=== PATIENT | female | born 1955 | race Caucasian/White ===

== ENCOUNTER → 2018-05-17 09:54 | Outpatient (CLI) | payer MEDICARE, SELFPAY ==
--- NOTE | 2018-05-17 09:58 | RAD_ITS ---
STUDY: X-RAY CHEST REASON FOR EXAM: Female, 63 years old. Chest pain TECHNIQUE: Frontal and lateral views of the chest COMPARISON: 07/01/2015 FINDINGS: There are stable emphysematous changes noted in the lungs. The lungs are otherwise clear. There are no pleural effusions. There is no pneumothorax. The heart is normal in size. The visualized osseous structures are within normal limits. RAD/Chest PA and Lateral IMPRESSION: No acute thoracic pathology. Electronically Signed: Cornelio Zamora, at 18:38 EDT Tel , Service support ,
== END ==
PROVIDERS: Family Provider Preventive Medicine Occupational Medicine; PCP Preventive Medicine Occupational Medicine; Referring Provider Internal Medicine Pulmonary Disease; Visit Provider Internal Medicine Pulmonary Disease
DX: D86.9 Sarcoidosis, unspecified (principal)
CPT/HCPCS: 71046

== ENCOUNTER → 2019-03-02 10:41 | Outpatient (CLI) | payer MEDICARE, SELFPAY ==
[2019-03-02 10:37] VITALS: BMI 26.9
--- NOTE | 2019-03-02 10:42 | RAD_ITS ---
STUDY: X-RAY - RIGHT KNEE REASON FOR EXAM: Knee pain and swelling after a fall. TECHNIQUE: 4 view(s) of the knee. COMPARISON: None. FINDINGS: There is osteopenia. Normal visualized distal femur. Normal visualized proximal tibia and fibula. Normal proximal tibiofibular articulation. Normal medial femorotibial compartment. Normal lateral femorotibial compartment. There are minimal marginal osteophytes and mild joint space narrowing of the patellofemoral articulation. There is a small joint effusion. RAD/Knee 4 or More Views IMPRESSION: Mild patellofemoral arthrosis. Small joint effusion. Osteopenia. Electronically Signed: Eldon Ramírez MD at 12:11 EDT Tel , Service support ,
== END ==
PROVIDERS: Family Provider Preventive Medicine Occupational Medicine; PCP Preventive Medicine Occupational Medicine; Referring Provider Physician Assistant; Visit Provider Physician Assistant
DX: M17.11 Unilateral primary osteoarthritis, right knee (principal); M25.461 Effusion, right knee
CPT/HCPCS: 73564

== ENCOUNTER → 2019-09-22 15:30 | Outpatient (CLI) | payer MEDICARE, MEDICAID, SELFPAY ==
[2019-06-21 12:20] VITALS: BMI 25.3
--- NOTE | 2019-09-22 15:50 | RAD_ITS ---
STUDY: X-RAY CHEST REASON FOR EXAM: Female, 64 years old. cough for a couple weeks, Hx sarcoid TECHNIQUE: PA and lateral views of the chest. COMPARISON: 05/17/2018 FINDINGS: Fibrotic scarring of the right lung is stable since the prior study with retraction of the medial right hemidiaphragm. No airspace consolidation. Normal size heart. There are calcified mediastinal lymph nodes. Normal visualized pulmonary arteries. There is atherosclerotic calcification of the aortic arch with tortuosity. There is demineralization of the osseous structures. Normal visualized ribs, clavicles, and shoulders. There is no demonstrated abnormality of the visualized soft tissue structures of the upper abdomen. RAD/Chest PA and Lateral IMPRESSION: 1. No airspace consolidation or pleural effusion. Stable exam. 2. Similar fibrotic changes, since 2018. Electronically Signed: Dipak Orozco MD (Brooks) at 16:29 EST , Service support ,
[2019-09-22 15:55] LABS: Absolute Lymphocyte Count 0.84 X10^3/uL (0.83-4.51); Absolute Neutrophil Count 5.1 X10^3/uL (2.0-7.7); Basophil# 0.02 X10^3/uL; Basophil% 0.3 % (0-1); Eosinophil# 0.06 X10^3/uL; Eosinophils% 0.9 % (0-5); Hematocrit 37.5 % (37-47); Hemoglobin 12.3 g/dL (12.0-15.0); Lymphocyte # 0.84 X10^3/ul (4.0); Lymphocyte % 12.4 % (19-41); Mean Corp Hgb Conc 32.8 g/dL (32-36); Mean Corpuscular Hgb 31.1 pg (27.0-32.0); Mean Corpuscular Volume 94.7 fL (81-99); Mean Platelet Vol. 11.8 fl (6.2-12.0); Monocyte# 0.78 X10^3/uL; Monocyte% 11.5 % (0-10); NRBC Flagged by Analyzer 0 % (0-5); Neutrophil # 5.08 X10^3/uL (2.7-7.7); Neutrophil % 74.6 % (47-70); Platelet Count 143 K/mm3 (150-450); RBC Distribution Width CV 12.7 % (11.6-14.6); Red Blood Count 3.96 M/mm3 (4.2-5.4); White Blood Count 6.8 K/mm3 (4.4-11.0)
[2019-09-22 16:07] LABS: Erythrocyte Sedimentation Rate 18 mm/hr (0-30)
[2019-09-25 17:41] LABS: Angiotensin Convert Enzyme 76 U/L (14-82)
== END ==
PROVIDERS: PCP Family Medicine; Referring Provider Internal Medicine Pulmonary Disease; Visit Provider Internal Medicine Pulmonary Disease
DX: D86.9 Sarcoidosis, unspecified (principal); J84.9 Interstitial pulmonary disease, unspecified
CPT/HCPCS: 36415; 71046; 82164; 85025; 85652; 87804

== ENCOUNTER 2019-09-23 13:27 | Inpatient (IN) | payer MEDICARE, MEDICAID, SELFPAY ==
[2019-06-21 12:20] VITALS: BMI 25.3
[2019-09-23] VITALS (25 sets, daily range): BP systolic 84–172; BP diastolic 24–93; PULSE 80–129; RESP 12–30; TEMP 36.1–36.8; O2SAT 90–100; BMI 24.7; BMI 24.2
--- NOTE | 2019-09-23 14:00 | RAD_ITS ---
STUDY: X-RAY CHEST REASON FOR EXAM: Female, 64 years old. cough TECHNIQUE: Single AP portable view of the chest. COMPARISON: 09/22/2019, 05/17/2018 FINDINGS: Fibrotic scarring of the right lung is stable since the prior study with retraction of the medial right hemidiaphragm. No airspace consolidation. Normal size heart. There are calcified mediastinal lymph nodes. Normal visualized pulmonary arteries. There is atherosclerotic calcification of the aortic arch with tortuosity. There is demineralization of the osseous structures. Normal visualized ribs, clavicles, and shoulders. There is no demonstrated abnormality of the visualized soft tissue structures of the upper abdomen. RAD/Chest 1 View (Portable) IMPRESSION: 1. No airspace consolidation or pleural effusion. Stable exam. 2. Similar fibrotic changes, since 2018. Electronically Signed: Dipak Orozco MD (Brooks) at 14:36 EST , Service support ,
--- NOTE | 2019-09-23 14:00 | EKG12_ITS ---
Test Reason : Blood Pressure : / mmHG Vent. Rate : 074 BPM Atrial Rate : 074 BPM P-R Int : 142 ms QRS Dur : 080 ms QT Int : 404 ms P-R-T Axes : 030 019 058 degrees QTc Int : 448 ms Normal sinus rhythm Nonspecific ST abnormality Abnormal ECG Confirmed by NOMAN GUO, DAMIAN ([id number]), news assignment editor CRISTIAN SMILEY ([id number]) on 09/25/2019 2:14:29 PM Referred By: ALPESH Confirmed By:SERA TINEO MD
--- NOTE | 2019-09-23 14:02 | ED.DCSUM_ITS ---
- ER Visit Summary Date of Service: 09/23/19 Chief Complaint: Shortness of breath History of Present Illness: The patient is a 64 F who presents with shortness of breath that has been getting worse over the past 5 days. Patient states her breathing is worse with any exertion and with lying flat. Patient lives at [facility]. Patient was having a fever there of 101.2. Patient was started on Levaquin yesterday. Patient states she is only coughing up some white sputum. Patient also admits to a sore throat and generalized weakness. Patient denies any chest pain. Patient denies any nausea or vomiting. Physical Examination: Vital signs are stable except for a tachypnea of 28. Patient is afebrile here. Patient is in no acute distress. Oral mucosa is pink and moist. Neck is supple. Trachea is midline. There is no JVD. Heart was regular rate and rhythm. Lungs showed diffuse rhonchi. There is adequate respiratory effort. There are no retractions noted. Abdomen is soft. Bowel sounds are normal. There is no tenderness. Cranial nerves II through XII are intact. There are no focal motor or sensory deficits noted. Test Results: Sepsis order set was initiated. CBC shows a mild anemia with hemoglobin of 11.8 and hematocrit 36.7. Comprehensive metabolic profile was essentially within normal limits. PT with INR was normal. PTT was normal. Urinalysis does not show any evidence of urinary tract infection. Lactate was elevated at 2.2. Portable chest x-ray does not show any acute cardiopulmonary process. Emergency Department Course and Treatment: Patient was given IV fluids here. Patient is feeling better on reevaluation. Patient was started on Zosyn and vancomycin. Case was discussed with the hospitalist. He will admit the patient to the hospital. Family and the patient understand and are agreeable with the plan. Disposition: Admit to hospital Impression: 1. Severe sepsis 2. Clinical pneumonia This note was generated with [employer] dictation software. It may contain incorrect words, spelling, and punctuation that were not noted in review of the chart prior to signing ED Disposition - Plan for ED Patient: Disposition: Acute Care Hospital [facility] Diagnosis: Severe sepsis, Pneumonia Referrals: Rodger Obregon DO [Primary Care Provider] -
[2019-09-23] MEDS: 0.9% Normal Saline 1,000 ML 999 ML IV ×2 (14:11→19:09)
[2019-09-23 14:14] LABS: Absolute Lymphocyte Count 0.59 X10^3/uL (0.83-4.51); Absolute Neutrophil Count 6.5 X10^3/uL (2.0-7.7); Basophil# 0.02 X10^3/uL; Basophil% 0.2 % (0-1); Hematocrit 36.7 % (37-47); Hemoglobin 11.8 g/dL (12.0-15.0); Lymphocyte # 0.59 X10^3/ul (4.0); Lymphocyte % 7.2 % (19-41); Mean Corp Hgb Conc 32.2 g/dL (32-36); Mean Corpuscular Hgb 30.3 pg (27.0-32.0); Mean Corpuscular Volume 94.1 fL (81-99); Mean Platelet Vol. 11.6 fl (6.2-12.0); Monocyte# 1.01 X10^3/uL; Monocyte% 12.4 % (0-10); NRBC Flagged by Analyzer 0 % (0-5); Neutrophil # 6.52 X10^3/uL (2.7-7.7); Neutrophil % 79.8 % (47-70); POSITIVE DIFFERENTIAL YES; POSITIVE MORPHOLOGY YES; Platelet Count 125 K/mm3 (150-450); RBC Distribution Width CV 12.7 % (11.6-14.6); RBC Distribution Width SD 43.9 fl (35.1-43.9); White Blood Count 8.2 K/mm3 (4.4-11.0)
[2019-09-23 14:19] LABS: Differential Indicated SCAN CRITERIA MET
[2019-09-23 14:22] LABS: International Normalized Ratio 1.1; Prothrombin Time (Protime)PT. 14.1 SECONDS (11.7-14.9)
[2019-09-23 14:23] LABS: Partial Thromboplast Time 31.1 Seconds (24.1-36.2)
[2019-09-23 14:31] LABS: ALB/GLOB Ratio 0.7 RATIO (0.9-2.4); AST(SGOT) 16 U/L (15-37); Alanine Aminotransfer ALT/SGPT 15 U/L (13-56); Albumin, Serum 3.2 g/dL (3.2-5.0); Alkaline Phosphatase 60 U/L (45-117); Anion Gap 6 (5-15); BUN 28 mg/dL (7-18); BUN/Creat Ratio 32.7 RATIO (10-20); Calcium,Total 9.3 mg/dL (8.5-10.1); Chloride 105 mmol/L (98-107); Creatinine, Serum 0.86 mg/dL (0.55-1.02); EST Glomerular Filtration Rate 70 mL/min (>60); Est Glom Filt Rate - Afr Amer 85 mL/min (>60); Estimated Creatinine Clearance 53.23 ml/min; Globulin 4.6 g/dL (2.2-4.2); Glucose 109 mg/dL (74-106); Potassium 4.2 mmol/L (3.5-5.1); Protein, Total 7.8 g/dL (6.4-8.2); Sodium Level 140 mmol/L (136-145)
[2019-09-23 14:43] LABS: Bacteria 0 SEEN /hpf (None Seen); Mucous, Urine 0 SEEN /hpf (<or=2+)
[2019-09-23 14:45] LABS: Differential Comment SCANNED
[2019-09-23 14:50] LABS: Lactic Acid 2.2 mmol/L (0.4-1.9)
[2019-09-23 14:52] LABS: Color, Urine Yellow (Yellow); Glucose, Dipstick Normal (Normal); Leukocyte Esterase-Dipstick 25 /ul (Negative); Nitrite-Dipstick Negative (Negative); Occult Blood-Urine 50 /ul (Negative); Protein-Dipstick 100 mg/dl (Negative); Specific Gravity, Urine 1.025 (1.002-1.030); Urine Clarity Clear (Clear); Urine Urobilinogen 1 mg/dl (Normal)
[2019-09-23 14:54] LABS: Urine Bilirubin Dipstick 1 mg/dL (Negative)
[2019-09-23 14:56] LABS: Ketone-Dipstick 150 mg/dl (Negative)
[2019-09-23 15:05] LABS: Red Blood Cells-Urine 0-5 SEEN /hpf (0-5); Squamous Epithelial Cells - UA 0-5 SEEN /hpf (5-10); White Blood Cells 0-5 SEEN /hpf (0-5)
--- NOTE | 2019-09-23 16:02 | HP.PCM_ITS ---
<Rhett Maldonado - Last Filed: 09/23/19 16:02> Problem List (1) Severe sepsis Status: Acute (2) Bronchitis Status: Acute (3) Asthma Status: Chronic (4) Traumatic brain injury Status: Chronic (5) Pulmonary sarcoidosis Status: Chronic (6) Essential (primary) hypertension Status: Chronic (7) Cerebrovascular accident Status: Chronic History of Present Illness Date of Admission: 09/23/19 Chief Complaint: SOB The patient is a 64 year old F with pmhx of sarcoidosis, traumatic brain injury with behavioral disturbances, prior stroke, asthma, who presented to the ER from [facility] for SOB. The patient started feeling SOB on Wednesday. She was progressively more SOB every day, developed a nonproductive cough, and developed a fever up to 101.5 [facility] the [facility]. She went to see her test bore helper Dr. Diaz who placed her on steroids and levaquin. She had no relief. She has been more tired and not eating. She presents to the ER and feels SOB with a venti mask providing O2, however she was 94% on room air in the ER. Her is present and would like her admitted with IV fluid and antibiotics despite her DNRCC status. He does not want intubation/mechanical vent/CPR. [] Past Medical History Past Medical History (Chronic Problems): Chronic Problems (Last Reviewed 06/21/19 @ 14:[address] Josue Gregory MD) Asthma (Chronic) Traumatic brain injury (Chronic) Pulmonary sarcoidosis (Chronic) Essential (primary) hypertension (Chronic) Cerebrovascular accident (Chronic) Medical History: Medical History (Last Reviewed 06/21/19 @ 14:[address] Josue Gregory MD) Pulmonary sarcoidosis (Chronic) D86.0 Cerebrovascular accident (Chronic) I63.9 Anoxic brain damage Aphasia R47.01 Dysarthria R47.1 Dysphagia R13.10 Hypothyroid E03.9 History of cardiac arrest Z86.74 09/22/2013 Takotsubo cardiomyopathy I51.August Allergies Sulfa (Sulfonamide Antibiotics) Allergy (Severe, Verified 09/23/19 13:33) Hives Home Medications: Ambulatory Orders Medication Instructions Recorded Aspirin [Aspirin, Baby] 81 mg PO DAILY@0800 01/24/14 albuterol sulfate 2.5 mg INHALATION BID PRN PRN 05/11/18 carvedilol 3.125 mg tablet 6.25 mg PO BID tab 06/21/19 divalproex 250 mg tablet,delayed 375 mg PO QHS tab 06/21/19 release Acetaminophen 650 mg ID Q4H PRN PRN 09/23/19 Acetaminophen [Tylenol] 650 mg PO Q4H PRN PRN 09/23/19 Albuterol Sulfate 2.5 mg IH Q6H PRN PRN 09/23/19 Bisacodyl 10 mg ID DAILY PRN PRN 09/23/19 Budesonide 0.5 mg IH BID PRN PRN 09/23/19 Cefuroxime Axetil [Cefuroxime] 500 mg PO BID 09/23/19 Guaifenesin [Robitussin] 10 ml PO Q4H PRN PRN 09/23/19 Hydrocortisone Acetate 1 applic TP TID 09/23/19 Ipratropium/Albuterol Sulfate 3 ml IH Q4H 09/23/19 [Iprat-Albut 0.5-3(2.5) mg/3 ml] Levofloxacin [Levaquin] 500 mg PO DAILY 09/23/19 Mag Hydrox/Aluminum Hyd/Simeth 30 ml PO Q4H PRN PRN 09/23/19 [Antacid Anti-Gas Liquid] Magnesium Hydroxide [Milk Of 30 ml PO DAILY PRN PRN 09/23/19 Magnesia] Na Phos,M-B/Na Phos,Di-Ba [Fleet 1 bottle RECTAL DAILY PRN PRN 09/23/19 Enema] Nystatin Powder [Mycostatin Powder] 1 applic TOPICAL TID 09/23/19 Potassium Chloride [Klor-Con M20] 20 meq PO DAILY 09/23/19 Prednisone 20 mg PO DAILY 09/23/19 Prednisone 40 mg PO DAILY 09/23/19 Sennosides/Docusate Sodium [Senna 2 ea PO QHS 09/23/19 Plus 8.6-50 mg Softgel] Simethicone [Gas-X] 80 mg PO DAILY PRN PRN 09/23/19 Surgical History: Surgical History (Last Reviewed 06/21/19 @ 14:[address] Josue Gregory MD) History of left heart catheterization Onset Date: 08/08/13 Z98.890 08/08/2013 [facility] per Dr. Berny Gross: normal coronaries, [place] cardiomyopathy noted. 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 History: No pertinent [employer]PLICATION[employer] history Lives: [facility] Smoking Status: Never smoker Tobacco Use: Non-smoker Alcohol: None Drugs: None - *Family History Maternal Family History: Family History (Last Reviewed 09/23/19 @ 16:07 by LUCINA Ruano) Mother Hypertension Thyroid disorder History Items: Hypertension, - - Grave's dz Paternal Family History: Family History (Last Reviewed 09/23/19 @ 16:07 by LUCINA Ruano) Mother Hypertension Thyroid disorder History Items: No pertinent history Sibling Family History: Family History (Last Reviewed 09/23/19 @ 16:07 by LUCINA Ruano) Mother Hypertension Thyroid disorder History Items: No pertinent history Review of Systems Constitutional: Reports: Fever, Fatigue. Denies: Chills, Weight Change HEENT: Denies: Head Aches, Sinus Congestion, Sinus Drainage Cardiovascular: Denies: Chest Pain, Edema, Light Headedness, Palpitations Respiratory: Reports: Cough, Shortness of Breath, Shortness of breath at rest. Denies: Sputum production Gastrointestinal: Denies: Abdominal Pain, Nausea, Vomiting Genitourinary: Denies: Dysuria Musculoskeletal: Denies: Joint Pain, Joint Tenderness Skin: Denies: Rash, Wounds Neurological: Denies: Numbness, Tingling, Focal weakness Psychiatric: Denies: Anxiety, Depression, Homicidal Ideations, Suicidal Ideations Hematologic/ Lymphatic: Denies: Easy Bruising, Easy Bleeding VTE Information - Inpt Only VTE Present on Admission: No VTE Mechan Device Prophylaxis: None VTE Pharm Prophylaxis ordered?: Yes Patient Problems: Active and Suspected Problems (Last Reviewed 06/21/19 @ 14:[address] Josue Gregory MD) Severe sepsis (Acute) Pneumonia (Acute) Bronchitis (Acute) - Physical Exam Vitals/I&O's: Vital Signs Temp Pulse Resp BP Pulse Ox 98.3 F 89 21 H 102/43 L 96 09/23/19 15:16 09/23/19 15:14 09/23/19 15:14 09/23/19 15:14 09/23/19 15:14 Oxygen Flow Rate (L/min) 4 Oxygen Delivery Method Venturi Mask Weight: 139 lb 12.369 oz Body Mass Index (BMI) 24.7 Intake and Output for Last 24 Hours 09/21/19 09/22/19 09/23/19 23:59 23:59 23:59 Intake Total 1100 / 1100 Balance 1100 / 1100 General: Alert, Oriented x3, Cooperative HEENT: Atraumatic, PERRLA, EOMI, Normocephalic Neck: Supple, No JVD, Negative Carotid Bruits Lungs: Clear to auscultation, Normal air movement, Rales - throughout Cardiovascular: Regular rate, No murmurs Abdomen: Bowel Sounds Present, Soft, Non Tender Extremities: No edema, Capillary Refill Less than 3 Seconds Skin: No rashes, No breakdown Musculoskeletal: No Tenderness to Palpation of Joints or Extremities Neurological: Cranial nerves II-XII grossly intact Psych/Mental Status: Normal Affect, Appropriate, Alert and oriented to time, place, person, mood and affect Laboratory Results 09/23/19 13:58: WBC 8.2, RBC 3.90 L, Hgb 11.8 L, Hct 36.7 L, MCV 94.1, MCH 30.3, MCHC 32.2, RDW Std Deviation 43.9, RDW Coeff of Phylicia 12.7, Plt Count 125 L, MPV 11.6, Immature Gran % (Auto) 0.400, Neut % (Auto) 79.8 H, Lymph % (Auto) 7.2 L, Duval % (Auto) 12.4 H, Eos % (Auto) 0.0, Baso % (Auto) 0.2, Absolute Neuts (auto) 6.5, Absolute Lymphs (auto) 0.59 L, Nucleated RBC % 0, Differential Comment SCANNED 09/23/19 13:58: PT 14.1, INR 1.1, APTT 31.1 09/23/19 13:58: Sodium 140, Potassium 4.2, Chloride 105, Carbon Dioxide 29.0, Anion Gap 6, BUN 28 H, Creatinine 0.86, Estim Creat Clear Calc 53.23, Est GFR (MDRD) Af Amer 85, Est GFR (MDRD) Non-Af 70, BUN/Creatinine Ratio 32.7 H, Gluco se 109 H, Calcium 9.3, Total Bilirubin 1.10 H, AST 16, ALT 15, Alkaline Phosphatase 60, Total Protein 7.8, Albumin 3.2, Globulin 4.6 H, Albumin/Globulin Ratio 0.7 L 09/23/19 13:58: Lactic Acid 2.2 H* 09/23/19 14:39: Urine Color Yellow, Urine Clarity Clear, Urine pH 5.0, Ur Specific [place] 1.025, Urine Protein 100 H, Urine Glucose (UA) Normal, Urine Ketones 150 H, Urine Occult Blood 50 H, Urine Nitrite Negative, Urine Bilirubin 1 H, Urine Urobilinogen 1 H, Ur Leukocyte Esterase 25 H, Urine RBC 0-5 SEEN, Urine WBC 0-5 SEEN, Ur Squamous Epith Cells 0-5 SEEN, Urine Bacteria 0 SEEN, Urine Mucus 0 SEEN Current Medications Vancomycin HCl 1,500 mg/ (Sodium Chloride) 530 mls @ 250 mls/hr IV X1 ONE Stop: 09/23/19 18:07 Assessment/Plan All Active Problems (Last Reviewed 06/21/19 @ 14:[address] Josue Gregory MD) Severe sepsis (Acute) Pneumonia (Acute) Bronchitis (Acute) 1. Acute severe sepsis 2/2 acute bronchitis - + LA, afebrile, no leukcoytosis, tachypnea, pulse >90, increased t bili. Continue vanc/zosyn. failed levaquin/prednisone. panculture. Continue IV fluids. Pt to go to the ICU. Respiratory viral panel pending. Rapid flu pending. UA neg. Add IS/PEP/mucinex. 2. Sarcoidosis with pulmonary manifestations - pt of dr. Diaz. Start IV solumedrol. Encourage IS/PEP therapy. 3. TBI with behavioral disturbance - continue depakote. 6 years prior had asthma exacerbation and stroke, ativan withdrawal seizures, and cardiac arrest requiring 8 minutes of CPR contributing to TBI. 4. Thrombocytopenia - mild, trend. 5. hx CVA - on aspirin, no statin. 6. Hx asthma - continue prn albuterol, duonebs DVT ppx: lovenox DC planning: return to [facility] when appropriate. Pt is DNRCC. Discussed with , he does not want CPR / intubation / vent. He wants IV fluids and antibiotics. This patient was seen by Rhett Maldonado PA-C under the supervision of Dr. Edouard. <Danny Edouard - Last Filed: 09/23/19 17:07> History of Present Illness The patient is a 64 year old F [] Past Medical History Medical History: Medical History (Last Reviewed 06/21/19 @ 14:[address] Josue Gregory MD) Pulmonary sarcoidosis (Chronic) D86.0 Cerebrovascular accident (Chronic) I63.9 Anoxic brain damage Aphasia R47.01 Dysarthria R47.1 Dysphagia R13.10 Hypothyroid E03.9 History of cardiac arrest Z86.74 09/22/2013 Takotsubo cardiomyopathy I51.August Allergies Sulfa (Sulfonamide Antibiotics) Allergy (Severe, Verified 09/23/19 13:33) Hives Surgical History: Surgical History (Last Reviewed 06/21/19 @ 14:[address] Josue Gregory MD) History of left heart catheterization Onset Date: 08/08/13 Z98.890 08/08/2013 [facility] per Dr. Berny Goncalves: normal coronaries, [place] cardiomyopathy noted. History of Z98.891 X3 History of lung biopsy Z98.890 - *Family History Maternal Family History: Family History (Last Reviewed 09/23/19 @ 16:07 by LUCINA Ruano) Mother Hypertension Thyroid disorder Paternal Family History: Family History (Last Reviewed 09/23/19 @ 16:07 by LUCINA Ruano) Mother Hypertension Thyroid disorder Sibling Family History: Family History (Last Reviewed 09/23/19 @ 16:07 by LUCINA Ruano) Mother Hypertension Thyroid disorder - Physical Exam Vitals/I&O's: Vital Signs Temp Pulse Resp BP Pulse Ox 97.5 F L 90 26 H 117/48 L 98 09/23/19 16:07 09/23/19 16:07 09/23/19 16:07 09/23/19 16:07 09/23/19 16:07 Oxygen Flow Rate (L/min) 4 Oxygen Delivery Method Venturi Mask Weight: 136 lb 10.986 oz Body Mass Index (BMI) 24.2 Intake and Output for Last 24 Hours 09/21/19 09/22/19 09/23/19 23:59 23:59 23:59 Intake Total 1100 / 1100 Balance 1100 / 1100 Microbiology Past 72 Hours 09/23/19 16:00 Mucosa - Nasopharyngeal Influenza Types A,B Direct FA (SILVIA) - Final Laboratory Results 09/23/19 13:58: WBC 8.2, RBC 3.90 L, Hgb 11.8 L, Hct 36.7 L, MCV 94.1, MCH 30.3, MCHC 32.2, RDW Std Deviation 43.9, RDW Coeff of Phylicia 12.7, Plt Count 125 L, MPV 11.6, Immature Gran % (Auto) 0.400, Neut % (Auto) 79.8 H, Lymph % (Auto) 7.2 L, Duval % (Auto) 12.4 H, Eos % (Auto) 0.0, Baso % (Auto) 0.2, Absolute Neuts (auto) 6.5, Absolute Lymphs (auto) 0.59 L, Nucleated RBC % 0, Differential Comment SCANNED 09/23/19 13:58: PT 14.1, INR 1.1, APTT 31.1 09/23/19 13:58: Sodium 140, Potassium 4.2, Chloride 105, Carbon Dioxide 29.0, Anion Gap 6, BUN 28 H, Creatinine 0.86, Estim Creat Clear Calc 53.23, Est GFR (MDRD) Af Amer 85, Est GFR (MDRD) Non-Af 70, BUN/Creatinine Ratio 32.7 H, Glucose 109 H, Calcium 9.3, Total Bilirubin 1.10 H, AST 16, ALT 15, Alkaline Phosphatase 60, Total Protein 7.8, Albumin 3.2, Globulin 4.6 H, Albumin/Globulin Ratio 0.7 L 09/23/19 13:58: Lactic Acid 2.2 H* 09/23/19 14:39: Urine Color Yellow, Urine Clarity Clear, Urine pH 5.0, Ur Specific [place] 1.025, Urine Protein 100 H, Urine Glucose (UA) Normal, Urine Ketones 150 H, Urine Occult Blood 50 H, Urine Nitrite Negative, Urine Bilirubin 1 H, Urine Urobilinogen 1 H, Ur Leukocyte Esterase 25 H, Urine RBC 0-5 SEEN, Urine WBC 0-5 SEEN, Ur Squamous Epith Cells 0-5 SEEN, Urine Bacteria 0 SEEN, Urine Mucus 0 SEEN Current Medications Al Hydroxide/Mg Hydroxide (Mylanta Ii) 30 ml PO Q4H PRN PRN PRN Reason: INDIGESTION Albuterol Sulfate (Ventolin Aerosols) 2.5 mg INHALATION BID PRN PRN PRN Reason: SOB &/OR WHEEZING Albuterol/Ipratropium (Duoneb) 3 ml INHALATION Q4HWA.RT SILVIA Aspirin (Aspirin, Baby) 81 mg PO DAILY@0800 SILVIA Bisacodyl (Dulcolax) 10 mg RECTAL DAILY PRN PRN PRN Reason: Constipation Budesonide (Pulmicort Aerosol) 0.5 mg INHALATION BID PRN PRN PRN Reason: SOB &/OR WHEEZING Carvedilol (Coreg) 6.25 mg PO BID [facility] Dextrose (D50w Syringe) 0 gm IV X1 PRN; Protocol PRN Reason: Hypoglycemia Divalproex Sodium (Depakote) 375 mg PO QHS SILVIA Enoxaparin Sodium (Lovenox) 40 mg SC DAILY SILVIA Glucagon () 1 mg IM .X1 PRN PRN Reason: Hypoglycemia Guaifenesin (Robitussin) 10 ml PO Q4H PRN PRN PRN Reason: COUGH Vancomycin HCl 1,500 mg/ (Sodium Chloride) 530 mls @ 250 mls/hr IV X1 ONE Stop: 09/23/19 18:07 Last Admin: 09/23/19 16:05 Dose: 250 mls/hr Documented by: Sodium Chloride () 1,000 mls @ 100 mls/hr IV .Q10H SILVIA Vancomycin IV Pharmacy to Dose (1 ea/ Sodium Chloride) 500 mls @ 250 mls/hr IV X1 PRN; Protocol PRN Reason: Rx to Dose Piperacillin Sod/Tazobactam (Sod 3.375 gm/ Sodium Chloride) 50 mls @ 12.5 mls/hr IV Q8 [facility] Vancomycin HCl () 500 mg in 100 mls @ 100 mls/hr IV Q12H [facility] Magnesium Hydroxide (Milk Of Magnesia) 30 ml PO DAILY PRN PRN PRN Reason: Constipation Methylprednisolone (Solu-Medrol) 40 mg IV Q8 [facility] Sodium Biphosphate/Sodium Phosphate (Fleet Enema) 1 bottle RECTAL DAILY PRN PRN PRN Reason: Constipation Code Visit Addendum: Dr. Edouard I personally examined the patient and reviewed the chart. I agree with the above. 64-year-old female who had an anoxic brain injury 6 years ago. She had a seizure and an asthma attack at the same time and she was transferred to [facility], she had to be intubated at that time and the doctor said that her brain was without oxygen for 8 minutes. Since that and she has had issues with medications, she did have hallucinations while going through Ativan withdrawal, she was on the Ativan for her tremors. She is currently been in rehab since July. She has been [facility] since August. She was having decreased appetite and a cough for the last several days and she was started on Levaquin and prednisone at [facility], however today she was hypoxic and had a fever to 101.5. She was brought in and had to be placed on a Ventimask to maintain her oxygen sats in the mid to high 90s. She initially was tachypneic, but as she has been calm better oxygenated her tachypnea has resolved. Her urine was negative and her chest x-ray was negative however viral studies are pending. Her lactate was elevated to 2.2, and since she has severe sepsis will be transferred to the ICU with an bark spudder consult. We will start her on steroids as well as breathing treatments and continue with high- dose antibiotics until cultures are completed. She was given fluid bolus in the ER and was started on IV maintenance fluid on admission. Inpatient E&M: [id number] In Hosp L3
--- NOTE | 2019-09-23 16:20 | ED.RN ---
report given to alma in icu.
--- NOTE | 2019-09-23 16:50 | PCM.RX.CS ---
Consult Pharmacy has been consulted to manage selected antiobiotic: Vancomycin Type of Consult: New start Prior Doses of Antibiotics Received/Current Regimen: Medications Vancomycin HCl 1,500 mg/ (Sodium Chloride) 530 mls @ 250 mls/hr IV X1 ONE Stop: 09/23/19 18:07 Last Admin: 09/23/19 16:05 Dose: 250 mls/hr Documented by: Labs: Sodium 140 mmol/L (136-145) 09/23/19 13:58 Potassium 4.2 mmol/L (3.5-5.1) 09/23/19 13:58 Chloride 105 mmol/L (98-107) 09/23/19 13:58 Carbon Dioxide 29.0 mmol/L (21.0-32.0) 09/23/19 13:58 Anion Gap 6 (5-15) 09/23/19 13:58 BUN 28 mg/dL (7-18) H 09/23/19 13:58 Creatinine 0.86 mg/dL (0.55-1.02) 09/23/19 13:58 Est GFR (MDRD) Af Amer 85 mL/min (>60) 09/23/19 13:58 Est GFR (MDRD) Non-Af 70 mL/min (>60) 09/23/19 13:58 BUN/Creatinine Ratio 32.7 RATIO (10-20) H 09/23/19 13:58 Glucose 109 mg/dL (74-106) H 09/23/19 13:58 Microbiology: Microbiology 09/23/19 16:00 Mucosa - Nasopharyngeal Influenza Types A,B Direct FA (SILVIA) - Final Weight used for dosin kg Estimated Creatinine Clearance: 53 Goal Trough: 15-20 mcg/mL Pharmacy Plan for Drug Dosing: Initial vanc dose in ED 1500mg, 500mg IV q12h per policy with trough prior to 4th dose. Pharmacy Service will continue to monitor and adjust dosing as required. Follow-Up Labs: Trough Vancomycin - 09/25 @0530
[2019-09-23] MEDS: 0.9% Normal Saline 1,000 ML 100 ML IV (17:05)
[2019-09-23] MEDS: Ipratropium/Albuterol Sulfate 3 ML AMPUL.NEB INHALATION ×2 (17:35→20:34)
[2019-09-23 18:07] LABS: Reflex Lactate? Y
[2019-09-23 18:56] LABS: Lactic Acid 1.3 mmol/L (0.4-1.9)
--- NOTE | 2019-09-23 20:11 | RAD_ITS ---
STUDY: X-RAY CHEST REASON FOR EXAM: Female, 64 years old. SEVERE SEPSIS, SHORT OF BREATH TECHNIQUE: Single AP portable view of the chest. COMPARISON: 09/23/2019 1423 FINDINGS: The lungs are clear and expanded. There is no demonstrated pleural abnormality. There is moderate cardiac enlargement. Normal mediastinum and vivi. Normal visualized pulmonary arteries. Normal visualized aortic arch and descending thoracic aorta. Normal visualized thoracic spine. Normal visualized ribs, clavicles, and shoulders. There is no demonstrated abnormality of the visualized soft tissue structures of the upper abdomen. RAD/Chest 1 View (Portable) IMPRESSION: No active disease. Electronically Signed: Seth Blandon MD at 20:37 EST Tel , Service support ,
[2019-09-23] MEDS: Divalproex Sodium 125 MG Tablet PO (21:48)
[2019-09-23] MEDS: Divalproex Sodium 250 MG Tablet PO (21:49)
[2019-09-24] VITALS (29 sets, daily range): BP systolic 84–162; BP diastolic 49–111; PULSE 74–96; RESP 7–25; TEMP 36.2–36.8; O2SAT 90–97
[2019-09-24] MEDS: Vancomycin IV 500 MG/100 ML BAG 100 MG IV (05:31)
[2019-09-24 06:17] LABS: Absolute Lymphocyte Count 0.43 X10^3/uL (0.83-4.51); Absolute Neutrophil Count 4.7 X10^3/uL (2.0-7.7); Hematocrit 29.2 % (37-47); Hemoglobin 9.2 g/dL (12.0-15.0); Lymphocyte # 0.43 X10^3/ul (4.0); Lymphocyte % 7.9 % (19-41); Mean Corp Hgb Conc 31.5 g/dL (32-36); Mean Corpuscular Volume 95.1 fL (81-99); Mean Platelet Vol. 12.4 fl (6.2-12.0); Monocyte# 0.25 X10^3/uL; Monocyte% 4.6 % (0-10); NRBC Flagged by Analyzer 0 % (0-5); Neutrophil # 4.72 X10^3/uL (2.7-7.7); Neutrophil % 87.1 % (47-70); POSITIVE DIFFERENTIAL YES; POSITIVE MORPHOLOGY YES; Platelet Count 107 K/mm3 (150-450); RBC Distribution Width SD 44.6 fl (35.1-43.9); Red Blood Count 3.07 M/mm3 (4.2-5.4); White Blood Count 5.4 K/mm3 (4.4-11.0)
[2019-09-24 06:20] LABS: Differential Indicated SCAN CRITERIA MET
--- NOTE | 2019-09-24 06:23 | CON.PCM_ITS ---
Reason for Consult Date of Consultation: 09/24/19 Reason for Consultation: Severe Sepsis/Respiratory Failure History of Present Illness: The patient is a 64-year-old female, with a history as outlined below, who presented to the emergency department on September 23 with complaints of shortness of breath and subjective fever. The patient has an apparent history of pulmonary sarcoid, asthma, prior CVA and traumatic brain injury. The patient had just been evaluated by her primary production editor, Dr. Diaz, prior to presenting to the emergency department. She was apparently placed on Levaquin and steroids. However, she did not respond clinically. On presentation to the emergency department, the patient was noted to be afebrile and hemodynamically stable. She was, nevertheless, tachypneic but maintaining appropriate oxygen saturations on room air. Laboratory evaluation revealed no evidence of a leukocytosis. Coagulation profile is within normal limits. Chemistry profile was largely unrevealing. Lactate was mildly elevated to 2.2. Urine analysis was negative for nitrites but positive for leukocyte esterase. Plain film chest x-ray revealed no acute cardiopulmonary process. The patient was provided with supplemental IV fluid hydration and was started on broad-spectrum antimicrobials. She was then admitted to the medical intensive care unit for further management. Overnight, nursing staff reported that the patient began to sounds wet. Following this, the patient had to be started on BiPAP therapy. Past Medical History Past Medical History (Chronic Problems): Chronic Problems (Last Reviewed 06/21/19 @ 14:[address] Josue Gregory MD) Asthma (Chronic) Traumatic brain injury (Chronic) Pulmonary sarcoidosis (Chronic) Essential (primary) hypertension (Chronic) Cerebrovascular accident (Chronic) Medical History: Medical History (Last Reviewed 06/21/19 @ 14:[address] Josue Gregory MD) Pulmonary sarcoidosis (Chronic) D86.0 Cerebrovascular accident (Chronic) I63.9 Anoxic brain damage Aphasia R47.01 Dysarthria R47.1 Dysphagia R13.10 Hypothyroid E03.9 History of cardiac arrest Z86.74 09/22/2013 [place] cardiomyopathy I51.August Allergies Sulfa (Sulfonamide Antibiotics) Allergy (Severe, Verified 09/23/19 13:33) Hives Home Medications: Ambulatory Orders Medication Instructions Recorded Aspirin [Aspirin, Baby] 81 mg PO DAILY@0800 06/25/14 albuterol sulfate 2.5 mg INHALATION BID PRN PRN 12/10/17 carvedilol 3.125 mg tablet 6.25 mg PO BID tab 06/21/19 divalproex 250 mg tablet,delayed 375 mg PO QHS tab 06/21/19 release Acetaminophen 650 mg MD Q4H PRN PRN 09/23/19 Acetaminophen [Tylenol] 650 mg PO Q4H PRN PRN 09/23/19 Albuterol Sulfate 2.5 mg IH Q6H PRN PRN 09/23/19 Bisacodyl 10 mg MD DAILY PRN PRN 09/23/19 Budesonide 0.5 mg IH BID PRN PRN 09/23/19 Guaifenesin [Robitussin] 10 ml PO Q4H PRN PRN 09/23/19 Hydrocortisone Acetate 1 applic TP TID 09/23/19 Ipratropium/Albuterol Sulfate 3 ml IH Q4H 09/23/19 [Iprat-Albut 0.5-3(2.5) mg/3 ml] Mag Hydrox/Aluminum Hyd/Simeth 30 ml PO Q4H PRN PRN 09/23/19 [Antacid Anti-Gas Liquid] Magnesium Hydroxide [Milk Of 30 ml PO DAILY PRN PRN 09/23/19 Magnesia] Na Phos,M-B/Na Phos,Di-Ba [Fleet 1 bottle RECTAL DAILY PRN PRN 09/23/19 Enema] Nystatin Powder [Mycostatin Powder] 1 applic TOPICAL TID 09/23/19 Potassium Chloride [Klor-Con M20] 20 meq PO DAILY 09/23/19 Sennosides/Docusate Sodium [Senna 2 ea PO QHS 09/23/19 Plus 8.6-50 mg Softgel] Simethicone [Gas-X] 80 mg PO DAILY PRN PRN 09/23/19 Amoxicillin/Potassium Clav 1 ea PO BID #9 tab 09/25/19 [Augmentin 875-125 Tablet] Prednisone 10 mg PO UD #30 tab 09/25/19 Quetiapine Fumarate [Seroquel] 25 mg PO 2000 #60 tab 09/25/19 Surgical History: Surgical History (Last Reviewed 06/21/19 @ 14:[address] Josue Gregory MD) History of left heart catheterization Onset Date: 08/08/13 Z98.890 08/08/2013 [facility] per Dr. Berny Goncalves: normal coronaries, [place] cardiomyopathy noted. History of Z98.891 X3 History of lung biopsy Z98.890 Surgical History: - Psychiatric History: No pertinent psych hx COGNOS ANALYST History: No pertinent COGNOS ANALYST history Lives: Snf Smoking Status: Never smoker Tobacco Use: Non-smoker Alcohol: None Drugs: None - *Family History Maternal Family History: Family History (Last Reviewed 09/23/19 @ 16:07 by LUCINA Ruano) Mother Hypertension Thyroid disorder History Items: Hypertension, - - Grave's dz Paternal Family History: Family History (Last Reviewed 09/23/19 @ 16:07 by LUCINA Ruano) Mother Hypertension Thyroid disorder History Items: No pertinent history Sibling Family History: Family History (Last Reviewed 09/23/19 @ 16:07 by LUCINA Ruano) Mother Hypertension Thyroid disorder History Items: No pertinent history Review of Systems Constitutional: Reports: Chills, Fever, Fatigue Eyes: Denies: Blurred vision, Double vision HEENT: Reports: Dysphasia Cardiovascular: Denies: Chest Pain, Palpitations Respiratory: Reports: Cough, Shortness of Breath Gastrointestinal: Denies: Abdominal Pain, Nausea, Vomiting Genitourinary: Denies: Dysuria Musculoskeletal: Denies: Joint Pain, Joint Tenderness Skin: Denies: Rash, Wounds Neurological: Denies: Numbness, Tingling, Focal weakness Psychiatric: Denies: Anxiety, Depression, Homicidal Ideations, Suicidal Ideations Hematologic/ Lymphatic: Denies: Easy Bruising, Easy Bleeding Patient Problems: Active and Suspected Problems (Last Reviewed 06/21/19 @ 14:[address] Josue Gregory MD) Severe sepsis (Acute) Pneumonia (Acute) Bronchitis (Acute) Objective: The patient's most recent lab work, culture data and imaging studies have all been personally reviewed. Strep and urine Legionella antigens were negative. Rapid influenza screen was negative. Blood and urine cultures are pending. Respiratory viral panel is pending. - Physical Exam Vitals/I&O's: Vital Signs Temp Pulse Resp BP Pulse Ox 97.2 F L 79 22 H 120/49 L 97 09/24/19 00:00 09/24/19 06:00 09/24/19 06:00 09/24/19 06:00 09/24/19 06:00 Oxygen Flow Rate (L/min) 2 Oxygen Delivery Method Bi-pap Weight: 137 lb 12.623 oz Body Mass Index (BMI) 24.2 Intake and Output for Last 24 Hours 09/22/19 09/23/19 09/24/19 23:59 23:59 23:59 Intake Total 2986.67 / 2986.67 Output Total 300 / 300 Balance 2686.67 / 2686.67 General: Alert, Cooperative, No apparent distress HEENT: Atraumatic, Normocephalic Oral: No Gingival or Mucosal Lesions/ Ulcerations Neck: Supple, No Nodes, Trachea Midline Lungs: Wheezes Cardiovascular: Regular rate, Regular Rhythm, Normal S1, Normal S2, No murmurs Abdomen: Bowel Sounds Present, Soft, Non Tender Extremities: No clubbing, No cyanosis, No edema Skin: No breakdown Musculoskeletal: No Tenderness to Palpation of Joints or Extremities Lymphatic: No Cervical, Supraclavicular, or Inguinal Adenopathy Neurological: Cranial nerves II-XII grossly intact, Neuro grossly intact Psych/Mental Status: Flat Affect Labs (Last 48 Hours) 09/23/19 09/23/19 09/23/19 13:58 13:58 13:58 WBC 8.2 RBC 3.90 L Hgb 11.8 L Hct 36.7 L MCV 94.1 MCH 30.3 MCHC 32.2 RDW Std Deviation 43.9 RDW Coeff of Phylicia 12.7 Plt Count 125 L MPV 11.6 Immature Gran % (Auto) 0.400 Neut % (Auto) 79.8 H Lymph % (Auto) 7.2 L [place] % (Auto) 12.4 H Eos % (Auto) 0.0 Baso % (Auto) 0.2 Absolute Neuts (auto) 6.5 Absolute Lymphs (auto) 0.59 L Nucleated RBC % 0 Differential Comment SCANNED PT 14.1 INR 1.1 APTT 31.1 Sodium 140 Potassium 4.2 Chloride 105 Carbon Dioxide 29.0 Anion Gap 6 BUN 28 H Creatinine 0.86 Estim Creat Clear Calc 53.23 Est GFR (MDRD) Af Amer 85 Est GFR (MDRD) Non-Af 70 BUN/Creatinine Ratio 32.7 H Glucose 109 H Lactic Acid Calcium 9.3 Total Bilirubin 1.10 H AST 16 ALT 15 Alkaline Phosphatase 60 Total Protein 7.8 Albumin 3.2 Globulin 4.6 H Albumin/Globulin Ratio 0.7 L Urine Color Urine Clarity Urine pH Ur Specific [place] Urine Protein Urine Glucose (UA) Urine Ketones Urine Occult Blood Urine Nitrite Urine Bilirubin Urine Urobilinogen Ur Leukocyte Esterase Urine RBC Urine WBC Ur Squamous Epith Cells Urine Bacteria Urine Mucus 09/23/19 09/23/19 09/23/19 13:58 14:39 18:20 WBC RBC Hgb Hct MCV MCH MCHC RDW Std Deviation RDW Coeff of Phylicia Plt Count MPV Immature Gran % (Auto) Neut % (Auto) Lymph % (Auto) [place] % (Auto) Eos % (Auto) Baso % (Auto) Absolute Neuts (auto) Absolute Lymphs (auto) Nucleated RBC % Differential Comment PT INR APTT Sodium Potassium Chloride Carbon Dioxide Anion Gap BUN Creatinine Estim Creat Clear Calc Est GFR (MDRD) Af Amer Est GFR (MDRD) Non-Af BUN/Creatinine Ratio Glucose Lactic Acid 2.2 H* 1.3 Calcium Total Bilirubin AST ALT Alkaline Phosphatase Total Protein Albumin Globulin Albumin/Globulin Ratio Urine Color Yellow Urine Clarity Clear Urine pH 5.0 Ur Specific [place] 1.025 Urine Protein 100 H Urine Glucose (UA) Normal Urine Ketones 150 H Urine Occult Blood 50 H Urine Nitrite Negative Urine Bilirubin 1 H Urine Urobilinogen 1 H Ur Leukocyte Esterase 25 H Urine RBC 0-5 SEEN Urine WBC 0-5 SEEN Ur Squamous Epith Cells 0-5 SEEN Urine Bacteria 0 SEEN Urine Mucus 0 SEEN 09/24/19 09/24/19 05:35 05:35 WBC 5.4 RBC 3.07 L Hgb 9.2 L Hct 29.2 L MCV 95.1 MCH 30.0 MCHC 31.5 L RDW Std Deviation 44.6 H RDW Coeff of Phylicia 13.0 Plt Count 107 L MPV 12.4 H Immature Gran % (Auto) 0.400 Neut % (Auto) 87.1 H Lymph % (Auto) 7.9 L [place] % (Auto) 4.6 Eos % (Auto) 0.0 Baso % (Auto) 0.0 Absolute Neuts (auto) 4.7 Absolute Lymphs (auto) 0.43 L Nucleated RBC % 0 Differential Comment PT INR APTT Sodium Pending Potassium Pending Chloride Pending Carbon Dioxide Pending Anion Gap Pending BUN Pending Creatinine Pending Estim Creat Clear Calc Est GFR (MDRD) Af Amer Pending Est GFR (MDRD) Non-Af Pending BUN/Creatinine Ratio Pending Glucose Pending Lactic Acid Calcium Pending Total Bilirubin AST ALT Alkaline Phosphatase Total Protein Albumin Globulin Albumin/Globulin Ratio Urine Color Urine Clarity Urine pH Ur Specific [place] Urine Protein Urine Glucose (UA) Urine Ketones Urine Occult Blood Urine Nitrite Urine Bilirubin Urine Urobilinogen Ur Leukocyte Esterase Urine RBC Urine WBC Ur Squamous Epith Cells Urine Bacteria Urine Mucus Microbiology 09/23/19 14:39 Urine, Clean Catch Streptococcus pneumoniae Antigen (M - Final 09/23/19 14:39 Urine, Clean Catch Legionella Antigen - Final 09/23/19 16:00 Mucosa - Nasopharyngeal Influenza Types A,B Direct FA ([facility]) - Final Clinical Impression(s) from Imaging Studies Chest X-Ray 09/23/19 14:00 IMPRESSION: 1. No airspace consolidation or pleural effusion. Stable exam. 2. Similar fibrotic changes, since 2018. Electronically Signed: Dipak Orozco MD (Brooks) at 14:36 EST , Service support , Chest X-Ray 09/23/19 20:11 IMPRESSION: No active disease. Electronically Signed: Seth Blandon MD at 20:37 EST Tel , Service support , Current Medications Al Hydroxide/Mg Hydroxide (Mylanta Ii) 30 ml PO Q4H PRN PRN PRN Reason: INDIGESTION Albuterol Sulfate (Ventolin Aerosols) 2.5 mg INHALATION BID PRN PRN PRN Reason: SOB &/OR WHEEZING Albuterol/Ipratropium (Duoneb) 3 ml INHALATION Q4HWA.RT [facility] Last Admin: 09/23/19 20:34 Dose: 3 ml Documented by: Aspirin (Aspirin, Baby) 81 mg PO DAILY@0800 [facility] Bisacodyl (Dulcolax) 10 mg RECTAL DAILY PRN PRN PRN Reason: Constipation Carvedilol (Coreg) 6.25 mg PO BID [facility] Last Admin: 09/23/19 20:41 Dose: Not Given Documented by: Dextrose (D50w Syringe) 0 gm IV X1 PRN; Protocol PRN Reason: Hypoglycemia Divalproex Sodium (Depakote) 250 mg PO QHS [facility] Last Admin: 09/23/19 21:49 Dose: 250 mg Documented by: Divalproex Sodium (Depakote) 125 mg PO QHS [facility] Last Admin: 09/23/19 21:48 Dose: 125 mg Documented by: Enoxaparin Sodium (Lovenox) 40 mg SC DAILY [facility] Glucagon () 1 mg IM .X1 PRN PRN Reason: Hypoglycemia Guaifenesin (Robitussin) 10 ml PO Q4H PRN PRN PRN Reason: COUGH Vancomycin IV Pharmacy to Dose (1 ea/ Sodium Chloride) 500 mls @ 250 mls/hr IV X1 PRN; Protocol PRN Reason: Rx to Dose Piperacillin Sod/Tazobactam (Sod 3.375 gm/ Sodium Chloride) 50 mls @ 12.5 mls/hr IV Q8 [facility] Last Admin: 09/23/19 21:49 Dose: 12.5 mls/hr Documented by: Vancomycin HCl () 500 mg in 100 mls @ 100 mls/hr IV Q12H [facility] Last Admin: 09/24/19 05:31 Dose: 100 mls/hr Documented by: Magnesium Hydroxide (Milk Of Magnesia) 30 ml PO DAILY PRN PRN PRN Reason: Constipation Methylprednisolone (Solu-Medrol) 40 mg IV Q8 [facility] Last Admin: 09/24/19 05:31 Dose: 40 mg Documented by: Sodium Biphosphate/Sodium Phosphate (Fleet Enema) 1 bottle RECTAL DAILY PRN PRN PRN Reason: Constipation Sodium Chloride () 10 - 40 ml IV UD PRN PRN Reason: SALINE FLUSH Assessment/Plan Active and Suspected Problems (Last Reviewed 06/21/19 @ 14:[address] Josue lozano MD) Severe sepsis (Acute) Pneumonia (Acute) Bronchitis (Acute) RECOMMENDATIONS: 1. Okay to de-escalate antibiotics to Unasyn, given lack of infiltrate noted on chest x-ray. 2. Continue BiPAP therapy with naps and nightly. 3. Encourage incentive spirometer use and mobilize patient as tolerated. 4. Continue bronchodilators and steroids for now. 5. Obtain speech therapy evaluation, given history of dysphagia. 6. The patient is medically stable for transfer out of the intensive care unit. IMPRESSIONS: 1. Acute hypoxemic respiratory failure Unclear precipitating etiology. The patient's plain film chest x-ray did not reveal evidence of a focal infiltrate. However, I cannot discount the possibility of an upper respiratory viral infection versus tracheobronchitis. The patient does apparently have a history of dysphasia. Therefore, we will plan to obtain speech therapy evaluation today. I did recommend that we de- escalate her antibiotics to Unasyn. She will be continued on bronchodilators and steroids. As of this morning, the patient was able to be weaned to room air. I would recommend that we continue her on BiPAP therapy with naps and nightly. 2. Personal history of pulmonary sarcoidosis/traumatic brain injury/unspecified seizure disorder/history of CVA Complicates care, management, recovery and prognosis. Continue home medications as indicated. CODE STATUS verified to be DNR CCA without intubation. This note was generated with [employer] dictation software. It may contain incorrect words, spelling, and punctuation that were not noted in checking the note before signing. Code Visit Inpatient E&M: 51216 Init Hosp L3
[2019-09-24 06:37] LABS: Anion Gap 4 (5-15); BUN 21 mg/dL (7-18); BUN/Creat Ratio 33.8 RATIO (10-20); Calcium,Total 8.4 mg/dL (8.5-10.1); Chloride 112 mmol/L (98-107); Creatinine, Serum 0.62 mg/dL (0.55-1.02); EST Glomerular Filtration Rate 102 mL/min (>60); Est Glom Filt Rate - Afr Amer 124 mL/min (>60); Estimated Creatinine Clearance 45.78 ml/min; Glucose 103 mg/dL (74-106); Potassium 3.9 mmol/L (3.5-5.1); Sodium Level 145 mmol/L (136-145)
[2019-09-24 06:57] LABS: Differential Comment SCANNED
[2019-09-24] MEDS: Ipratropium/Albuterol Sulfate 3 ML AMPUL.NEB INHALATION ×5 (07:10→23:00)
[2019-09-24] MEDS: guaiFENesin 10 ML UDC (200MG/10ML) PO ×2 (08:16→21:53)
[2019-09-24] MEDS: Aspirin 81 MG TAB.CHEW PO (08:16)
[2019-09-24 10:08] LABS: Iron 18 ug/dL (50-170); Iron Binding Capacity,Total 191 ug/dL (250-450); PERCENT IRON SATURATION 9.4 % (15.0-55.0)
[2019-09-24 10:33] LABS: M R Staph aureus DNA By PCR Negative (Negative); Probe Check PASS; Specimen Processing Control PASS
[2019-09-24] MEDS: Carvedilol 6.25 MG Tablet PO ×2 (11:33→22:10)
[2019-09-24] MEDS: Enoxaparin 40 MG/0.4 ML Syringe SC (11:33)
--- NOTE | 2019-09-24 12:58 | PCM.PN.HOSP ---
Patient Problems: Active and Suspected Problems (Last Reviewed 06/21/19 @ 14:[address] Josue Gregory MD) Severe sepsis (Acute) Pneumonia (Acute) Bronchitis (Acute) Reason for Visit: SOB Subjective: Pt on bipap at rest. C/o feeling tired. Denies SOB. Ongoing nonproductive cough. No fever/chills. No LE edema. She is lethargic. Vitals/I&O's: Vital Signs Temp Pulse Resp BP Pulse Ox 97.7 F L 85 23 H 123/71 H 90 09/24/19 12:00 09/24/19 12:00 09/24/19 12:00 09/24/19 12:00 09/24/19 12:00 Oxygen Flow Rate (L/min) 2 Oxygen Delivery Method Room Air Weight: 137 lb 12.623 oz Body Mass Index (BMI) 24.2 Intake and Output for Last 24 Hours 09/22/19 09/23/19 09/24/19 23:59 23:59 23:59 Intake Total 2986.67 / 2986.67 350 / 350 Output Total 300 / 300 Balance 2686.67 / 2686.67 350 / 350 General: Alert, Oriented x3, Cooperative, Lethargic HEENT: Atraumatic, PERRLA, EOMI, Normocephalic Neck: Supple, No JVD, Negative Carotid Bruits Lungs: Normal air movement, Rales, - - course Cardiovascular: Regular rate, No murmurs Abdomen: Bowel Sounds Present, Soft, Non Tender Extremities: No edema, Capillary Refill Less than 3 Seconds Skin: No rashes, No breakdown Musculoskeletal: No Tenderness to Palpation of Joints or Extremities Neurological: Cranial nerves II-XII grossly intact Psych/Mental Status: Normal Affect, Appropriate Microbiology Past 72 Hours 09/23/19 16:00 Mucosa - Nasopharyngeal Respiratory Panel (PCR) - Final Rhinovirus 09/23/19 14:39 Urine, Clean Catch Streptococcus pneumoniae Antigen (M - Final 09/23/19 14:39 Urine, Clean Catch Legionella Antigen - Final 09/23/19 16:00 Mucosa - Nasopharyngeal Influenza Types A,B Direct FA ([facility]) - Final Laboratory Results 09/23/19 13:58: WBC 8.2, RBC 3.90 L, Hgb 11.8 L, Hct 36.7 L, MCV 94.1, MCH 30.3, MCHC 32.2, RDW Std Deviation 43.9, RDW Coeff of Phylicia 12.7, Plt Count 125 L, MPV 11.6, Immature Gran % (Auto) 0.400, Neut % (Auto) 79.8 H, Lymph % (Auto) 7.2 L, [place] % (Auto) 12.4 H, Eos % (Auto) 0.0, Baso % (Auto) 0.2, Absolute Neuts (auto) 6.5, Absolute Lymphs (auto) 0.59 L, Nucleated RBC % 0, Differential Comment SCANNED 09/23/19 13:58: PT 14.1, INR 1.1, APTT 31.1 09/23/19 13:58: Sodium 140, Potassium 4.2, Chloride 105, Carbon Dioxide 29.0, Anion Gap 6, BUN 28 H, Creatinine 0.86, Estim Creat Clear Calc 53.23, Est GFR (MDRD) Af Amer 85, Est GFR (MDRD) Non-Af 70, BUN/Creatinine Ratio 32.7 H, Glucose 109 H, Calcium 9.3, Total Bilirubin 1.10 H, AST 16, ALT 15, Alkaline Phosphatase 60, Total Protein 7.8, Albumin 3.2, Globulin 4.6 H, Albumin/Globulin Ratio 0.7 L 09/23/19 13:58: Lactic Acid 2.2 H* 09/23/19 14:39: Urine Color Yellow, Urine Clarity Clear, Urine pH 5.0, Ur Specific [place] 1.025, Urine Protein 100 H, Urine Glucose (UA) Normal, Urine Ketones 150 H, Urine Occult Blood 50 H, Urine Nitrite Negative, Urine Bilirubin 1 H, Urine Urobilinogen 1 H, Ur Leukocyte Esterase 25 H, Urine RBC 0-5 SEEN, Urine WBC 0-5 SEEN, Ur Squamous Epith Cells 0-5 SEEN, Urine Bacteria 0 SEEN, Urine Mucus 0 SEEN 09/23/19 18:20: Lactic Acid 1.3 09/24/19 05:35: Sodium 145, Potassium 3.9, Chloride 112 H, Carbon Dioxide 29.0, Anion Gap 4 L, BUN 21 H, Creatinine 0.62, Estim Creat Clear Calc 45.78, Est GFR (MDRD) Af Amer 124, Est GFR (MDRD) Non-Af 102, BUN/Creatinine Ratio 33.8 H, Glucose 103, Calcium 8.4 L 09/24/19 05:35: WBC 5.4, RBC 3.07 L, Hgb 9.2 L, Hct 29.2 L, MCV 95.1, MCH 30.0, MCHC 31.5 L, RDW Std Deviation 44.6 H, RDW Coeff of Phylicia 13.0, Plt Count 107 L, MPV 12.4 H, Immature Gran % (Auto) 0.400, Neut % (Auto) 87.1 H, Lymph % (Auto) 7.9 L, [place] % (Auto) 4.6, Eos % (Auto) 0.0, Baso % (Auto) 0.0, Absolute Neuts (auto) 4.7, Absolute Lymphs (auto) 0.43 L, Nucleated RBC % 0, Differential Comment SCANNED 09/24/19 05:35: Iron 18 L, TIBC 191 L, Iron Saturation 9.4 L 09/24/19 07:50: MRSA (PCR) Negative Current Medications Al Hydroxide/Mg Hydroxide (Mylanta Ii) 30 ml PO Q4H PRN PRN PRN Reason: INDIGESTION Albuterol Sulfate (Ventolin Aerosols) 2.5 mg INHALATION BID PRN PRN PRN Reason: SOB &/OR WHEEZING Albuterol/Ipratropium (Duoneb) 3 ml INHALATION Q4HWA.RT [facility] Last Admin: 09/24/19 11:09 Dose: 3 ml Documented by: Aspirin (Aspirin, Baby) 81 mg PO DAILY@0800 [facility] Last Admin: 09/24/19 08:16 Dose: 81 mg Documented by: Bisacodyl (Dulcolax) 10 mg RECTAL DAILY PRN PRN PRN Reason: Constipation Carvedilol (Coreg) 6.25 mg PO BID [facility] Last Admin: 09/24/19 11:33 Dose: 6.25 mg Documented by: Dextrose (D50w Syringe) 0 gm IV X1 PRN; Protocol PRN Reason: Hypoglycemia Divalproex Sodium (Depakote) 250 mg PO QHS [facility] Last Admin: 09/23/19 21:49 Dose: 250 mg Documented by: Divalproex Sodium (Depakote) 125 mg PO QHS [facility] Last Admin: 09/23/19 21:48 Dose: 125 mg Documented by: Enoxaparin Sodium (Lovenox) 40 mg SC DAILY [facility] Last Admin: 09/24/19 11:33 Dose: 40 mg Documented by: Glucagon () 1 mg IM .X1 PRN PRN Reason: Hypoglycemia Guaifenesin (Robitussin) 10 ml PO Q4H PRN PRN PRN Reason: COUGH Last Admin: 09/24/19 08:16 Dose: 10 ml Documented by: Ampicillin Sodium/Sulbactam (Sodium 3 gm/ Sodium Chloride) 112 mls @ 150 mls/hr IV Q8 [facility] Magnesium Hydroxide (Milk Of Magnesia) 30 ml PO DAILY PRN PRN PRN Reason: Constipation Methylprednisolone (Solu-Medrol) 40 mg IV Q8 [facility] Last Admin: 09/24/19 05:31 Dose: 40 mg Documented by: Sodium Biphosphate/Sodium Phosphate (Fleet Enema) 1 bottle RECTAL DAILY PRN PRN PRN Reason: Constipation Sodium Chloride () 10 - 40 ml IV UD PRN PRN Reason: SALINE FLUSH STROKE Vital Signs/Narrative: Vital Signs Temp Pulse Resp BP BP Pulse Ox 09/24/19 12:00 97.7 F L 85 23 H 123/71 H 90 09/24/19 11:10 89 16 09/24/19 11:00 85 20 H 126/111 H 95 09/24/19 10:00 79 21 H 134/70 H 96 09/24/19 09:00 87 21 H 125/65 H 95 Medical Necessity - Tobacco Use Smoking Status: Never smoker Tobacco Use: Non-smoker Assessment/Plan All Active Problems (Last Reviewed 06/21/19 @ 14:[address] Josue Gregory MD) Severe sepsis (Acute) Pneumonia (Acute) Bronchitis (Acute) 1. Acute severe sepsis 2/2 acute bronchitis - + LA, afebrile, no leukcoytosis, tachypnea, pulse >90, increased t bili. Abx changed to unasyn with hx of dysphagia. + Rhinovirus. failed levaquin/prednisone. panculture. Continue IV fluids. UA neg. Continue IS/PEP/mucinex. Continue Bipap with naps/qhs. Hx dysphagia - Speech evals. 2. Sarcoidosis with pulmonary manifestations - pt of dr. Diaz. Continue IV solumedrol. Encourage IS/PEP therapy. 3. TBI with behavioral disturbance - continue depakote. 6 years prior had asthma exacerbation and stroke, ativan withdrawal seizures, and cardiac arrest requiring 8 minutes of CPR contributing to TBI. 4. Thrombocytopenia - trending down somewhat. recheck. if continues to drop may need to DC lovenox 5. hx CVA - on aspirin, no statin. 6. Hx asthma - continue prn albuterol, duonebs DVT ppx: lovenox DC planning: return to [facility] when appropriate. This patient was seen by Rhett Maldonado PA-C under the supervision of Dr. Perez.
[2019-09-24] MEDS: 0.9% Saline Lock 10 ML Syringe IV ×2 (14:23→21:56)
[2019-09-24 16:56] LABS: Ferritin 135 ng/mL (8-252)
--- NOTE | 2019-09-24 17:07 | CT_ITS ---
STUDY: CT BRAIN WITHOUT CONTRAST REASON FOR EXAM: Female, 64 years old patient with acute mental status change. History of traumatic brain injury with progressive decline in last six months. History of acute hypoxic injury RADIATION DOSAGE (If Supplied By Facility): CTDIvol = ( 44.99 ) mGy, DLP = ( 745.49 ) mGycm TECHNIQUE: Transaxial CT imaging of the brain was performed without administration of intravenous contrast material. Multiplanar reformations are submitted for interpretation. Individualized dose optimization techniques were used for this CT. COMPARISON: CT of the head dated May 02, 2015. FINDINGS: Normal soft tissue structures. Normal calvarium. There is mild cerebral atrophy with widening of the extra-axial spaces and moderate ventricular dilatation. There are areas of decreased attenuation within the white matter tracts of the supratentorial brain, consistent with microvascular disease changes. Normal basal ganglia and thalami. Normal brainstem. There is mild cerebellar atrophy. There is no intracranial hemorrhage. There are no findings of an acute ischemic infarction. There is a left maxillary mucous retention cyst. CT/Brain/Head without Contrast IMPRESSION: 1. Chronic involutional changes of the brain. 2. No CT evidence of acute intracranial hemorrhage. 3. Left maxillary sinus disease. Electronically Signed: Jocy Mejia MD at 19:20 EST , Service support ,
[2019-09-24 17:28] LABS: Immature Platelet Fraction 6.7 % (1.0-7.9); Platelet Count 120 K/mm3 (150-450); RET-HE 28.2 pg (30-35); Reticulocyte Count 1.32 % (0.5-1.5)
[2019-09-24 17:51] LABS: T4 Free Direct 0.93 ng/dL (0.76-1.46); Thyroid Stim Hormone (TSH) 0.76 uIU/mL (0.358-3.74)
[2019-09-24 17:53] LABS: Valproic Acid (Depakene) Level 39 ug/mL (50-100)
[2019-09-24] MEDS: QUEtiapine 25 MG Tablet PO (22:10)
[2019-09-24] MEDS: Divalproex Sodium 125 MG Tablet PO (22:10)
[2019-09-24] MEDS: Divalproex Sodium 250 MG Tablet PO (22:10)
--- NOTE | 2019-09-24 23:40 | NURSING ---
pt called out to speak with this RN and states she cannot tolerate wearing the bipap states it's drying me out. educated and discussed with pt the purpose and importance of it with her current respiratory findings however pt is refusing to wear bipap at this time. notified RT Celio and placed pt on 2 L NC per his request.
[2019-09-25] VITALS (17 sets, daily range): BP systolic 130–154; BP diastolic 59–80; PULSE 58–88; RESP 12–21; TEMP 36.3–36.6; O2SAT 92–100
[2019-09-25] MEDS: 0.9% Saline Lock 10 ML Syringe IV ×2 (05:28→22:01)
[2019-09-25 06:10] LABS: Absolute Lymphocyte Count 0.56 X10^3/uL (0.83-4.51); Absolute Neutrophil Count 4.8 X10^3/uL (2.0-7.7); Basophil# 0.01 X10^3/uL; Basophil% 0.2 % (0-1); Hematocrit 32.1 % (37-47); Hemoglobin 10.2 g/dL (12.0-15.0); Lymphocyte # 0.56 X10^3/ul (4.0); Mean Corp Hgb Conc 31.8 g/dL (32-36); Mean Corpuscular Hgb 30.4 pg (27.0-32.0); Mean Corpuscular Volume 95.5 fL (81-99); Mean Platelet Vol. 11.6 fl (6.2-12.0); Monocyte% 3.6 % (0-10); NRBC Flagged by Analyzer 0 % (0-5); Neutrophil # 4.79 X10^3/uL (2.7-7.7); Neutrophil % 85.1 % (47-70); POSITIVE DIFFERENTIAL YES; Platelet Count 128 K/mm3 (150-450); RBC Distribution Width CV 12.7 % (11.6-14.6); RBC Distribution Width SD 43.9 fl (35.1-43.9); Red Blood Count 3.36 M/mm3 (4.2-5.4); White Blood Count 5.6 K/mm3 (4.4-11.0)
[2019-09-25 06:14] LABS: Differential Indicated SCAN CRITERIA MET
[2019-09-25 06:29] LABS: Anion Gap 4 (5-15); BUN 26 mg/dL (7-18); BUN/Creat Ratio 40.6 RATIO (10-20); Calcium,Total 8.8 mg/dL (8.5-10.1); Chloride 111 mmol/L (98-107); Creatinine, Serum 0.64 mg/dL (0.55-1.02); EST Glomerular Filtration Rate 99 mL/min (>60); Est Glom Filt Rate - Afr Amer 119 mL/min (>60); Estimated Creatinine Clearance 45.78 ml/min; Glucose 127 mg/dL (74-106); Potassium 3.9 mmol/L (3.5-5.1); Sodium Level 146 mmol/L (136-145)
[2019-09-25] MEDS: Ipratropium/Albuterol Sulfate 3 ML AMPUL.NEB INHALATION ×4 (06:53→19:27)
[2019-09-25 07:05] LABS: Differential Comment SCANNED
--- NOTE | 2019-09-25 09:41 | CASEMGMT ---
Patient came to [facility] from [facility]. faxed them updates. Hattie MARIO MSW
[2019-09-25] MEDS: Carvedilol 6.25 MG Tablet PO (09:56)
[2019-09-25] MEDS: Aspirin 81 MG TAB.CHEW PO (09:56)
[2019-09-25] MEDS: Enoxaparin 40 MG/0.4 ML Syringe SC (09:56)
--- NOTE | 2019-09-25 11:17 | CASEMGMT ---
KATHIE spoke with patient's and he said patient will go back to [facility]. He said he is not comfortable with her being discharged today. KATHIE told him KATHIE can see if one of the physicians can talk with him. KATHIE notified RN BIBI who notified Rhett VERDUGO. Patient is not normally on bi-pap. KATHIE called [facility] and spoke with Brittani, letting her know patient may be returning today and she will need a bi-pap for naps and at night. KATHIE faxed settings to [facility]. Hattie MARIO MSW
--- NOTE | 2019-09-25 12:57 | PN_ITS ---
Patient Problems: Active and Suspected Problems (Last Reviewed 06/21/19 @ 14:[address] Josue Gregory MD) Severe sepsis (Acute) Pneumonia (Acute) Bronchitis (Acute) Subjective: The patient was seen and examined at the bedside this morning. Events from the last 24 hours have been reviewed. The patient is currently afebrile, hemodyn amically stable and maintaining appropriate oxygen saturations on 2 L/min via nasal cannula. The patient remained short of breath. However, she is now fully engaging in utilizing her incentive spirometer. In addition, the patient refused BiPAP last evening. Objective: The patient's most recent lab work, culture data and imaging studies have all been personally reviewed. Respiratory viral panel was positive for rhinovirus. - Physical Exam Vitals/I&O's: Vital Signs Temp Pulse Resp BP Pulse Ox 97.8 F 58 L 16 154/80 H 97 09/25/19 09:20 09/25/19 12:13 09/25/19 10:40 09/25/19 09:20 09/25/19 10:00 Oxygen Flow Rate (L/min) 2 Oxygen Delivery Method Nasal Cannula Weight: 138 lb 3.677 oz Body Mass Index (BMI) 24.2 Intake and Output for Last 24 Hours 09/23/19 09/24/19 09/25/19 23:59 23:59 23:59 Intake Total 2986.67 / 2986.67 574 / 624 262 / 262 Output Total 300 / 300 100 / 100 Balance 2686.67 / 2686.67 474 / 524 262 / 262 General: Alert, Cooperative, No apparent distress HEENT: Atraumatic, Normocephalic Oral: No Gingival or Mucosal Lesions/ Ulcerations Neck: Supple, No Nodes, Trachea Midline Lungs: Diminished, Wheezes Cardiovascular: Regular rate, Regular Rhythm, Normal S1, Normal S2, No murmurs Abdomen: Bowel Sounds Present, Soft, Non Tender Extremities: No clubbing, No cyanosis, No edema Skin: No breakdown Musculoskeletal: No Tenderness to Palpation of Joints or Extremities Lymphatic: No Cervical, Supraclavicular, or Inguinal Adenopathy Neurological: Cranial nerves II-XII grossly intact, Neuro grossly intact Psych/Mental Status: Normal Affect, Appropriate Labs (Last 48 Hours) 09/23/19 09/23/19 09/23/19 13:58 13:58 13:58 WBC 8.2 RBC 3.90 L Hgb 11.8 L Hct 36.7 L MCV 94.1 MCH 30.3 MCHC 32.2 RDW Std Deviation 43.9 RDW Coeff of Phylicia 12.7 Plt Count 125 L MPV 11.6 Immature Gran % (Auto) 0.400 Neut % (Auto) 79.8 H Lymph % (Auto) 7.2 L Cro[place] % (Auto) 12.4 H Eos % (Auto) 0.0 Baso % (Auto) 0.2 Absolute Neuts (auto) 6.5 Absolute Lymphs (auto) 0.59 L Nucleated RBC % 0 Differential Comment SCANNED Immature Plt Fraction Retic Count Immature Retic Fraction Retic Hgb Equivalent PT 14.1 INR 1.1 APTT 31.1 Sodium 140 Potassium 4.2 Chloride 105 Carbon Dioxide 29.0 Anion Gap 6 BUN 28 H Creatinine 0.86 Estim Creat Clear Calc 53.23 Est GFR (MDRD) Af Amer 85 Est GFR (MDRD) Non-Af 70 BUN/Creatinine Ratio 32.7 H Glucose 109 H Lactic Acid Calcium 9.3 Iron TIBC Iron Saturation Ferritin Total Bilirubin 1.10 H AST 16 ALT 15 Alkaline Phosphatase 60 Total Protein 7.8 Albumin 3.2 Globulin 4.6 H Albumin/Globulin Ratio 0.7 L Vitamin B12 Vitamin D 25-Hydroxy TSH Free T4 Urine Color Urine Clarity Urine pH Ur Specific [place] Urine Protein Urine Glucose (UA) Urine Ketones Urine Occult Blood Urine Nitrite Urine Bilirubin Urine Urobilinogen Ur Leukocyte Esterase Urine RBC Urine WBC Ur Squamous Epith Cells Urine Bacteria Urine Mucus Valproic Acid RAAD Screen SMOOTH-1 Antibody SS-A/Ro IgG Antibody SS-B/La IgG Antibody Sm (Schneider) Antibody SALES AND PRODUCTION MANAGER Antibody Scl-70 Scleroderma Ab Double Strand DNA Ab Centromere B Antibody RPR MRSA (PCR) 09/23/19 09/23/19 09/23/19 13:58 14:39 18:20 WBC RBC Hgb Hct MCV MCH MCHC RDW Std Deviation RDW Coeff of Phylicia Plt Count MPV Immature Gran % (Auto) Neut % (Auto) Lymph % (Auto) [place] % (Auto) Eos % (Auto) Baso % (Auto) Absolute Neuts (auto) Absolute Lymphs (auto) Nucleated RBC % Differential Comment Immature Plt Fraction Retic Count Immature Retic Fraction Retic Hgb Equivalent PT INR APTT Sodium Potassium Chloride Carbon Dioxide Anion Gap BUN Creatinine Estim Creat Clear Calc Est GFR (MDRD) Af Amer Est GFR (MDRD) Non-Af BUN/Creatinine Ratio Glucose Lactic Acid 2.2 H* 1.3 Calcium Iron TIBC Iron Saturation Ferritin Total Bilirubin AST ALT Alkaline Phosphatase Total Protein Albumin Globulin Albumin/Globulin Ratio Vitamin B12 Vitamin D 25-Hydroxy TSH Free T4 Urine Color Yellow Urine Clarity Clear Urine pH 5.0 Ur Specific [place] 1.025 Urine Protein 100 H Urine Glucose (UA) Normal Urine Ketones 150 H Urine Occult Blood 50 H Urine Nitrite Negative Urine Bilirubin 1 H Urine Urobilinogen 1 H Ur Leukocyte Esterase 25 H Urine RBC 0-5 SEEN Urine WBC 0-5 SEEN Ur Squamous Epith Cells 0-5 SEEN Urine Bacteria 0 SEEN Urine Mucus 0 SEEN Valproic Acid RAAD Screen SMOOTH-1 Antibody SS-A/Ro IgG Antibody SS-B/La IgG Antibody Sm (Schneider) Antibody SALES AND PRODUCTION MANAGER Antibody Scl-70 Scleroderma Ab Double Strand DNA Ab Centromere B Antibody RPR MRSA (PCR) 09/24/19 09/24/19 09/24/19 05:35 05:35 05:35 WBC 5.4 RBC 3.07 L Hgb 9.2 L Hct 29.2 L MCV 95.1 MCH 30.0 MCHC 31.5 L RDW Std Deviation 44.6 H RDW Coeff of Phylicia 13.0 Plt Count 107 L MPV 12.4 H Immature Gran % (Auto) 0.400 Neut % (Auto) 87.1 H Lymph % (Auto) 7.9 L [place] % (Auto) 4.6 Eos % (Auto) 0.0 Baso % (Auto) 0.0 Absolute Neuts (auto) 4.7 Absolute Lymphs (auto) 0.43 L Nucleated RBC % 0 Differential Comment SCANNED Immature Plt Fraction Retic Count Immature Retic Fraction Retic Hgb Equivalent PT INR APTT Sodium 145 Potassium 3.9 Chloride 112 H Carbon Dioxide 29.0 Anion Gap 4 L BUN 21 H Creatinine 0.62 Estim Creat Clear Calc 45.78 Est GFR (MDRD) Af Amer 124 Est GFR (MDRD) Non-Af 102 BUN/Creatinine Ratio 33.8 H Glucose 103 Lactic Acid Calcium 8.4 L Iron 18 L TIBC 191 L Iron Saturation 9.4 L Ferritin Total Bilirubin AST ALT Alkaline Phosphatase Total Protein Albumin Globulin Albumin/Globulin Ratio Vitamin B12 Vitamin D 25-Hydroxy TSH Free T4 Urine Color Urine Clarity Urine pH Ur Specific [place] Urine Protein Urine Glucose (UA) Urine Ketones Urine Occult Blood Urine Nitrite Urine Bilirubin Urine Urobilinogen Ur Leukocyte Esterase Urine RBC Urine WBC Ur Squamous Epith Cells Urine Bacteria Urine Mucus Valproic Acid RAAD Screen SMOOTH-1 Antibody SS-A/Ro IgG Antibody SS-B/La IgG Antibody Sm (Schneider) Antibody SALES AND PRODUCTION MANAGER Antibody Scl-70 Scleroderma Ab Double Strand DNA Ab Centromere B Antibody RPR MRSA (PCR) 09/24/19 09/24/19 09/24/19 05:35 07:50 17:15 WBC RBC Hgb Hct MCV MCH MCHC RDW Std Deviation RDW Coeff of Phylicia Plt Count MPV Immature Gran % (Auto) Neut % (Auto) Lymph % (Auto) [place] % (Auto) Eos % (Auto) Baso % (Auto) Absolute Neuts (auto) Absolute Lymphs (auto) Nucleated RBC % Differential Comment Immature Plt Fraction 6.7 Retic Count 1.32 Immature Retic Fraction 17.50 H Retic Hgb Equivalent 28.2 L PT INR APTT Sodium Potassium Chloride Carbon Dioxide Anion Gap BUN Creatinine Estim Creat Clear Calc Est GFR (MDRD) Af Amer Est GFR (MDRD) Non-Af BUN/Creatinine Ratio Glucose Lactic Acid Calcium Iron TIBC Iron Saturation Ferritin 135 Total Bilirubin AST ALT Alkaline Phosphatase Total Protein Albumin Globulin Albumin/Globulin Ratio Vitamin B12 Vitamin D 25-Hydroxy TSH Free T4 Urine Color Urine Clarity Urine pH Ur Specific [place] Urine Protein Urine Glucose (UA) Urine Ketones Urine Occult Blood Urine Nitrite Urine Bilirubin Urine Urobilinogen Ur Leukocyte Esterase Urine RBC Urine WBC Ur Squamous Epith Cells Urine Bacteria Urine Mucus Valproic Acid RAAD Screen SMOOTH-1 Antibody SS-A/Ro IgG Antibody SS-B/La IgG Antibody Sm (Schneider) Antibody SALES AND PRODUCTION MANAGER Antibody Scl-70 Scleroderma Ab Double Strand DNA Ab Centromere B Antibody RPR MRSA (PCR) Negative 09/24/19 09/24/19 09/24/19 17:15 17:15 17:15 WBC RBC Hgb Hct MCV MCH MCHC RDW Std Deviation RDW Coeff of Phylicia Plt Count MPV Immature Gran % (Auto) Neut % (Auto) Lymph % (Auto) [place] % (Auto) Eos % (Auto) Baso % (Auto) Absolute Neuts (auto) Absolute Lymphs (auto) Nucleated RBC % Differential Comment Immature Plt Fraction Retic Count Immature Retic Fraction Retic Hgb Equivalent PT INR APTT Sodium Potassium Chloride Carbon Dioxide Anion Gap BUN Creatinine Estim Creat Clear Calc Est GFR (MDRD) Af Amer Est GFR (MDRD) Non-Af BUN/Creatinine Ratio Glucose Lactic Acid Calcium Iron TIBC Iron Saturation Ferritin Total Bilirubin AST ALT Alkaline Phosphatase Total Protein Albumin Globulin Albumin/Globulin Ratio Vitamin B12 Pending Vitamin D 25-Hydroxy Pending TSH 0.76 Free T4 0.93 Urine Color Urine Clarity Urine pH Ur Specific [place] Urine Protein Urine Glucose (UA) Urine Ketones Urine Occult Blood Urine Nitrite Urine Bilirubin Urine Urobilinogen Ur Leukocyte Esterase Urine RBC Urine WBC Ur Squamous Epith Cells Urine Bacteria Urine Mucus Valproic Acid RAAD Screen SMOOTH-1 Antibody SS-A/Ro IgG Antibody SS-B/La IgG Antibody Sm (Schneider) Antibody SALES AND PRODUCTION MANAGER Antibody Scl-70 Scleroderma Ab Double Strand DNA Ab Centromere B Antibody RPR Pending MRSA (PCR) 09/24/19 09/24/19 09/25/19 17:15 17:15 05:47 WBC 5.6 RBC 3.36 L Hgb 10.2 L Hct 32.1 L MCV 95.5 MCH 30.4 MCHC 31.8 L RDW Std Deviation 43.9 RDW Coeff of Phylicia 12.7 Plt Count 128 L MPV 11.6 Immature Gran % (Auto) 1.100 H Neut % (Auto) 85.1 H Lymph % (Auto) 10.0 L [place] % (Auto) 3.6 Eos % (Auto) 0.0 Baso % (Auto) 0.2 Absolute Neuts (auto) 4.8 Absolute Lymphs (auto) 0.56 L Nucleated RBC % 0 Differential Comment SCANNED Immature Plt Fraction Retic Count Immature Retic Fraction Retic Hgb Equivalent PT INR APTT Sodium Potassium Chloride Carbon Dioxide Anion Gap BUN Creatinine Estim Creat Clear Calc Est GFR (MDRD) Af Amer Est GFR (MDRD) Non-Af BUN/Creatinine Ratio Glucose Lactic Acid Calcium Iron TIBC Iron Saturation Ferritin Total Bilirubin AST ALT Alkaline Phosphatase Total Protein Albumin Globulin Albumin/Globulin Ratio Vitamin B12 Vitamin D 25-Hydroxy TSH Free T4 Urine Color Urine Clarity Urine pH Ur Specific [place] Urine Protein Urine Glucose (UA) Urine Ketones Urine Occult Blood Urine Nitrite Urine Bilirubin Urine Urobilinogen Ur Leukocyte Esterase Urine RBC Urine WBC Ur Squamous Epith Cells Urine Bacteria Urine Mucus Valproic Acid 39 L RAAD Screen Pending SMOOTH-1 Antibody Pending SS-A/Ro IgG Antibody Pending SS-B/La IgG Antibody Pending Sm (Schneider) Antibody Pending SALES AND PRODUCTION MANAGER Antibody Pending Scl-70 Scleroderma Ab Pending Double Strand DNA Ab Pending Centromere B Antibody Pending RPR MRSA (PCR) 09/25/19 05:47 WBC RBC Hgb Hct MCV MCH MCHC RDW Std Deviation RDW Coeff of Phylicia Plt Count MPV Immature Gran % (Auto) Neut % (Auto) Lymph % (Auto) [place] % (Auto) Eos % (Auto) Baso % (Auto) Absolute Neuts (auto) Absolute Lymphs (auto) Nucleated RBC % Differential Comment Immature Plt Fraction Retic Count Immature Retic Fraction Retic Hgb Equivalent PT INR APTT Sodium 146 H Potassium 3.9 Chloride 111 H Carbon Dioxide 31.0 Anion Gap 4 L BUN 26 H Creatinine 0.64 Estim Creat Clear Calc 45.78 Est GFR (MDRD) Af Amer 119 Est GFR (MDRD) Non-Af 99 BUN/Creatinine Ratio 40.6 H Glucose 127 H Lactic Acid Calcium 8.8 Iron TIBC Iron Saturation Ferritin Total Bilirubin AST ALT Alkaline Phosphatase Total Protein Albumin Globulin Albumin/Globulin Ratio Vitamin B12 Vitamin D 25-Hydroxy TSH Free T4 Urine Color Urine Clarity Urine pH Ur Specific [place] Urine Protein Urine Glucose (UA) Urine Ketones Urine Occult Blood Urine Nitrite Urine Bilirubin Urine Urobilinogen Ur Leukocyte Esterase Urine RBC Urine WBC Ur Squamous Epith Cells Urine Bacteria Urine Mucus Valproic Acid RAAD Screen SMOOTH-1 Antibody SS-A/Ro IgG Antibody SS-B/La IgG Antibody Sm (Schneider) Antibody SALES AND PRODUCTION MANAGER Antibody Scl-70 Scleroderma Ab Double Strand DNA Ab Centromere B Antibody RPR MRSA (PCR) Microbiology 09/23/19 14:39 Urine, Clean Catch Urine Culture - Preliminary Culture exhibits no growth. 09/23/19 16:00 Mucosa - Nasopharyngeal Respiratory Panel (PCR) - Final Rhinovirus 09/23/19 14:39 Urine, Clean Catch Streptococcus pneumoniae Antigen (M - Final 09/23/19 14:39 Urine, Clean Catch Legionella Antigen - Final 09/23/19 16:00 Mucosa - Nasopharyngeal Influenza Types A,B Direct FA (SILVIA) - Final Clinical Impression(s) from Imaging Studies Chest X-Ray 09/23/19 14:00 IMPRESSION: 1. No airspace consolidation or pleural effusion. Stable exam. 2. Similar fibrotic changes, since 2018. Electronically Signed: Dipak Orozco MD ([place]) at 14:36 EST , Service support , Chest X-Ray 09/23/19 20:11 IMPRESSION: No active disease. Electronically Signed: Seth Blandon MD at 20:37 EST Tel , Service support , Brain CT 09/24/19 17:07 IMPRESSION: 1. Chronic involutional changes of the brain. 2. No CT evidence of acute intracranial hemorrhage. 3. Left maxillary sinus disease. Electronically Signed: Jocy Mejia MD at 19:20 EST , Service support , Current Medications Al Hydroxide/Mg Hydroxide (Mylanta Ii) 30 ml PO Q4H PRN PRN PRN Reason: INDIGESTION Albuterol Sulfate (Ventolin Aerosols) 2.5 mg INHALATION BID PRN PRN PRN Reason: SOB &/OR WHEEZING Albuterol/Ipratropium (Duoneb) 3 ml INHALATION Q4HWA.RT [facility] Last Admin: 09/25/19 10:40 Dose: 3 ml Documented by: Aspirin (Aspirin, Baby) 81 mg PO DAILY@0800 [facility] Last Admin: 09/25/19 09:56 Dose: 81 mg Documented by: Bisacodyl (Dulcolax) 10 mg RECTAL DAILY PRN PRN PRN Reason: Constipation Carvedilol (Coreg) 6.25 mg PO BID [facility] Last Admin: 09/25/19 09:56 Dose: 6.25 mg Documented by: Dextrose (D50w Syringe) 0 gm IV X1 PRN; Protocol PRN Reason: Hypoglycemia Divalproex Sodium (Depakote) 250 mg PO QHS [facility] Last Admin: 09/24/19 22:10 Dose: 250 mg Documented by: Divalproex Sodium (Depakote) 125 mg PO QHS [facility] Last Admin: 09/24/19 22:10 Dose: 125 mg Documented by: Enoxaparin Sodium (Lovenox) 40 mg SC DAILY [facility] Last Admin: 09/25/19 09:56 Dose: 40 mg Documented by: Glucagon () 1 mg IM .X1 PRN PRN Reason: Hypoglycemia Guaifenesin (Robitussin) 10 ml PO Q4H PRN PRN PRN Reason: COUGH Last Admin: 09/24/19 21:53 Dose: 10 ml Documented by: Haloperidol Lactate (Haldol) 1 mg IV Q4H PRN PRN PRN Reason: SEVERE AGITATION Ampicillin Sodium/Sulbactam (Sodium 3 gm/ Sodium Chloride) 112 mls @ 150 mls/hr IV Q8 [facility] Last Infusion: 09/25/19 06:15 Dose: Infused Documented by: Magnesium Hydroxide (Milk Of Magnesia) 30 ml PO DAILY PRN PRN PRN Reason: Constipation Methylprednisolone (Solu-Medrol) 40 mg IV Q8 [facility] Last Admin: 09/25/19 05:28 Dose: 40 mg Documented by: Quetiapine Fumarate (Seroquel) 25 mg PO 2000 [facility] Last Admin: 09/24/19 22:10 Dose: 25 mg Documented by: Quetiapine Fumarate (Seroquel) 12.5 mg PO DAILY [facility] Sodium Biphosphate/Sodium Phosphate (Fleet Enema) 1 bottle RECTAL DAILY PRN PRN PRN Reason: Constipation Sodium Chloride () 10 - 40 ml IV UD PRN PRN Reason: SALINE FLUSH Last Admin: 09/25/19 05:28 Dose: 20 ml Documented by: Medical Necessity - Tobacco Use Smoking Status: Never smoker Tobacco Use: Non-smoker Assessment/Plan All Active Problems (Last Reviewed 06/21/19 @ 14:[address] Josue Gregory MD) Severe sepsis (Acute) Pneumonia (Acute) Bronchitis (Acute) RECOMMENDATIONS: 1. Continue empiric antimicrobials. Recommend completing a 7-day treatment course. 2. Continue bronchodilators and steroids. Prednisone taper at discharge would be recommended. 3. Wean supplemental oxygen to maintain saturations at or above 90%. 4. Recommend BiPAP utilization with naps and nightly. 5. Encourage incentive spirometer use and mobilize patient as tolerated. 6. Follow-up with primary consultants intern within 2 weeks of discharge, Dr. Diaz. IMPRESSIONS: 1. Acute hypoxemic respiratory failure Appears to be secondary to rhinovirus upper respiratory infection. The patient's plain film chest x-ray did not reveal evidence of a focal infiltrate. She will be continued on bronchodilators and steroids. I would recommend that we continue her on BiPAP therapy with naps and nightly. Encourage incentive spirometer use and mobilize patient as tolerated. Supplemental oxygen can be weaned to maintain saturations at or above 90%. 2. Personal history of pulmonary sarcoidosis/traumatic brain injury/unspecified seizure disorder/history of CVA Complicates care, management, recovery and prognosis. Continue home medications as indicated. CODE STATUS verified to be DNR CCA without intubation. This note was generated with [employer] dictation software. It may contain incorrect words, spelling, and punctuation that were not noted in checking the note before signing. Code Visit Inpatient E&M: 26034 Subs Hosp L2
--- NOTE | 2019-09-25 13:00 | PN_ITS ---
<Rhett Maldonado - Last Filed: 09/25/19 13:00> Patient Problems: Active and Suspected Problems (Last Reviewed 06/21/19 @ 14:[address] Josue Gregory MD) Severe sepsis (Acute) Pneumonia (Acute) Bronchitis (Acute) Reason for Visit: Pt doing well. More alert today. No lethargy. Ongoing cough. SOB improved. No fever/chills. NO CP. No LE edema. Pt still weak, tired. feels she is much weaker than before admission, and that he thinks she needs better care at discharge than what she was getting at [facility] - he is looking into alternative nursing facilities. Vitals/I&O's: Vital Signs Temp Pulse Resp BP Pulse Ox 97.8 F 58 L 16 154/80 H 97 09/25/19 09:20 09/25/19 12:13 09/25/19 10:40 09/25/19 09:20 09/25/19 10:00 Oxygen Flow Rate (L/min) 2 Oxygen Delivery Method Nasal Cannula Weight: 138 lb 3.677 oz Body Mass Index (BMI) 24.2 Intake and Output for Last 24 Hours 09/23/19 09/24/19 09/25/19 23:59 23:59 23:59 Intake Total 2986.67 / 2986.67 574 / 624 262 / 262 Output Total 300 / 300 100 / 100 Balance 2686.67 / 2686.67 474 / 524 262 / 262 General: Alert, Oriented x3, Cooperative HEENT: Atraumatic, PERRLA, EOMI, Normocephalic Neck: Supple, No JVD, Negative Carotid Bruits Lungs: Diminished, Wheezes Cardiovascular: Regular rate, No murmurs Abdomen: Bowel Sounds Present, Soft, Non Tender Extremities: No edema, Capillary Refill Less than 3 Seconds Skin: No rashes, No breakdown Musculoskeletal: No Tenderness to Palpation of Joints or Extremities Neurological: Cranial nerves II-XII grossly intact Psych/Mental Status: Normal Affect, Appropriate, Alert and oriented to time, place, person, mood and affect Microbiology Past 72 Hours 09/23/19 14:39 Urine, Clean Catch Urine Culture - Preliminary Culture exhibits no growth. 09/23/19 16:00 Mucosa - Nasopharyngeal Respiratory Panel (PCR) - Final Rhinovirus 02/22/20 14:39 Urine, Clean Catch Streptococcus pneumoniae Antigen (M - Final 09/23/19 14:39 Urine, Clean Catch Legionella Antigen - Final 09/23/19 16:00 Mucosa - Nasopharyngeal Influenza Types A,B Direct FA (SILVIA) - Final Laboratory Results 09/24/19 05:35: Ferritin 135 09/24/19 17:15: Immature Plt Fraction 6.7, Retic Count 1.32, Immature Retic Fraction 17.50 H, Retic Hgb Equivalent 28.2 L 09/24/19 17:15: TSH 0.76, Free T4 0.93 09/24/19 17:15: Vitamin B12 Pending, Vitamin D 25-Hydroxy Pending 09/24/19 17:15: RPR Pending 09/24/19 17:15: RAAD Screen Pending, SMOOTH-1 Antibody Pending, SS-A/Ro IgG Antibody Pending, SS-B/La IgG Antibody Pending, Sm (Schneider) Antibody Pending, GENERAL TELLER Antibody Pending, Scl-70 Scleroderma Ab Pending, Double Strand DNA Ab Pending, Centromere B Antibody Pending 09/24/19 17:15: Valproic Acid 39 L 09/25/19 05:47: WBC 5.6, RBC 3.36 L, Hgb 10.2 L, Hct 32.1 L, MCV 95.5, MCH 30.4, MCHC 31.8 L, RDW Std Deviation 43.9, RDW Coeff of Phylicia 12.7, Plt Count 128 L, MPV 11.6, Immature Gran % (Auto) 1.100 H, Neut % (Auto) 85.1 H, Lymph % (Auto) 10.0 L, Daniels % (Auto) 3.6, Eos % (Auto) 0.0, Baso % (Auto) 0.2, Absolute Neuts (auto) 4.8, Absolute Lymphs (auto) 0.56 L, Nucleated RBC % 0, Differential Comment SC ANNED 09/25/19 05:47: Sodium 146 H, Potassium 3.9, Chloride 111 H, Carbon Dioxide 31.0, Anion Gap 4 L, BUN 26 H, Creatinine 0.64, Estim Creat Clear Calc 45.78, Est GFR (MDRD) Af Amer 119, Est GFR (MDRD) Non-Af 99, BUN/Creatinine Ratio 40.6 H, Glucose 127 H, Calcium 8.8 Current Medications Al Hydroxide/Mg Hydroxide (Mylanta Ii) 30 ml PO Q4H PRN PRN PRN Reason: INDIGESTION Albuterol Sulfate (Ventolin Aerosols) 2.5 mg INHALATION BID PRN PRN PRN Reason: SOB &/OR WHEEZING Albuterol/Ipratropium (Duoneb) 3 ml INHALATION Q4HWA.RT [facility] Last Admin: 09/25/19 10:40 Dose: 3 ml Documented by: Aspirin (Aspirin, Baby) 81 mg PO DAILY@0800 [facility] Last Admin: 09/25/19 09:56 Dose: 81 mg Documented by: Bisacodyl (Dulcolax) 10 mg RECTAL DAILY PRN PRN PRN Reason: Constipation Carvedilol (Coreg) 6.25 mg PO BID [facility] Last Admin: 09/25/19 09:56 Dose: 6.25 mg Documented by: Dextrose (D50w Syringe) 0 gm IV X1 PRN; Protocol PRN Reason: Hypoglycemia Divalproex Sodium (Depakote) 250 mg PO QHS [facility] Last Admin: 09/24/19 22:10 Dose: 250 mg Documented by: Divalproex Sodium (Depakote) 125 mg PO QHS [facility] Last Admin: 09/24/19 22:10 Dose: 125 mg Documented by: Enoxaparin Sodium (Lovenox) 40 mg SC DAILY [facility] Last Admin: 09/25/19 09:56 Dose: 40 mg Documented by: Glucagon () 1 mg IM .X1 PRN PRN Reason: Hypoglycemia Guaifenesin (Robitussin) 10 ml PO Q4H PRN PRN PRN Reason: COUGH Last Admin: 09/24/19 21:53 Dose: 10 ml Documented by: Haloperidol Lactate (Haldol) 1 mg IV Q4H PRN PRN PRN Reason: SEVERE AGITATION Ampicillin Sodium/Sulbactam (Sodium 3 gm/ Sodium Chloride) 112 mls @ 150 mls/hr IV Q8 [facility] Last Infusion: 09/25/19 06:15 Dose: Infused Documented by: Magnesium Hydroxide (Milk Of Magnesia) 30 ml PO DAILY PRN PRN PRN Reason: Constipation Methylprednisolone (Solu-Medrol) 40 mg IV Q8 [facility] Last Admin: 09/25/19 05:28 Dose: 40 mg Documented by: Quetiapine Fumarate (Seroquel) 25 mg PO 1999 [facility] Last Admin: 09/24/19 22:10 Dose: 25 mg Documented by: Quetiapine Fumarate (Seroquel) 12.5 mg PO DAILY [facility] Sodium Biphosphate/Sodium Phosphate (Fleet Enema) 1 bottle RECTAL DAILY PRN PRN PRN Reason: Constipation Sodium Chloride () 10 - 40 ml IV UD PRN PRN Reason: SALINE FLUSH Last Admin: 09/25/19 05:28 Dose: 20 ml Documented by: STROKE Vital Signs/Narrative: Vital Signs Temp Pulse Resp BP Pulse Ox 09/25/19 12:13 58 L 09/25/19 10:40 88 16 09/25/19 10:00 97 09/25/19 09:20 97.8 F 78 15 154/80 H 98 Medical Necessity - Tobacco Use Smoking Status: Never smoker Tobacco Use: Non-smoker Assessment/Plan All Active Problems (Last Reviewed 06/21/19 @ 14:[address] Josue Gregory MD) Severe sepsis (Acute) Pneumonia (Acute) Bronchitis (Acute) 1. Acute severe sepsis 2/2 acute bronchitis - + LA, afebrile, no leukcoytosis, tachypnea, pulse >90, increased t bili. Abx changed to unasyn with hx of dysphagia. + Rhinovirus. failed levaquin/prednisone. panculture. Continue IV fluids. UA neg. Continue IS/PEP/mucinex. Continue Bipap with naps/qhs. Hx dysphagia - Speech evals. -plan for 7-10 days abx to cover for aspiration. -continue ST evals/tx 2. Sarcoidosis with pulmonary manifestations - pt of dr. Diaz. Continue IV solumedrol. Encourage IS/PEP therapy. Plan for prednisone taper at dc. Rheumatoid panel pending. 3. TBI with behavioral disturbance - depakote, seroquel. RPR pending. CT brain chronic changes. 4. Thrombocytopenia - improved. Trend. 5. hx CVA - on aspirin, no statin. 6. Hx asthma - continue prn albuterol, duonebs 7. Dysphagia - ST. Modified diet. 8. Normocytic anemia - inc retic count, decreased iron, tibc, sat. ferritin nl. TSH t4 normal. B12 pending. DVT ppx: lovenox DC planning: SNF. wants a different SNF. Pt plans to f.u with Dr. Reid for new PCP at [facility] This patient was seen by Rhett Maldonado PA-C under the supervision of Dr. Huang <Sim Huang - Last Filed: 09/25/19 17:46> Reason for Visit: Patient is still having cough, shortness of breath on exertion. Lethargic. Has wheezing. Patient has a concern regarding going back to [facility]. Vitals/I&O's: Vital Signs Temp Pulse Resp BP Pulse Ox 97.8 F 74 18 130/64 H 94 09/25/19 16:00 09/25/19 16:15 09/25/19 16:00 09/25/19 16:00 09/25/19 16:00 Oxygen Flow Rate (L/min) 2 Oxygen Delivery Method Room Air Weight: 138 lb 3.677 oz Body Mass Index (BMI) 24.2 Intake and Output for Last 24 Hours 09/23/19 09/24/19 09/25/19 23:59 23:59 23:59 Intake Total 2986.67 / 2986.67 574 / 624 614 / 614 Output Total 300 / 300 100 / 100 Balance 2686.67 / 2686.67 474 / 524 614 / 614 General: Oriented x3, Cooperative, Lethargic HEENT: Atraumatic, PERRLA, EOMI, Normocephalic Neck: Supple, No JVD, Negative Carotid Bruits Lungs: Diminished - Entry diffusely diminished bilaterally., Rhonchi, Short of Breath, Wheezes Cardiovascular: Regular rate, Regular Rhythm, Normal S1, Normal S2, No murmurs Abdomen: Bowel Sounds Present, Soft, Non Tender, Non-Distended Extremities: No edema, Capillary Refill Less than 3 Seconds Skin: No rashes, No breakdown Musculoskeletal: No Tenderness to Palpation of Joints or Extremities, Arthritic Changes, Muscle Wasting Neurological: Cranial nerves II-XII grossly intact, - - Lethargic Psych/Mental Status: Normal Affect, Appropriate Microbiology Past 72 Hours 09/23/19 13:58 Blood Culture (Wb) - Anticubital Left Blood Culture - Preliminary No growth in 48 hours. 09/23/19 14:23 Blood Culture (Wb) - Right Hand Blood Culture - Preliminary No growth in 48 hours. 09/23/19 14:39 Urine, Clean Catch Urine Culture - Preliminary Culture exhibits no growth. 09/23/19 16:00 Mucosa - Nasopharyngeal Respiratory Panel (PCR) - Final Rhinovirus 09/23/19 14:39 Urine, Clean Catch Streptococcus pneumoniae Antigen (M - Final 09/23/19 14:39 Urine, Clean Catch Legionella Antigen - Final 09/23/19 16:00 Mucosa - Nasopharyngeal Influenza Types A,B Direct FA (SILVIA) - Final Laboratory Results 09/24/19 17:15: TSH 0.76, Free T4 0.93 09/24/19 17:15: Valproic Acid 39 L 09/25/19 05:47: WBC 5.6, RBC 3.36 L, Hgb 10.2 L, Hct 32.1 L, MCV 95.5, MCH 30.4, MCHC 31.8 L, RDW Std Deviation 43.9, RDW Coeff of Phylicia 12.7, Plt Count 128 L, MPV 11.6, Immature Gran % (Auto) 1.100 H, Neut % (Auto) 85.1 H, Lymph % (Auto) 10.0 L, Daniels % (Auto) 3.6, Eos % (Auto) 0.0, Baso % (Auto) 0.2, Absolute Neuts (auto) 4.8, Absolute Lymphs (auto) 0.56 L, Nucleated RBC % 0, Differential Comment SCANNED 09/25/19 05:47: Sodium 146 H, Potassium 3.9, Chloride 111 H, Carbon Dioxide 31.0, Anion Gap 4 L, BUN 26 H, Creatinine 0.64, Estim Creat Clear Calc 45.78, Est GFR (MDRD) Af Amer 119, Est GFR (MDRD) Non-Af 99, BUN/Creatinine Ratio 40.6 H, Glucose 127 H, Calcium 8.8 Current Medications Al Hydroxide/Mg Hydroxide (Mylanta Ii) 30 ml PO Q4H PRN PRN PRN Reason: INDIGESTION Albuterol Sulfate (Ventolin Aerosols) 2.5 mg INHALATION BID PRN PRN PRN Reason: SOB &/OR WHEEZING Albuterol/Ipratropium (Duoneb) 3 ml INHALATION Q4HWA.RT [facility] Last Admin: 09/25/19 14:33 Dose: 3 ml Documented by: Aspirin (Aspirin, Baby) 81 mg PO DAILY@0800 [facility] Last Admin: 09/25/19 09:56 Dose: 81 mg Documented by: Bisacodyl (Dulcolax) 10 mg RECTAL DAILY PRN PRN PRN Reason: Constipation Carvedilol (Coreg) 6.25 mg PO BID [facility] Last Admin: 09/25/19 09:56 Dose: 6.25 mg Documented by: Dextrose (D50w Syringe) 0 gm IV X1 PRN; Protocol PRN Reason: Hypoglycemia Divalproex Sodium (Depakote) 250 mg PO QHS [facility] Last Admin: 09/24/19 22:10 Dose: 250 mg Documented by: Divalproex Sodium (Depakote) 125 mg PO QHS [facility] Last Admin: 09/24/19 22:10 Dose: 125 mg Documented by: Enoxaparin Sodium (Lovenox) 40 mg SC DAILY [facility] Last Admin: 09/25/19 09:56 Dose: 40 mg Documented by: Glucagon () 1 mg IM .X1 PRN PRN Reason: Hypoglycemia Guaifenesin (Robitussin) 10 ml PO Q4H PRN PRN PRN Reason: COUGH Last Admin: 09/24/19 21:53 Dose: 10 ml Documented by: Haloperidol Lactate (Haldol) 1 mg IV Q4H PRN PRN PRN Reason: SEVERE AGITATION Ampicillin Sodium/Sulbactam (Sodium 3 gm/ Sodium Chloride) 112 mls @ 150 mls/hr IV Q8 [facility] Last Infusion: 09/25/19 14:29 Dose: Infused Documented by: Magnesium Hydroxide (Milk Of Magnesia) 30 ml PO DAILY PRN PRN PRN Reason: Constipation Methylprednisolone (Solu-Medrol) 40 mg IV Q8 [facility] Last Admin: 09/25/19 13:23 Dose: 40 mg Documented by: Quetiapine Fumarate (Seroquel) 25 mg PO 2000 [facility] Last Admin: 09/24/19 22:10 Dose: 25 mg Documented by: Quetiapine Fumarate (Seroquel) 12.5 mg PO DAILY [facility] Last Admin: 09/25/19 13:22 Dose: Not Given Documented by: Sodium Biphosphate/Sodium Phosphate (Fleet Enema) 1 bottle RECTAL DAILY PRN PRN PRN Reason: Constipation Sodium Chloride () 10 - 40 ml IV UD PRN PRN Reason: SALINE FLUSH Last Admin: 09/25/19 05:28 Dose: 20 ml Documented by: STROKE Vital Signs/Narrative: Vital Signs Temp Pulse Resp BP Pulse Ox 09/25/19 16:15 74 09/25/19 16:00 97.8 F 73 18 130/64 H 94 09/25/19 14:33 82 20 H 94 Assessment/Plan This patient was seen in conjunction with Rhett VERDUGO. I have independently interviewed and examined the patient and reviewed pertinent history, examination findings, laboratory and plan of management. I have reviewed the note and agree with the documented findings with the few additional points. In brief, patient is 64-year-old female, retirement resident with history of pulmonary sarcoidosis admitted with cough, shortness of breath and acute bronchitis secondary to rhinovirus. Patient is on BiPAP, rescue therapy with nebs. Speech and swallow evaluation for history of oropharyngeal dysphagia. On Unasyn for high suspicion of aspiration pneumonia She has other comorbidities mentioned above including TBI with behavioral disturbance, thrombocytopenia, history of CVA, asthma and normocytic anemia. I have discussed my assessment with Rhett VERDUGO and orders have been reviewed. Microbiology Past 72 Hours 09/23/19 13:58 Blood Culture (Wb) - Anticubital Left Blood Culture - Preliminary No growth in 48 hours. 09/23/19 14:23 Blood Culture (Wb) - Right Hand Blood Culture - Preliminary No growth in 48 hours. 09/23/19 14:39 Urine, Clean Catch Urine Culture - Preliminary Culture exhibits no growth. 09/23/19 16:00 Mucosa - Nasopharyngeal Respiratory Panel (PCR) - Final Rhinovirus 09/23/19 14:39 Urine, Clean Catch Streptococcus pneumoniae Antigen (M - Final 09/23/19 14:39 Urine, Clean Catch Legionella Antigen - Final 09/23/19 16:00 Mucosa - Nasopharyngeal Influenza Types A,B Direct FA (SILVIA) - Final Laboratory Results 09/24/19 17:15: TSH 0.76, Free T4 0.93 09/24/19 17:15: Valproic Acid 39 L 09/25/19 05:47: WBC 5.6, RBC 3.36 L, Hgb 10.2 L, Hct 32.1 L, MCV 95.5, MCH 30.4, MCHC 31.8 L, RDW Std Deviation 43.9, RDW Coeff of Phylicia 12.7, Plt Count 128 L, MPV 11.6, Immature Gran % (Auto) 1.100 H, Neut % (Auto) 85.1 H, Lymph % (Auto) 10.0 L, Daniels % (Auto) 3.6, Eos % (Auto) 0.0, Baso % (Auto) 0.2, Absolute Neuts (auto) 4.8, Absolute Lymphs (auto) 0.56 L, Nucleated RBC % 0, Differential Comment SCANNED 09/25/19 05:47: Sodium 146 H, Potassium 3.9, Chloride 111 H, Carbon Dioxide 31.0, Anion Gap 4 L, BUN 26 H, Creatinine 0.64, Estim Creat Clear Calc 45.78, Est GFR (MDRD) Af Amer 119, Est GFR (MDRD) Non-Af 99, BUN/Creatinine Ratio 40.6 H, Glucose 127 H, Calcium 8.8 Active Medications Al Hydroxide/Mg Hydroxide (Mylanta Ii) 30 ml PO Q4H PRN PRN PRN Reason: INDIGESTION Albuterol Sulfate (Ventolin Aerosols) 2.5 mg INHALATION BID PRN PRN PRN Reason: SOB &/OR WHEEZING Albuterol/Ipratropium (Duoneb) 3 ml INHALATION Q4HWA.RT [facility] Last Admin: 09/25/19 14:33 Dose: 3 ml Documented by: Aspirin (Aspirin, Baby) 81 mg PO DAILY@0800 [facility] Last Admin: 09/25/19 09:56 Dose: 81 mg Documented by: Bisacodyl (Dulcolax) 10 mg RECTAL DAILY PRN PRN PRN Reason: Constipation Carvedilol (Coreg) 6.25 mg PO BID [facility] Last Admin: 09/25/19 09:56 Dose: 6.25 mg Documented by: Dextrose (D50w Syringe) 0 gm IV X1 PRN; Protocol PRN Reason: Hypoglycemia Divalproex Sodium (Depakote) 250 mg PO QHS [facility] Last Admin: 09/24/19 22:10 Dose: 250 mg Documented by: Divalproex Sodium (Depakote) 125 mg PO QHS [facility] Last Admin: 09/24/19 22:10 Dose: 125 mg Documented by: Enoxaparin Sodium (Lovenox) 40 mg SC DAILY [facility] Last Admin: 09/25/19 09:56 Dose: 40 mg Documented by: Glucagon () 1 mg IM .X1 PRN PRN Reason: Hypoglycemia Guaifenesin (Robitussin) 10 ml PO Q4H PRN PRN PRN Reason: COUGH Last Admin: 09/24/19 21:53 Dose: 10 ml Documented by: Haloperidol Lactate (Haldol) 1 mg IV Q4H PRN PRN PRN Reason: SEVERE AGITATION Ampicillin Sodium/Sulbactam (Sodium 3 gm/ Sodium Chloride) 112 mls @ 150 mls/hr IV Q8 [facility] Last Infusion: 09/25/19 14:29 Dose: Infused Documented by: Magnesium Hydroxide (Milk Of Magnesia) 30 ml PO DAILY PRN PRN PRN Reason: Constipation Methylprednisolone (Solu-Medrol) 40 mg IV Q8 [facility] Last Admin: 09/25/19 13:23 Dose: 40 mg Documented by: Quetiapine Fumarate (Seroquel) 25 mg PO 1999 [facility] Last Admin: 09/24/19 22:10 Dose: 25 mg Documented by: Quetiapine Fumarate (Seroquel) 12.5 mg PO DAILY [facility] Last Admin: 09/25/19 13:22 Dose: Not Given Documented by: Sodium Biphosphate/Sodium Phosphate (Fleet Enema) 1 bottle RECTAL DAILY PRN PRN PRN Reason: Constipation Sodium Chloride () 10 - 40 ml IV UD PRN PRN Reason: SALINE FLUSH Last Admin: 09/25/19 05:28 Dose: 20 ml Documented by: Clinical Impression(s) from Imaging Studies Chest X-Ray 09/23/19 14:00 IMPRESSION: 1. No airspace consolidation or pleural effusion. Stable exam. 2. Similar fibrotic changes, since 2018. Electronically Signed: Dipak Orozco MD (Brooks) at 14:36 EST , Service support , Chest X-Ray 09/23/19 20:11 IMPRESSION: No active disease. Electronically Signed: Seth Blandon MD at 20:37 EST Tel , Service support , Brain CT 09/24/19 17:07 IMPRESSION: 1. Chronic involutional changes of the brain. 2. No CT evidence of acute intracranial hemorrhage. 3. Left maxillary sinus disease. Code Visit Inpatient E&M: 94524 Subs Hosp L2
--- NOTE | 2019-09-25 15:05 | CASEMGMT ---
Patient's wanted patient to go to TCU. SW explained that they are full. SW also asked if the plan is to eventually take her home and he said it is not. SW told him that TCU is short term only. After much thought he decided to send patient back to [facility] when she is ready. Hattie SIERRA
[2019-09-25] MEDS: QUEtiapine 25 MG Tablet PO (20:43)
[2019-09-25] MEDS: Divalproex Sodium 250 MG Tablet PO (22:18)
[2019-09-25] MEDS: Divalproex Sodium 125 MG Tablet PO (22:18)
[2019-09-26] VITALS (8 sets, daily range): BP systolic 130–156; BP diastolic 47–67; PULSE 63–89; RESP 16–20; TEMP 36.2–36.3; O2SAT 91–95
--- NOTE | 2019-09-26 00:24 | CPS ---
pt refused bipap this pm
[2019-09-26] MEDS: Ipratropium/Albuterol Sulfate 3 ML AMPUL.NEB INHALATION ×3 (04:10→10:29)
[2019-09-26 05:52] LABS: Absolute Lymphocyte Count 0.46 X10^3/uL (0.83-4.51); Absolute Neutrophil Count 5.6 X10^3/uL (2.0-7.7); Basophil# 0.02 X10^3/uL; Basophil% 0.3 % (0-1); Hematocrit 32.9 % (37-47); Hemoglobin 10.6 g/dL (12.0-15.0); Lymphocyte # 0.46 X10^3/ul (4.0); Lymphocyte % 7.2 % (19-41); Mean Corp Hgb Conc 32.2 g/dL (32-36); Mean Corpuscular Hgb 30.7 pg (27.0-32.0); Mean Corpuscular Volume 95.4 fL (81-99); Mean Platelet Vol. 11.9 fl (6.2-12.0); Monocyte# 0.14 X10^3/uL; Monocyte% 2.2 % (0-10); NRBC Flagged by Analyzer 0 % (0-5); Neutrophil # 5.63 X10^3/uL (2.7-7.7); Neutrophil % 88.6 % (47-70); POSITIVE DIFFERENTIAL YES; Platelet Count 151 K/mm3 (150-450); RBC Distribution Width CV 12.6 % (11.6-14.6); RBC Distribution Width SD 43.6 fl (35.1-43.9); Red Blood Count 3.45 M/mm3 (4.2-5.4); White Blood Count 6.4 K/mm3 (4.4-11.0)
[2019-09-26 05:54] LABS: Differential Indicated SCAN CRITERIA MET
[2019-09-26 06:18] LABS: Differential Comment SCANNED; Platelet Estimate ADEQUATE (ADEQ); Red Cell Morphology NORM C+C NORMAL (NORM C&C)
[2019-09-26] MEDS: 0.9% Saline Lock 10 ML Syringe IV (06:35)
[2019-09-26] MEDS: QUEtiapine 25 MG Tablet 12.5 MG PO (09:21)
[2019-09-26] MEDS: Enoxaparin 40 MG/0.4 ML Syringe SC (09:21)
[2019-09-26] MEDS: Aspirin 81 MG TAB.CHEW PO (09:21)
[2019-09-26] MEDS: Carvedilol 6.25 MG Tablet PO (09:21)
[2019-09-26 09:26] LABS: Vitamin B12 790 pg/mL (211-911); Vitamin D,25 Hydroxy 49.6 ng/mL
--- NOTE | 2019-09-26 11:10 | CASEMGMT ---
SW let patient's know that patient will be discharged today. He has to leave at noon for an appt. SW will await d/c instructions. Hattie MARIO MSW
--- NOTE | 2019-09-26 11:40 | TREXTCA.CO_ITS ---
<Rhett Maldonado - Last Filed: 09/25/19 11:19> - Diet 09/24/19 11:30 Diet: Regular Diet Food consistency:: Mechanical Soft/Ground Liquid Consistency:: [place] Thick Is pt able to select menu?: Yes Diet Comments: Supervision, alternating bites/sip, - Routine Orders/Code Status Suppository Type: Dulcolax 10mg Suppository Frequency: Daily PRN O2 Frequency: PRN Routine Lab Work: CBC - 5 days, BMP - 5 days Code Status: [facility] - Wound(s) abdominal fold Wound Type: excoriation/rash - Therapies Physical Therapy: Eval and Treat Occupational Therapy: Eval and Treat Speech Therapy: Eval and Treat - Problem/Diagnosis (1) Severe sepsis Status: Acute Current Visit: Yes (2) Bronchitis Status: Acute Current Visit: Yes (3) Asthma Status: Chronic Current Visit: Yes (4) Traumatic brain injury Status: Chronic Current Visit: Yes (5) Pulmonary sarcoidosis Status: Chronic Current Visit: No (6) Essential (primary) hypertension Status: Chronic Current Visit: No (7) Cerebrovascular accident Status: Chronic Current Visit: No - Allergies/Procedures Done in Hospital Allergies/Adverse Reactions: Allergies Sulfa (Sulfonamide Antibiotics) Allergy (Severe, Verified 09/23/19 13:33) Hives Procedures: None - Type of Care/Length of Stay Estimated LOS: More Than 30 Days Type of Care Needed: Skilled Rehab Potential: Fair Prognosis: Fair - Additional Orders/Day of Discharge Day of Discharge: 09/25/19 - Dietary and Speech Recommendations Dietitian Recommendations/Changes: Rec continue Regular diet w/ texture modifications per [employer]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 Will provide pt ONS Ensure Enlive at meals to provide additional fredrick/pro if consumed. - Follow Up Care Primary Care Physician: Rodger Obregon DO [Primary Care Provider] - Please follow up with your Primary Care Physician in: 1-2 weeks Please Follow Up With: Rodger Diaz MD When: 1-2 weeks <Sim Huang - Last Filed: 09/26/19 11:57> - Diet 09/24/19 11:30 Diet: Regular Diet Food consistency:: Mechanical Soft/Ground Liquid Consistency:: [place] Thick Is pt able to select menu?: Yes Diet Comments: Supervision, alternating bites/sip, - Routine Orders/Code Status Suppository Type: Dulcolax 10mg Suppository Frequency: Daily PRN O2 Frequency: PRN Routine Lab Work: CBC, BMP Code Status: [facility] - Additional Orders/Day of Discharge Day of Discharge: 09/26/19
--- NOTE | 2019-09-26 11:41 | CASEMGMT ---
SW spoke with patient's and he is aware of d/c today. He said he is not comfortable transporting her like this. He prefers [facility]. SW called [facility] and they do not have any wheelchair vans available today. KATHIE called [facility] and asked if they could pick patient up as SW is having difficulties finding wheelchair transport. She will check and let KATHIE know. Hattie MARIO MSW
--- NOTE | 2019-09-26 12:03 | NURSING ---
Called report to Pallavi CORTEZ at [facility]
--- NOTE | 2019-09-26 13:45 | PCM.DC.SUM ---
<Rhett Maldonado - Last Filed: 09/26/19 13:45> Discharge Date and Diagnosis Date of Admission: 09/23/19 Date of Discharge: 09/26/19 - Primary Discharge Diagnosis Active and Suspected Problems (Last Reviewed 06/21/19 @ 14:[address] Josue Gregory MD) Acute severe sepsis secondary to acute bronchitis Acute rhinovirus Concern for aspiration, without pneumonia Sarcoidosis with pulmonary manifestations History of traumatic brain injury with behavioral disturbances Thrombocytopenia unclear etiology History of CVA History of asthma Dysphagia Chronic normocytic anemia - Secondary Discharge Diagnosis Chronic Problems (Last Reviewed 06/21/19 @ 14:[address] Josue Gregory MD) Asthma (Chronic) Traumatic brain injury (Chronic) Pulmonary sarcoidosis (Chronic) Essential (primary) hypertension (Chronic) Cerebrovascular accident (Chronic) Hospital Course and Treatment Imaging Results: RAD/Chest 1 View (Portable) IMPRESSION: 1. No airspace consolidation or pleural effusion. Stable exam. 2. Similar fibrotic changes, since 2018. RAD/Chest 1 View (Portable) IMPRESSION: No active disease. CT/Brain/Head without Contrast IMPRESSION: 1. Chronic involutional changes of the brain. 2. No CT evidence of acute intracranial hemorrhage. 3. Left maxillary sinus disease. Operations: None Procedures: None Summary of Care Provided: Hospital course: The patient is a 64 year old F past medical history of traumatic brain injury with behavioral disturbances, history of sarcoidosis with pulmonary manifestations, chronic oxygen use, prior stroke, asthma, who presented to the emergency room with increased shortness of breath from [facility] shelter. She was having a nonproductive cough, fevers of 101.5, and progressive worsening shortness of breath despite starting steroids and Levaquin by her steam meter reader. In the emergency room she was found to have a negative chest x-ray, was satting 94% on room air, however had increased lactic acidosis, pulse greater than 90, tachypnea, increased T bili. She was felt to have acute bronchitis. She was very wheezy and rhonchorous on exam. She was started on Vanco and Zosyn as she is from shelter and had failed Levaquin as an outpatient. She was admitted to the ICU with severe sepsis. She was given BiPAP at night. She was started on steroids, and aerosols. Rapid influenza and respiratory panel were ordered. She did test positive for rhinovirus. She was transitioned out of the ICU to the monitored floor the following day. She continued to have some behavioral disturbances and low-dose Seroquel was started in addition to her Depakote. She did well with this combination. CT of the brain was obtained with no new changes. B12 was normal, vitamin D was normal, TSH was normal, T4 was normal. She had rheumatologic panel drawn which is pending at this time. RPR is pending, MRSA was negative. She was able to be weaned off oxygen. Speech therapy eval was ordered as she has a history of dysphagia. She did have significant dysphagia and a modified diet was ordered. Antibiotics were changed to Unasyn to cover for aspiration. This was eventually transitioned to Augmentin. She was discharged back to shelter in stable condition. She will need to complete a course of Augmentin, steroid taper, and should continue aerosols. She will need follow-up with her steam meter reader in 1 to 2 weeks, follow-up with her PCP in 1 to 2 weeks. She is considering changing her PCP to Dr. Reid whom she may follow up with as an outpatient. This patient was seen by Rhett Maldonado PA-C under the supervision of Doctor Huang. [] - Physical Exam Vitals/I&O's: Vital Signs Temp Pulse Resp BP Pulse Ox 97.2 F L 71 16 130/47 H 92 09/26/19 09:20 09/26/19 10:29 09/26/19 10:29 09/26/19 09:20 09/26/19 10:29 Oxygen Flow Rate (L/min) 2 Oxygen Delivery Method Room Air Weight: 137 lb 9.095 oz Body Mass Index (BMI) 24.2 Intake and Output for Last 24 Hours 09/24/19 09/25/19 09/26/19 23:59 23:59 23:59 Intake Total 574 / 624 1136.25 / 1136.25 607.75 / 607.75 Output Total 100 / 100 0 / 0 Balance 474 / 524 1136.25 / 1136.25 607.75 / 607.75 General: Alert, Oriented x3, Cooperative HEENT: Atraumatic, PERRLA, EOMI, Normocephalic Neck: Supple, No JVD, Negative Carotid Bruits Lungs: Diminished, - - course Cardiovascular: Regular rate, No murmurs Abdomen: Bowel Sounds Present, Soft, Non Tender Extremities: No edema, Capillary Refill Less than 3 Seconds Skin: No rashes, No breakdown Musculoskeletal: No Tenderness to Palpation of Joints or Extremities Neurological: Cranial nerves II-XII grossly intact Psych/Mental Status: Normal Affect, Appropriate, Alert and oriented to time, place, person, mood and affect Microbiology Past 72 Hours 09/23/19 14:39 Urine, Clean Catch Urine Culture - Final Culture exhibits no growth. 09/23/19 13:58 Blood Culture (Wb) - Anticubital Left Blood Culture - Preliminary No growth in 48 hours. 09/23/19 14:23 Blood Culture (Wb) - Right Hand Blood Culture - Preliminary No growth in 48 hours. 09/23/19 16:00 Mucosa - Nasopharyngeal Respiratory Panel (PCR) - Final Rhinovirus 09/23/19 14:39 Urine, Clean Catch Streptococcus pneumoniae Antigen (M - Final 09/23/19 14:39 Urine, Clean Catch Legionella Antigen - Final 09/23/19 16:00 Mucosa - Nasopharyngeal Influenza Types A,B Direct FA (SILVIA) - Final Laboratory Results 09/24/19 17:15: Vitamin B12 790, Vitamin D 25-Hydroxy 49.6 09/26/19 05:04: WBC 6.4, RBC 3.45 L, Hgb 10.6 L, Hct 32.9 L, MCV 95.4, MCH 30.7, MCHC 32.2, RDW Std Deviation 43.6, RDW Coeff of Phylicia 12.6, Plt Count 151, MPV 11.9, Immature Gran % (Auto) 1.700 H, Neut % (Auto) 88.6 H, Lymph % (Auto) 7.2 L, Mcdowell % (Auto) 2.2, Eos % (Auto) 0.0, Baso % (Auto) 0.3, Absolute Neuts (auto) 5.6, Absolute Lymphs (auto) 0.46 L, Nucleated RBC % 0, Differential Comment SCANNED, Platelet Estimate ADEQUATE, RBC Morphology NORM C+C Current Medications Al Hydroxide/Mg Hydroxide (Mylanta Ii) 30 ml PO Q4H PRN PRN PRN Reason: INDIGESTION Albuterol Sulfate (Ventolin Aerosols) 2.5 mg INHALATION BID PRN PRN PRN Reason: SOB &/OR WHEEZING Albuterol/Ipratropium (Duoneb) 3 ml INHALATION Q4HWA.RT [facility] Last Admin: 09/26/19 10:29 Dose: 3 ml Documented by: Aspirin (Aspirin, Baby) 81 mg PO DAILY@0800 [facility] Last Admin: 09/26/19 09:21 Dose: 81 mg Documented by: Bisacodyl (Dulcolax) 10 mg RECTAL DAILY PRN PRN PRN Reason: Constipation Carvedilol (Coreg) 6.25 mg PO BID [facility] Last Admin: 09/26/19 09:21 Dose: 6.25 mg Documented by: Dextrose (D50w Syringe) 0 gm IV X1 PRN; Protocol PRN Reason: Hypoglycemia Divalproex Sodium (Depakote) 250 mg PO QHS [facility] Last Admin: 09/25/19 22:18 Dose: 250 mg Documented by: Divalproex Sodium (Depakote) 125 mg PO QHS [facility] Last Admin: 09/25/19 22:18 Dose: 125 mg Documented by: Enoxaparin Sodium (Lovenox) 40 mg SC DAILY [facility] Last Admin: 09/26/19 09:21 Dose: 40 mg Documented by: Glucagon () 1 mg IM .X1 PRN PRN Reason: Hypoglycemia Guaifenesin (Robitussin) 10 ml PO Q4H PRN PRN PRN Reason: COUGH Last Admin: 09/24/19 21:53 Dose: 10 ml Documented by: Haloperidol Lactate (Haldol) 1 mg IV Q4H PRN PRN PRN Reason: SEVERE AGITATION Ampicillin Sodium/Sulbactam (Sodium 3 gm/ Sodium Chloride) 112 mls @ 150 mls/hr IV Q8 [facility] Last Infusion: 09/26/19 07:30 Dose: Infused Documented by: Sodium Chloride () 250 mls @ 15 mls/hr IV .[id number] PRN PRN Reason: Saline Flush Last Infusion: 09/26/19 12:30 Dose: Infused Documented by: Sodium Chloride () 250 mls @ 15 mls/hr IV .[id number] PRN PRN Reason: Additional IVPB Infusion Magnesium Hydroxide (Milk Of Magnesia) 30 ml PO DAILY PRN PRN PRN Reason: Constipation Methylprednisolone (Solu-Medrol) 40 mg IV Q8 [facility] Last Admin: 09/26/19 06:35 Dose: 40 mg Documented by: Quetiapine Fumarate (Seroquel) 25 mg PO 1999 [facility] Last Admin: 09/25/19 20:43 Dose: 25 mg Documented by: Quetiapine Fumarate (Seroquel) 12.5 mg PO DAILY [facility] Last Admin: 09/26/19 09:21 Dose: 12.5 mg Documented by: Sodium Biphosphate/Sodium Phosphate (Fleet Enema) 1 bottle RECTAL DAILY PRN PRN PRN Reason: Constipation Sodium Chloride () 10 - 40 ml IV UD PRN PRN Reason: SALINE FLUSH Last Admin: 09/26/19 06:35 Dose: 20 ml Documented by: Discharge Diet: Low fat/ Low Cholesterol, 2000 mg Sodium Diet Discharge Activity: Return to Normal Activity Home Medications: Medications to take at Discharge Aspirin [Aspirin, Baby] 81 mg PO DAILY@0800 01/24/14 carvedilol 3.125 mg tablet 6.25 mg PO BID tab 06/21/19 divalproex 250 mg tablet,delayed release 375 mg PO QHS tab 06/21/19 Acetaminophen 650 mg DE Q4H PRN PRN 09/23/19 Acetaminophen [Tylenol] 650 mg PO Q4H PRN PRN 09/23/19 Albuterol Sulfate 2.5 mg IH Q6H PRN PRN 09/23/19 Bisacodyl 10 mg DE DAILY PRN PRN 09/23/19 Budesonide 0.5 mg IH BID PRN PRN 09/23/19 Guaifenesin [Robitussin] 10 ml PO Q4H PRN PRN 09/23/19 Hydrocortisone Acetate 1 applic TP TID 09/23/19 Ipratropium/Albuterol Sulfate [Iprat-Albut 0.5-3(2.5) mg/3 ml] 3 ml IH Q4H 09/23/19 Mag Hydrox/Aluminum Hyd/Simeth [Antacid Anti-Gas Liquid] 30 ml PO Q4H PRN PRN 09/23/19 Magnesium Hydroxide [Milk Of Magnesia] 30 ml PO DAILY PRN PRN 09/23/19 Na Phos,M-B/Na Phos,Di-Ba [Fleet Enema] 1 bottle RECTAL DAILY PRN PRN 09/23/19 Nystatin Powder [Mycostatin Powder] 1 applic TOPICAL TID 09/23/19 Potassium Chloride [Klor-Con M20] 20 meq PO DAILY 09/23/19 Sennosides/Docusate Sodium [Senna Plus 8.6-50 mg Softgel] 2 ea PO QHS 09/23/19 Simethicone [Gas-X] 80 mg PO DAILY PRN PRN 09/23/19 Amoxicillin/Potassium Clav [Augmentin 875-125 Tablet] 1 ea PO BID #9 tab 09/25/19 Prednisone 10 mg PO UD #30 tab 09/25/19 Quetiapine Fumarate [Seroquel] 12.5 mg PO BIDCM tab 09/26/19 Following Prescrptions Were Given to Patient: Amoxicillin/Potassium Clav [Augmentin 875-125 Tablet] 1 ea PO BID #9 tab Prednisone 10 mg PO UD #30 tab Primary Care Physician: Rodger Obregon DO [Primary Care Provider] - Please follow up with your Primary Care Physician in: 1-2 weeks Please Follow Up With: Rodger Diaz MD When: 1-2 weeks Disposition: Home Minutes spent on discharge:: 35 Patient Condition:: Stable Medical Necessity - Tobacco Use Smoking Status: Never smoker Tobacco Use: Non-smoker Meaningful Use Info Meaningful Use Diagnoses (Choose all that apply): None applicable <Sim Huang - Last Filed: 09/26/19 17:00> Discharge Date and Diagnosis - Secondary Discharge Diagnosis Chronic Problems (Last Reviewed 06/21/19 @ 14:[address] Josue Gregory MD) Asthma (Chronic) Traumatic brain injury (Chronic) Pulmonary sarcoidosis (Chronic) Essential (primary) hypertension (Chronic) Cerebrovascular accident (Chronic) Hospital Course and Treatment Summary of Care Provided: This patient was seen in conjunction with Rhett VERDUGO. I have independently interviewed and examined the patient and reviewed pertinent history, examination findings, laboratory and plan of management. I have reviewed the note and agree with the documented findings with the few additional points. In brief, patient is 64-year-old female, halfway resident with history of pulmonary sarcoidosis admitted with cough, shortness of breath and acute bronchitis secondary to rhinovirus. Patient is on BiPAP, rescue therapy with nebs. Speech and swallow evaluation for history of oropharyngeal dysphagia. On Unasyn for high suspicion of aspiration pneumonia Discussed with the patient's regarding bronchitis secondary to rhino virus. Advised to continue incentive spirometry, chest physiotherapy, symptomatic management with Mucinex and Tessalon Perles. Vitamin B12, vitamin D 25-hydroxy, TSH, free T4 labs normal. Iron studies suggestive of anemia of chronic disease. She has other comorbidities mentioned above including TBI with behavioral disturbance, thrombocytopenia, history of CVA, asthma and normocytic anemia. Discharge medication reconciliation done. Discharge follow-up instructions completed. Discharge process discussed with the patient and all questions were answered to patient's satisfaction. Total time spent, exact 35 minutes on discharge meds reconciliation, examination, coordination of care with nurses and ancillary staff, review of imaging and blood test and discussion with the patient on follow-up instructions I have discussed my assessment with Rhett VERDUGO and orders have been reviewed. [] Subjective: In and examined. Patient is on baseline. She has chronic cough, unable to bring up phlegm, wheezing from bronchitis. Patient in mild drowsy probably secondary to Seroquel. Dose of Seroquel decreased to 12.5 mg twice daily. Objective: General: Oriented x3, Cooperative, Lethargic HEENT: Atraumatic, PERRLA, EOMI, Normocephalic Neck: Supple, No JVD, Negative Carotid Bruits Lungs: Air entry diffusely diminished bilaterally, bilateral expiratory rhonchi, Wheezes Cardiovascular: Regular rate, Regular Rhythm, Normal S1, Normal S2, No murmurs Abdomen: Bowel Sounds Present, Soft, Non Tender, Non-Distended Extremities: No edema, Capillary Refill Less than 3 Seconds Skin: No rashes, No breakdown Musculoskeletal: No Tenderness to Palpation of Joints or Extremities, Arthritic Changes, Muscle Wasting Neurological: Cranial nerves II-XII grossly intact, - - Lethargic Psych/Mental Status: Normal Affect, Appropriate - Physical Exam Vitals/I&O's: Vital Signs Temp Pulse Resp BP Pulse Ox 97.2 F L 71 16 130/47 H 92 09/26/19 09:09/26/19 10:29 09/26/19 10:29 09/26/19 09:09/26/19 10:29 Oxygen Flow Rate (L/min) 2 Oxygen Delivery Method Room Air Weight: 137 lb 9.095 oz Body Mass Index (BMI) 24.2 Intake and Output for Last 24 Hours 09/24/19 09/25/19 09/26/19 23:59 23:59 23:59 Intake Total 574 / 624 1136.25 / 1136.25 607.75 / 607.75 Output Total 100 / 100 0 / 0 Balance 474 / 524 1136.25 / 1136.25 607.75 / 607.75 Microbiology Past 72 Hours 09/23/19 14:39 Urine, Clean Catch Urine Culture - Final Culture exhibits no growth. 09/23/19 13:58 Blood Culture (Wb) - Anticubital Left Blood Culture - Preliminary No growth in 48 hours. 09/23/19 14:23 Blood Culture (Wb) - Right Hand Blood Culture - Preliminary No growth in 48 hours. 09/23/19 16:00 Mucosa - Nasopharyngeal Respiratory Panel (PCR) - Final Rhinovirus 09/23/19 14:39 Urine, Clean Catch Streptococcus pneumoniae Antigen (M - Final 09/23/19 14:39 Urine, Clean Catch Legionella Antigen - Final 09/23/19 16:00 Mucosa - Nasopharyngeal Influenza Types A,B Direct FA (SILVIA) - Final Laboratory Results 09/24/19 17:15: Vitamin B12 790, Vitamin D 25-Hydroxy 49.6 09/24/19 17:15: RAAD Screen Negative 09/26/19 05:04: WBC 6.4, RBC 3.45 L, Hgb 10.6 L, Hct 32.9 L, MCV 95.4, MCH 30.7, MCHC 32.2, RDW Std Deviation 43.6, RDW Coeff of Phylicia 12.6, Plt Count 151, MPV 11.9, Immature Gran % (Auto) 1.700 H, Neut % (Auto) 88.6 H, Lymph % (Auto) 7.2 L, Mcdowell % (Auto) 2.2, Eos % (Auto) 0.0, Baso % (Auto) 0.3, Absolute Neuts (auto) 5.6, Absolute Lymphs (auto) 0.46 L, Nucleated RBC % 0, Differential Comment SCANNED, Platelet Estimate ADEQUATE, RBC Morphology NORM C+C Code Visit Inpatient E&M: 91262 Disch Hosp
--- NOTE | 2019-09-26 14:15 | PHA.DC.MR ---
Pharmacy Service has performed discharge medication reconciliation for this patient upon transfer to [facility]. The patient's discharge medication list was reviewed for discrepancies and discrepancies were resolved. Home Medications Aspirin [Aspirin, Baby] 81 mg PO DAILY@0800 01/24/14 carvedilol 3.125 mg tablet 6.25 mg PO BID tab 06/21/19 divalproex 250 mg tablet,delayed release 375 mg PO QHS tab 06/21/19 Acetaminophen 650 mg IN Q4H PRN PRN 09/23/19 Acetaminophen [Tylenol] 650 mg PO Q4H PRN PRN 09/23/19 Albuterol Sulfate 2.5 mg IH Q6H PRN PRN 09/23/19 Bisacodyl 10 mg IN DAILY PRN PRN 09/23/19 Budesonide 0.5 mg IH BID PRN PRN 09/23/19 Guaifenesin [Robitussin] 10 ml PO Q4H PRN PRN 09/23/19 Hydrocortisone Acetate 1 applic TP TID 09/23/19 Ipratropium/Albuterol Sulfate [Iprat-Albut 0.5-3(2.5) mg/3 ml] 3 ml IH Q4H 09/23/19 Mag Hydrox/Aluminum Hyd/Simeth [Antacid Anti-Gas Liquid] 30 ml PO Q4H PRN PRN 09/23/19 Magnesium Hydroxide [Milk Of Magnesia] 30 ml PO DAILY PRN PRN 09/23/19 Na Phos,M-B/Na Phos,Di-Ba [Fleet Enema] 1 bottle RECTAL DAILY PRN PRN 09/23/19 Nystatin Powder [Mycostatin Powder] 1 applic TOPICAL TID 09/23/19 Potassium Chloride [Klor-Con M20] 20 meq PO DAILY 09/23/19 Sennosides/Docusate Sodium [Senna Plus 8.6-50 mg Softgel] 2 ea PO QHS 09/23/19 Simethicone [Gas-X] 80 mg PO DAILY PRN PRN 09/23/19 Amoxicillin/Potassium Clav [Augmentin 875-125 Tablet] 1 ea PO BID #9 tab 09/25/19 Prednisone 10 mg PO UD #30 tab 09/25/19 Quetiapine Fumarate [Seroquel] 12.5 mg PO BIDCM tab 09/26/19
[2019-09-26 16:45] LABS: ANTINUCLEAR ANTIBODIES DIRECT Negative (Negative)
[2019-09-28 01:05] LABS: Rapid Plasmin Reagin (RPR) NONREACTIVE (NONREACTIVE)
== END 2019-09-26 13:22 | disposition skilled nursing facility (03) | DRG 202 ==
LOC: ED 15:54 → ICU 16:55 → PCU 09-24 18:07
PROVIDERS: Internal Medicine; Internal Medicine Critical Care Medicine; Physician Assistant; Admitting Provider Family Medicine; Emergency Provider Emergency Medicine; PCP Family Medicine; Visit Provider Internal Medicine
DX: J20.6 Acute bronchitis due to rhinovirus (principal); J96.01 Acute respiratory failure with hypoxia; G93.1 Anoxic brain damage, not elsewhere classified; J84.9 Interstitial pulmonary disease, unspecified; D69.6 Thrombocytopenia, unspecified; J45.909 Unspecified asthma, uncomplicated; D86.0 Sarcoidosis of lung; R13.10 Dysphagia, unspecified; Z66 Do not resuscitate; D64.9 Anemia, unspecified; F91.9 Conduct disorder, unspecified; I10 Essential (primary) hypertension; Z86.73 Personal history of transient ischemic attack (TIA), and cerebral infarction without residual deficits; Z79.82 Long term (current) use of aspirin
CPT/HCPCS: 36415; 70450; 71045; 71046; 80048; 80053; 80164; 81001; 82164; 82306; 82607; 82728; 83540; 83550; 83605; 84439; 84443; 85025; 85045; 85610; 85652; 85730; 86038; 86225; 86235; 86592; 87040; 87086; 87449; 87633; 87641; 87804; 92526; 92610; 93005; 94002; 94003; 94640; 94667; 94668; 97116; 97163; 97167; 97530; 97535; 97802; 99285; J7030; J7040; J7050; P9612; A4216; J0295

== ENCOUNTER → 2019-10-06 15:03 | Outpatient (CLI) | payer MEDICARE, MEDICAID, SELFPAY ==
[2019-09-23 16:26] VITALS: BMI 24.2
[2019-10-06 15:16] LABS: Bacteria 0 SEEN /hpf (None Seen); Mucous, Urine 0 SEEN /hpf (<or=2+); Red Blood Cells-Urine 0 SEEN /hpf (0-5)
[2019-10-06 16:53] LABS: Absolute Lymphocyte Count 0.89 X10^3/uL (0.83-4.51); Absolute Neutrophil Count 3.7 X10^3/uL (2.0-7.7); Basophil# 0.03 X10^3/uL; Basophil% 0.6 % (0-1); Eosinophil# 0.05 X10^3/uL; Hematocrit 38.7 % (37-47); Hemoglobin 12.2 g/dL (12.0-15.0); Lymphocyte # 0.89 X10^3/ul (4.0); Lymphocyte % 17.3 % (19-41); Mean Corp Hgb Conc 31.5 g/dL (32-36); Mean Corpuscular Hgb 29.8 pg (27.0-32.0); Mean Corpuscular Volume 94.6 fL (81-99); Mean Platelet Vol. 11.3 fl (6.2-12.0); Monocyte# 0.47 X10^3/uL; Monocyte% 9.2 % (0-10); NRBC Flagged by Analyzer 0 % (0-5); Neutrophil # 3.68 X10^3/uL (2.7-7.7); Neutrophil % 71.7 % (47-70); Platelet Count 225 K/mm3 (150-450); RBC Distribution Width CV 13.2 % (11.6-14.6); RBC Distribution Width SD 44.7 fl (35.1-43.9); Red Blood Count 4.09 M/mm3 (4.2-5.4); White Blood Count 5.1 K/mm3 (4.4-11.0)
[2019-10-06 17:06] LABS: Color, Urine Yellow (Yellow); Glucose, Dipstick Normal (Normal); Ketone-Dipstick 15 mg/dl (Negative); Leukocyte Esterase-Dipstick 100 /ul (Negative); Nitrite-Dipstick Negative (Negative); Occult Blood-Urine Negative /ul (Negative); Protein-Dipstick Negative (Negative); Specific Gravity, Urine 1.015 (1.002-1.030); Urine Clarity Sl. Cloudy (Clear); Urine Urobilinogen Normal (Normal)
[2019-10-06 17:10] LABS: ALB/GLOB Ratio 0.8 RATIO (0.9-2.4); AST(SGOT) 12 U/L (15-37); Alanine Aminotransfer ALT/SGPT 13 U/L (13-56); Albumin, Serum 3.1 g/dL (3.2-5.0); Alkaline Phosphatase 70 U/L (45-117); Anion Gap 2 (5-15); BUN 16 mg/dL (7-18); BUN/Creat Ratio 20.5 RATIO (10-20); Calcium,Total 8.9 mg/dL (8.5-10.1); Chloride 106 mmol/L (98-107); Creatinine, Serum 0.78 mg/dL (0.55-1.02); EST Glomerular Filtration Rate 78 mL/min (>60); Est Glom Filt Rate - Afr Amer 95 mL/min (>60); Glucose 86 mg/dL (74-106); Potassium 4.8 mmol/L (3.5-5.1); Prealbumin 18.3 mg/dL (20.0-40.0); Protein, Total 7.1 g/dL (6.4-8.2); Sodium Level 142 mmol/L (136-145); Vitamin D,25 Hydroxy 57.8 ng/mL
[2019-10-06 17:15] LABS: Urine Bilirubin Dipstick 1 mg/dL (Negative)
[2019-10-06 17:28] LABS: Squamous Epithelial Cells - UA 0-5 SEEN /hpf (5-10); White Blood Cells 0-5 SEEN /hpf (0-5); Yeast-Urine 3+ /hpf (None Seen)
== END ==
PROVIDERS: PCP Internal Medicine; Referring Provider Internal Medicine; Visit Provider Internal Medicine
DX: E55.9 Vitamin D deficiency, unspecified (principal); F32.9 Major depressive disorder, single episode, unspecified; F41.9 Anxiety disorder, unspecified; N39.0 Urinary tract infection, site not specified; R63.4 Abnormal weight loss
CPT/HCPCS: 36415; 80053; 81001; 82306; 84134; 85025; 87086; 87088

== ENCOUNTER → 2019-11-29 | Outpatient (CLI) | payer MEDICARE, SELFPAY ==
[2019-10-06 15:09] VITALS: BMI 24.2
== END | disposition home or self-care (01) ==
PROVIDERS: PCP Internal Medicine; Referring Provider Family Medicine; Visit Provider Family Medicine
DX: U07.1 COVID-19 (principal); J98.8 Other specified respiratory disorders
CPT/HCPCS: 87635; U0004

== ENCOUNTER → 2019-12-22 | Outpatient (CLI) | payer MEDICARE, MEDICAID, SELFPAY ==
[2019-10-06 15:09] VITALS: BMI 24.2
== END | disposition home or self-care (01) ==
PROVIDERS: PCP Internal Medicine; Visit Provider Nurse Practitioner Adult Health
DX: U07.1 COVID-19 (principal)
CPT/HCPCS: 87635; U0004

== ENCOUNTER → 2020-01-01 17:49 | Outpatient (CLI) | payer MEDICARE, MEDICAID, SELFPAY ==
[2019-10-06 15:09] VITALS: BMI 24.2
== END ==
PROVIDERS: PCP Internal Medicine; Referring Provider Nurse Practitioner Adult Health; Visit Provider Nurse Practitioner Adult Health
DX: J98.8 Other specified respiratory disorders (principal)
CPT/HCPCS: 87635; U0003

== ENCOUNTER → 2020-04-05 14:21 | Outpatient (CLI) | payer MEDICARE, SELFPAY ==
[2020-03-15 13:00] VITALS: BMI 20.7
[2020-04-05 18:04] LABS: Hematocrit 36.1 % (37-47); Hemoglobin 11.2 g/dL (12.0-15.0); Mean Corpuscular Hgb 29.8 pg (27.0-32.0); Platelet Count 162 K/mm3 (150-450); RBC Distribution Width CV 14.2 % (11.6-14.6); RBC Distribution Width SD 50.1 fl (35.1-43.9); Red Blood Count 3.76 M/mm3 (4.2-5.4); White Blood Count 4.7 K/mm3 (4.4-11.0)
== END ==
PROVIDERS: PCP Internal Medicine; Referring Provider Internal Medicine Pulmonary Disease; Visit Provider Internal Medicine Pulmonary Disease
DX: D64.9 Anemia, unspecified (principal)
CPT/HCPCS: 36415; 85027

== ENCOUNTER → 2020-06-10 11:05 | Outpatient (CLI) | payer MEDICARE, MEDICAID, SELFPAY ==
[2020-03-15 13:00] VITALS: BMI 20.7
--- NOTE | 2020-06-10 11:12 | MRI_ITS ---
STUDY: MRI BRAIN WITHOUT CONTRAST REASON FOR EXAM: Female, 65 years old. tremors -- X 8 years, prev stroke TECHNIQUE: Standardized multiplanar fat and water weighted pulse sequences were obtained. COMPARISON: 01/24/2015 FINDINGS: Normal size of the ventricles and extra-axial spaces for the patient''s age. There are a limited number of small white matter hyperintensities, distributed throughout the deep white matter tracts of the cerebral hemispheres, consistent with mild chronic white matter ischemic changes. Normal bilateral basal ganglia. Normal thalami. There is no extra-axial fluid accumulation. Normal flow voids within the major intracranial circulation suggesting patency by spin echo criteria. Normal sella turcica, pituitary gland, infundibular stalk, optic chiasm and hypothalamus. Normal tectal plate and pineal gland. Normal midbrain, evonne and medulla. Again noted is mild cerebellar atrophy. MRI/Brain without Contrast IMPRESSION: No acute intracranial abnormality. Cerebellar atrophy. Electronically Signed: Olga Donahue MD at 15:57 EST Tel , Service support ,
== END ==
PROVIDERS: PCP Internal Medicine; Referring Provider Registered Nurse; Visit Provider Registered Nurse
DX: R25.1 Tremor, unspecified (principal); Z86.69 Personal history of other diseases of the nervous system and sense organs; Z86.2 Personal history of diseases of the blood and blood-forming organs and certain disorders involving the immune mechanism
CPT/HCPCS: 70551

== ENCOUNTER 2020-11-25 20:20 | Inpatient (IN) | payer MEDICARE, MEDICAID, SELFPAY ==
[2020-10-17 13:39] VITALS: BMI 20.7
[2020-11-25 20:22] VITALS: PULSE 90; RESP 92; TEMP 36.2; O2SAT 92; BMI 18.6
[2020-11-25 20:29] VITALS: BP 155/136; PULSE 87; RESP 24; TEMP 36.6; O2SAT 91; O2SAT 92
--- NOTE | 2020-11-25 20:59 | EKG12_ITS ---
Test Reason : DYSRHYTHMIA Blood Pressure : / mmHG Vent. Rate : 080 BPM Atrial Rate : 080 BPM P-R Int : 186 ms QRS Dur : 098 ms QT Int : 420 ms P-R-T Axes : 034 026 064 degrees QTc Int : 484 ms Normal sinus rhythm Low voltage QRS (Limb Leads) Poor R wave progression Nonspecific T wave abnormality Confirmed by SNEHA GUO, CHARLENE ([id number]), film and video editor CRISTIAN SMILEY ([id number]) on 11/28/2020 9:01:47 AM Referred By: ASHANTI Confirmed By:CHARLENE HOOVER MD
--- NOTE | 2020-11-25 21:26 | RAD_ITS ---
INDICATION: pt aspirated on tea at lunch today, tremors and coughing ever since. EXAMINATION/TECHNIQUE: X-RAY - XR Chest 1 View COMPARISON: 09/21/2019 FINDINGS: Fibrotic scarring of the right lung is stable since the prior study with retraction of the medial right hemidiaphragm. No airspace consolidation. Normal size heart. There are calcified mediastinal lymph nodes. Normal visualized pulmonary arteries. There is atherosclerotic calcification of the aortic arch with tortuosity. There is demineralization of the osseous structures. Degenerative changes of the thoracic spine. Normal visualized ribs, clavicles, and shoulders. There is no demonstrated abnormality of the visualized soft tissue structures of the upper abdomen. RAD/Chest 1 View (Portable) IMPRESSION: No acute abnormalities. Electronically Signed: Naldo Delgado MD at 22:04 EDT Tel , Service support ,
[2020-11-25 21:38] LABS: Absolute Lymphocyte Count 0.64 X10^3/uL (0.83-4.51); Absolute Neutrophil Count 4.7 X10^3/uL (2.0-7.7); Basophil# 0.03 X10^3/uL; Basophil% 0.5 % (0-1); Eosinophil# 0.09 X10^3/uL; Eosinophils% 1.6 % (0-5); Hemoglobin 12.6 g/dL (12.0-15.0); Lymphocyte # 0.64 X10^3/ul (0.83-4.51); Lymphocyte % 11.1 % (19-41); Mean Corp Hgb Conc 31.5 g/dL (32-36); Mean Corpuscular Volume 92.2 fL (81-99); Mean Platelet Vol. 12.1 fl (6.2-12.0); Monocyte# 0.33 X10^3/uL; Monocyte% 5.7 % (0-10); NRBC Flagged by Analyzer 0 % (0-5); Neutrophil # 4.68 X10^3/uL (2.7-7.7); Neutrophil % 80.8 % (47-70); Platelet Count 139 K/mm3 (150-450); RBC Distribution Width CV 13.2 % (11.6-14.6); RBC Distribution Width SD 44.7 fl (35.1-43.9); Red Blood Count 4.34 M/mm3 (4.2-5.4); White Blood Count 5.8 K/mm3 (4.4-11.0)
[2020-11-25 22:01] LABS: ALB/GLOB Ratio 1.1 RATIO (0.9-2.4); AST(SGOT) 15 U/L (15-37); Alanine Aminotransfer ALT/SGPT 9 U/L (13-56); Albumin, Serum 3.8 g/dL (3.2-5.0); Alkaline Phosphatase 82 U/L (45-117); Anion Gap 6 (5-15); BUN 25 mg/dL (7-18); BUN/Creat Ratio 26.8 RATIO (10-20); Calcium,Total 9.5 mg/dL (8.5-10.1); Chloride 109 mmol/L (98-107); Creatinine, Serum 0.93 mg/dL (0.55-1.02); EST Glomerular Filtration Rate 64 mL/min (>60); Est Glom Filt Rate - Afr Amer 77 mL/min (>60); Globulin 3.6 g/dL (2.2-4.2); Glucose 109 mg/dL (74-106); Lipase 102 U/L (73-393); Potassium 3.7 mmol/L (3.5-5.1); Protein, Total 7.4 g/dL (6.4-8.2); Sodium Level 148 mmol/L (136-145)
[2020-11-25 22:03] VITALS: BP 119/102; PULSE 75; RESP 15; TEMP 36.4; O2SAT 95
[2020-11-25 22:08] LABS: Mucous, Urine 0 SEEN /hpf (<or=2+); Red Blood Cells-Urine 0 SEEN /hpf (0-5); Squamous Epithelial Cells - UA 0 SEEN /hpf (5-10)
[2020-11-25 22:14] LABS: Color, Urine Yellow (Yellow); Glucose, Dipstick Normal (Normal); Ketone-Dipstick 15 mg/dl (Negative); Leukocyte Esterase-Dipstick 500 /ul (Negative); Nitrite-Dipstick Negative (Negative); Occult Blood-Urine 50 /ul (Negative); Protein-Dipstick 15 mg/dl (Negative); Specific Gravity, Urine 1.025 (1.002-1.030); Urine Clarity Cloudy (Clear); Urine Urobilinogen 1 mg/dl (Normal)
[2020-11-25 22:14] LABS: Lactic Acid 1.6 mmol/L (0.4-1.9)
[2020-11-25 22:21] LABS: Urine Bilirubin Dipstick 1 mg/dL (Negative)
[2020-11-25 22:22] LABS: White Blood Cells 0-5 SEEN /hpf (0-5)
[2020-11-25 22:23] LABS: Bacteria 4+ /hpf (None Seen)
[2020-11-25 22:46] VITALS: BP 145/128; PULSE 75; RESP 20; TEMP 36.6; O2SAT 96
--- NOTE | 2020-11-25 22:46 | ED.VIS.GEN ---
History of Present Illness Chief Complaint: Chest Other Informant: Patient, Family Limited by: Dementia Onset: Days Narrative: Patient is a 65-year-old female with history of anoxic brain injury presenting from [facility] and in her dementia unit for concern of aspiration. Apparently patient drank some sweet tea today and has been coughing since. Around 730 she had an episode of sweating and all of her shaking. Patient does have a history of tremor which is seemed worse lately. The last time she had tremor this bad was when she was withdrawing from benzodiazepines for the . There is been no recent medication changes however. Patient does not have a history of aspiration. does note she had decreased oral intake over the past week. No other complaints at this time. Past Medical History - Allergies and Home Meds Allergies/Adverse Reactions: Allergies Sulfa (Sulfonamide Antibiotics) Allergy (Severe, Verified 10/06/19 14:06) Hives Past Medical History: - - Anoxic brain damage, aphasia, stroke, hypothyroid, pulmonary sarcoidosis, Takotsubo cardiomyopathy Surgical History: - Lives: [facility] Smoking Status: Never smoker - Family History Maternal Family History: Family History (Last Reviewed 03/15/20 @ 13:00 by Fabiola Dooley) Mother Hypertension Thyroid disorder Family History: Reports: Hypertension, - - Grave's dz Paternal Family History: Family History (Last Reviewed 03/15/20 @ 13:00 by Fabiola Dooley) Mother Hypertension Thyroid disorder Family History: Reports: No pertinent history Sibling Family History: Family History (Last Reviewed 03/15/20 @ 13:00 by Fabiola Dooley) Mother Hypertension Thyroid disorder Family History: Reports: No pertinent history Review of Systems General: Reports: Chills, Malaise, - - Decreased oral intake. Denies: Fever, Sweats Eyes: Denies: Visual changes - bilaterally, Diplopia ENT: Denies: Rhinorrhea, Sore throat Cardiovascular: Denies: Chest pain, Palpitations Respiratory: Reports: Cough. Denies: Dyspnea, Dyspnea on exertion Gastrointestinal: Denies: Abdominal pain, Nausea, Vomiting, Diarrhea, Melena, Hematochezia Genitourinary: Denies: Dysuria, Hematuria, Frequency Musculoskeletal: Denies: Back pain, Extremity Pain Skin: Denies: Rash, Wounds Neurological: Reports: - - Tremor. Denies: Headache, Weakness, Numbness Physical Exam Vital Signs/Narrative: Vital Signs Temp Pulse Resp BP Pulse Ox 11/25/20 22:03 97.6 F L 75 15 119/102 H 95 11/25/20 20:29 97.8 F 87 24 H 155/136 H 92 11/25/20 20:22 97.1 F L 90 92 H 92 Inital Vital Signs reviewed: Yes General: Well nourished, Well developed, No Acute Distress Head: Normocephalic, Atraumatic Eyes: Perrl, EOMI ENT: Moist mucous membranes, No rhinorrhea Neck: Supple, Nontender, No JVD Cardiovascular: Regular rate, Regular rhythm, No murmurs Respiratory: No distress, CTA bilaterally, Chest nontender. Negative for: Wheezing, Diminished Abdomen: Soft, Nontender, Nondistended, Normal bowel sounds. Negative for: Guarding, Rebound tenderness Back: Nontender, Normal Inspection Extremities: Nontender, No edema Skin: Normal color, No rash Neurological: Alert, Cranial nerves II-XII grossly intact, Normal Strength, Normal Sensation, Confused, Disoriented, - - Intermittent tremors which involve clonic-like movement of her extremities and lower face Psychological: Normal affect, Normal Mood Diagnostic/Tx/Re-eval Chest X-Ray - ED: 1 View, Read by ED Physician, Read by Radiologist, No Acute Disease Clinical Impression(s) from Imaging Studies Chest X-Ray 11/25/20 21:26 IMPRESSION: No acute abnormalities. Electronically Signed: Naldo Delgado MD at 22:04 EDT Tel , Service support , Laboratory Data 11/25/20 11/25/20 11/25/20 21:20 21:20 21:20 WBC 5.8 RBC 4.34 Hgb 12.6 Hct 40.0 MCV 92.2 MCH 29.0 MCHC 31.5 L RDW Std Deviation 44.7 H RDW Coeff of Phylicia 13.2 Plt Count 139 L MPV 12.1 H Immature Gran % (Auto) 0.300 Neut % (Auto) 80.8 H Lymph % (Auto) 11.1 L [place] % (Auto) 5.7 Eos % (Auto) 1.6 Baso % (Auto) 0.5 Absolute Neuts (auto) 4.7 Absolute Lymphs (auto) 0.64 L Nucleated RBC % 0 Sodium 148 H Potassium 3.7 Chloride 109 H Carbon Dioxide 33.0 H Anion Gap 6 BUN 25 H Creatinine 0.93 Estim Creat Clear Calc 42.90 Est GFR (MDRD) Af Amer 77 Est GFR (MDRD) Non-Af 64 BUN/Creatinine Ratio 26.8 H Glucose 109 H Lactic Acid Cancelled Calcium 9.5 Total Bilirubin 0.90 AST 15 ALT 9 L Alkaline Phosphatase 82 Troponin I < 0.015 Total Protein 7.4 Albumin 3.8 Globulin 3.6 Albumin/Globulin Ratio 1.1 Lipase 102 Urine Color Urine Clarity Urine pH Ur Specific [place] Urine Protein Urine Glucose (UA) Urine Ketones Urine Occult Blood Urine Nitrite Urine Bilirubin Urine Urobilinogen Ur Leukocyte Esterase Urine RBC Urine WBC Ur Squamous Epith Cells Urine Bacteria Urine Mucus 11/25/20 11/25/20 21:40 21:50 WBC RBC Hgb Hct MCV MCH MCHC RDW Std Deviation RDW Coeff of Phylicia Plt Count MPV Immature Gran % (Auto) Neut % (Auto) Lymph % (Auto) [place] % (Auto) Eos % (Auto) Baso % (Auto) Absolute Neuts (auto) Absolute Lymphs (auto) Nucleated RBC % Sodium Potassium Chloride Carbon Dioxide Anion Gap BUN Creatinine Estim Creat Clear Calc Est GFR (MDRD) Af Amer Est GFR (MDRD) Non-Af BUN/Creatinine Ratio Glucose Lactic Acid 1.6 Calcium Total Bilirubin AST ALT Alkaline Phosphatase Troponin I Total Protein Albumin Globulin Albumin/Globulin Ratio Lipase Urine Color Yellow Urine Clarity Cloudy Urine pH 5.0 Ur Specific [place] 1.025 Urine Protein 15 H Urine Glucose (UA) Normal Urine Ketones 15 H Urine Occult Blood 50 H Urine Nitrite Negative Urine Bilirubin 1 H Urine Urobilinogen 1 H Ur Leukocyte Esterase 500 H Urine RBC 0 SEEN Urine WBC 0-5 SEEN Ur Squamous Epith Cells 0 SEEN Urine Bacteria 4+ Urine Mucus 0 SEEN - Rhythm Strip Rhythm Strip: Sinus Rhythm Rate: 80 Ectopy: None - EKG Initial EKG Interpretation: Sinus Rhythm, - - Normal sinus rhythm at a rate of 80 Normal axis Normal intervals Nonspecific T wave changes - Medical Decision Making Patient evaluated for decreased oral intake over the past week at her nursing facility and increased tremors today. She had a coughing episode seem to have difficulty swallowing per the . Patient peers nontoxic but is having these intermittent tremors. states these been worked up and they do not know the cause. Patient is ordered a dose of Ativan to help with the tremors as well as her blood pressure but declines. She does not have any focal neurologic deficits. I do not think CT is indicated at this time. Work-up is remarkable for a UTI. She also has hyper natremia. Patient is given IV fluids and Rocephin. Urine culture is pending. Patient will require admission for IV antibiotics given that she has had decreased oral intake. I suspect she has a component of encephalopathy secondary to her UTI. ED Disposition - Plan for ED Patient: Disposition: Acute Care Hospital [facility] Diagnosis: Urinary tract infection, Hypernatremia
[2020-11-25 23:00] VITALS: BP 148/124; PULSE 74; RESP 17; TEMP 36.6; O2SAT 95
[2020-11-25] MEDS: Ceftriaxone 1 GM/50 ML BAG IV (23:00)
[2020-11-25] MEDS: 0.9% Normal Saline 1,000 ML 150 ML IV (23:01)
--- NOTE | 2020-11-25 23:05 | ED.RN ---
DIFFICULT TO OBTAIN ACCURATE BP READING SINCE PT HAS SEVERE TREMORS.
--- NOTE | 2020-11-25 23:42 | HP.PCM_ITS ---
<Celia Levi - Last Filed: 11/26/20 00:35> Problem List (1) Pneumonia Status: Acute Qualifiers: Pneumonia type: aspiration pneumonia Laterality: left (2) Urinary tract infection Status: Acute (3) Hypernatremia Status: Acute (4) Depression Status: Chronic (5) Essential (primary) hypertension Status: Chronic History of Present Illness Date of Admission: 11/25/20 Chief Complaint: Cough The patient is a 65 year old F who presents today from [facility] with complaints of cough. Staff reports that patient choked on ice tea earlier in the day and has continued to cough and now sounds rhonchorous. Patient's reports that he is also concerned because her tremors have been increased. Initial chest x-ray shows no acute abnormalities. reports patient was recently in the hospital for UTI. Urinalysis completed in ER shows protein 15, ketones 15, occult blood 50, leukocyte esterase 500. Patient denies fever, chills, shortness of breath, chest pain, pain with u rination, frequency. Past Medical History Past Medical History (Chronic Problems): Chronic Problems (Last Reviewed 11/26/20 @ 00:28 by Celia Levi, GILDARDO-C) Asthma (Chronic) Traumatic brain injury (Chronic) Depression (Chronic) Anoxic brain injury (Chronic) Pulmonary sarcoidosis (Chronic) Essential (primary) hypertension (Chronic) Cerebrovascular accident (Chronic) Medical History: Medical History (Last Reviewed 11/26/20 @ 00:28 by Celia Levi NP-C) Pulmonary sarcoidosis (Chronic) D86.0 Cerebrovascular accident (Chronic) I63.9 Anoxic brain damage Aphasia R47.01 Dysarthria R47.1 Dysphagia R13.10 Hypothyroid E03.9 History of cardiac arrest Z86.74 09/22/2013 Takotsubo cardiomyopathy I51.August Allergies Sulfa (Sulfonamide Antibiotics) Allergy (Severe, Verified 10/06/19 14:06) Hives Home Medications: Ambulatory Orders Medication Instructions Recorded Aspirin [Aspirin, Baby] 81 mg PO DAILY@0800 01/24/14 Acetaminophen 650 mg WA Q4H PRN PRN 09/23/19 Albuterol Sulfate 2.5 mg IH Q6H PRN PRN 09/23/19 Bisacodyl 10 mg WA DAILY PRN PRN 09/23/19 Budesonide 0.5 mg IH BID PRN PRN 09/23/19 Mag Hydrox/Aluminum Hyd/Simeth 30 ml PO Q4H PRN PRN 09/23/19 [Antacid Anti-Gas Liquid] Magnesium Hydroxide [Milk Of 30 ml PO DAILY PRN PRN 09/23/19 Magnesia] Na Phos,M-B/Na Phos,Di-Ba [Fleet 1 bottle RECTAL DAILY PRN PRN 09/23/19 Enema] Nystatin Powder [Mycostatin Powder] 1 applic TOPICAL TID 09/23/19 Sennosides/Docusate Sodium [Senna 2 ea PO QHS 09/23/19 Plus 8.6-50 mg Softgel] Simethicone [Gas-X] 80 mg PO DAILY PRN PRN 09/23/19 biotin 1 mg capsule 1 mg PO DAILY 10/06/19 carvedilol 6.25 mg tablet 6.25 mg PO BID 03/15/20 lorazepam 0.5 mg tablet 0.5 mg PO Q6H PRN tab 03/15/20 memantine 28 mg capsule 1 cap PO DAILY 03/15/20 sprinkle,extended release 24hr potassium chloride 20 mEq 10 meq PO DAILY tab 03/15/20 tablet,extended release(part/cryst) propranolol 40 mg tablet 40 mg PO BID tab 03/15/20 Carbidopa/Levodopa [Carbidopa-Levo 1 each PO 4X/DAY 11/25/20 25-100 mg Odt] Dronabinol [Marinol] 2.5 mg GT BIDAC 11/25/20 Guaifenesin [Robitussin] 10 ml PO Q4H PRN PRN 11/25/20 Mirtazapine 30 mg PO QHS 11/25/20 Surgical History: Surgical History (Last Reviewed 11/26/20 @ 00:28 by Celia Levi INSULATION WORKER INTERIOR SURFACE-C) History of left heart catheterization Onset Date: 08/08/13 Z98.890 08/08/2013 [facility] per Dr. Berny Goncalves: normal coronaries, Takotsabo cardiomyopathy noted. History of Z98.891 X3 History of lung biopsy Z98.890 Surgical History: - Psychiatric History: No pertinent psych hx JAVA MANAGER History: No pertinent JAVA MANAGER history Lives: [facility] Smoking Status: Never smoker Alcohol: None Drugs: None - *Family History Maternal Family History: Family History (Last Reviewed 03/15/20 @ 13:00 by Fabiola Dooley) Mother Hypertension Thyroid disorder History Items: Hypertension, - - Grave's dz Paternal Family History: Family History (Last Reviewed 03/15/20 @ 13:00 by Fabiola Dooley) Mother Hypertension Thyroid disorder History Items: No pertinent history Sibling Family History: Family History (Last Reviewed 03/15/20 @ 13:00 by Fabiola Dooley) Mother Hypertension Thyroid disorder History Items: No pertinent history Review of Systems Constitutional: Denies: Chills, Fever, Weight Change HEENT: Denies: Head Aches, Sinus Congestion, Sinus Drainage Cardiovascular: Denies: Chest Pain, Palpitations Respiratory: Reports: Cough, - - Rhonchi per penitentiary staff. Denies: Shortness of breath at rest, Sputum production Gastrointestinal: Denies: Abdominal Pain, Nausea, Vomiting Genitourinary: Denies: Dysuria Musculoskeletal: Denies: Joint Pain, Joint Tenderness Skin: Denies: Rash, Wounds Neurological: Reports: Tremor - Chronic tremor, recently worsened. Denies: Focal weakness, Numbness, Tingling Psychiatric: Denies: Anxiety, Depression, Homicidal Ideations, Suicidal Ideations Hematologic/ Lymphatic: Denies: Easy Bruising, Easy Bleeding VTE Information - Inpt Only VTE Present on Admission: No VTE Mechan Device Prophylaxis: None VTE Pharm Prophylaxis ordered?: Yes Patient Problems: Active and Suspected Problems (Last Reviewed 11/26/20 @ 00:28 by Celia Levi, GILDARDO-C) Pneumonia (Acute) Urinary tract infection (Acute) Hypernatremia (Acute) - Physical Exam Vitals/I&O's: Vital Signs Temp Pulse Resp BP Pulse Ox 97.9 F 74 17 148/124 H 95 11/25/20 23:00 11/25/20 23:00 11/25/20 23:00 11/25/20 23:00 11/25/20 23:00 Oxygen Delivery Method Room Air Weight: 102 lb 1.184 oz Body Mass Index (BMI) 18.6 Intake and Output for Last 24 Hours 11/23/20 11/24/20 11/25/20 23:59 23:59 23:59 Intake Total 500 / 500 Balance 500 / 500 General: Alert, Cooperative, Confused - History of stroke with anoxic brain damage HEENT: Atraumatic, PERRLA, EOMI, Normocephalic Neck: Supple, No JVD, Negative Carotid Bruits Lungs: Normal air movement, Diminished, Rhonchi - Left upper lobe Cardiovascular: Regular rate, Regular Rhythm, Normal S1, Normal S2, No murmurs Abdomen: Bowel Sounds Present, Soft, Non Tender Extremities: No edema, Capillary Refill Less than 3 Seconds Skin: No rashes, No breakdown Musculoskeletal: No Tenderness to Palpation of Joints or Extremities Neurological: Cranial nerves II-XII grossly intact, - - Patient has chronic tremors, abnormal movements to all 4 extremities noted Psych/Mental Status: Normal Affect, Appropriate Microbiology Past 72 Hours 11/25/20 21:20 Mucosa - Nose SARS-CoV-2 Antigen (Rapid) - Final Laboratory Results 11/25/20 21:20: WBC 5.8, RBC 4.34, Hgb 12.6, Hct 40.0, MCV 92.2, MCH 29.0, MCHC 31.5 L, RDW Std Deviation 44.7 H, RDW Coeff of Phylicia 13.2, Plt Count 139 L, MPV 12.1 H, Immature Gran % (Auto) 0.300, Neut % (Auto) 80.8 H, Lymph % (Auto) 11.1 L, Castro % (Auto) 5.7, Eos % (Auto) 1.6, Baso % (Auto) 0.5, Absolute Neuts (auto) 4.7, Absolute Lymphs (auto) 0.64 L, Nucleated RBC % 0 11/25/20 21:20: Sodium 148 H, Potassium 3.7, Chloride 109 H, Carbon Dioxide 33.0 H, Anion Gap 6, BUN 25 H, Creatinine 0.93, Estim Creat Clear Calc 42.90, Est GFR (MDRD) Af Amer 77, Est GFR (MDRD) Non-Af 64, BUN/Creatinine Ratio 26.8 H, Glucose 109 H, Calcium 9.5, Total Bilirubin 0.90, AST 15, ALT 9 L, Alkaline Phosphatase 82, Troponin I < 0.015, Total Protein 7.4, Albumin 3.8, Globulin 3.6, Albumin/Globulin Ratio 1.1, Lipase 102 11/25/20 21:20: Lactic Acid Cancelled 11/25/20 21:40: Lactic Acid 1.6 11/25/20 21:50: Urine Color Yellow, Urine Clarity Cloudy, Urine pH 5.0, Ur Specific [place] 1.025, Urine Protein 15 H, Urine Glucose (UA) Normal, Urine Ketones 15 H, Urine Occult Blood 50 H, Urine Nitrite Negative, Urine Bilirubin 1 H, Urine Urobilinogen 1 H, Ur Leukocyte Esterase 500 H, Urine RBC 0 SEEN, Urine WBC 0-5 SEEN, Ur Squamous Epith Cells 0 SEEN, Urine Bacteria 4+, Urine Mucus 0 SEEN Current Medications Sodium Chloride () 1,000 mls @ 150 mls/hr IV .[id number] [facility] Last Admin: 11/25/20 23:01 Dose: 150 mls/hr Documented by: Assessment/Plan All Active Problems (Last Reviewed 11/26/20 @ 00:28 by Celia Levi NP-C) Severe sepsis (Acute) Pneumonia (Acute) Bronchitis (Acute) Urinary tract infection (Acute) Hypernatremia (Acute) 1. Urinary tract infection -Admit to [facility] -IV Rocephin given in ER, IV cefepime ordered for empiric coverage for UTI and possible aspiration pneumonia -IV fluids 75 ml/hr ordered -PT OT to eval and treat -Infectious disease consulted for recurrent UTI -Case management consulted for discharge planning, patient from [facility] -Trend CBC and CMP daily - 2. Possible aspiration pneumonia -N.p.o. pending speech eval -IV cefepime ordered for empiric coverage for possible aspiration pneumonia and UTI -Obtain chest x-ray in a.m. -Albuterol and DuoNeb nebulizer treatments ordered 3. Essential hypertension -Continue home regimen of propanolol and carvedilol. 4. Depression -Continue Remeron, lorazepam 5. Hypernatremia -Likely due to patient poor p.o. intake -Trend daily CMP. DVT prophylaxis-subcu Lovenox This patient was seen by APOLLO Rasmussen under the supervision of Dr. Recio. <Stew Recio - Last Filed: 11/26/20 00:49> History of Present Illness The patient is a 65 year old F [] Past Medical History Medical History: Medical History (Last Reviewed 11/26/20 @ 00:28 by Celia Levi NP-C) Pulmonary sarcoidosis (Chronic) D86.0 Cerebrovascular accident (Chronic) I63.9 Anoxic brain damage Aphasia R47.01 Dysarthria R47.1 Dysphagia R13.10 Hypothyroid E03.9 History of cardiac arrest Z86.74 09/22/2013 Takotsubo cardiomyopathy I51.August Allergies Sulfa (Sulfonamide Antibiotics) Allergy (Severe, Verified 10/06/19 14:06) Hives Surgical History: Surgical History (Last Reviewed 11/26/20 @ 00:28 by Celia Levi, INSULATION WORKER INTERIOR SURFACE-C) History of left heart catheterization Onset Date: 08/08/13 Z98.890 08/08/2013 [facility] per Dr. Berny Goncalves: normal coronaries, Takotsabo cardiomyopathy noted. History of Z98.891 X3 History of lung biopsy Z98.890 - *Family History Maternal Family History: Family History (Last Reviewed 03/15/20 @ 13:00 by Fabiola Dooley) Mother Hypertension Thyroid disorder Paternal Family History: Family History (Last Reviewed 03/15/20 @ 13:00 by Fabiola Dooley) Mother Hypertension Thyroid disorder Sibling Family History: Family History (Last Reviewed 03/15/20 @ 13:00 by Fabiola Dooley) Mother Hypertension Thyroid disorder - Physical Exam Vitals/I&O's: Vital Signs Temp Pulse Resp BP Pulse Ox 97.8 F 84 18 146/105 H 95 11/25/20 23:45 11/25/20 23:45 11/25/20 23:45 11/25/20 23:45 11/26/20 00:05 Oxygen Flow Rate (L/min) 2 Oxygen Delivery Method Nasal Cannula Weight: 49.487 kg Body Mass Index (BMI) 19.9 Intake and Output for Last 24 Hours 11/24/20 11/25/20 11/26/20 23:59 23:59 23:59 Intake Total 550 / 550 162.5 / 162.5 Balance 550 / 550 162.5 / 162.5 Microbiology Past 72 Hours 11/25/20 21:20 Mucosa - Nose SARS-CoV-2 Antigen (Rapid) - Final Laboratory Results 11/25/20 21:20: WBC 5.8, RBC 4.34, Hgb 12.6, Hct 40.0, MCV 92.2, MCH 29.0, MCHC 31.5 L, RDW Std Deviation 44.7 H, RDW Coeff of Phylicia 13.2, Plt Count 139 L, MPV 12.1 H, Immature Gran % (Auto) 0.300, Neut % (Auto) 80.8 H, Lymph % (Auto) 11.1 L, [place] % (Auto) 5.7, Eos % (Auto) 1.6, Baso % (Auto) 0.5, Absolute Neuts (auto) 4.7, Absolute Lymphs (auto) 0.64 L, Nucleated RBC % 0 11/25/20 21:20: Sodium 148 H, Potassium 3.7, Chloride 109 H, Carbon Dioxide 33.0 H, Anion Gap 6, BUN 25 H, Creatinine 0.93, Estim Creat Clear Calc 42.90, Est GFR (MDRD) Af Amer 77, Est GFR (MDRD) Non-Af 64, BUN/Creatinine Ratio 26.8 H, Glucose 109 H, Calcium 9.5, Total Bilirubin 0.90, AST 15, ALT 9 L, Alkaline Phosphatase 82, Troponin I < 0.015, Total Protein 7.4, Albumin 3.8, Globulin 3.6, Albumin/Globulin Ratio 1.1, Lipase 102 11/25/20 21:20: Lactic Acid Cancelled 11/25/20 21:40: Lactic Acid 1.6 11/25/20 21:50: Urine Color Yellow, Urine Clarity Cloudy, Urine pH 5.0, Ur Specific [place] 1.025, Urine Protein 15 H, Urine Glucose (UA) Normal, Urine Ketones 15 H, Urine Occult Blood 50 H, Urine Nitrite Negative, Urine Bilirubin 1 H, Urine Urobilinogen 1 H, Ur Leukocyte Esterase 500 H, Urine RBC 0 SEEN, Urine WBC 0-5 SEEN, Ur Squamous Epith Cells 0 SEEN, Urine Bacteria 4+, Urine Mucus 0 SEEN Current Medications Acetaminophen (Acetaminophen 325 Mg Tablet) 650 mg PO Q6H PRN PRN PRN Reason: Pain Score 1-10/Temp > 100.7 F Albuterol Sulfate (Albuterol 2.5 Mg/3 Ml Vial.Neb.) 2.5 mg INHALATION Q2H PRN PRN PRN Reason: Shortness of Breath/Wheezing Albuterol/Ipratropium (Ipratropium/Albuterol Sulfate 3 Ml Ampul.Neb) 3 ml INHALATION Q4H.RT SILVIA Aspirin (Aspirin 81 Mg Tab.Chew) 81 mg PO DAILY@0800 [facility] Carbidopa/Levodopa (Carbidopa/Levodopa 25/100 Tablet) 1 tablet PO 4X/DAY [facility] Carvedilol (Carvedilol 6.25 Mg Tablet) 6.25 mg PO BID [facility] Dronabinol (Dronabinol 2.5 Mg Capsule) 2.5 mg GT BIDAC [facility] Enoxaparin Sodium (Enoxaparin 40 Mg/0.4 Ml Syringe) 40 mg SC DAILY [facility] Guaifenesin (Guaifenesin 10 Ml Udc (200mg/10ml)) 20 ml PO Q4H PRN PRN PRN Reason: COUGH Sodium Chloride () 1,000 mls @ 75 mls/hr IV .[id number] [facility] Last Admin: 11/26/20 00:14 Dose: 75 mls/hr Documented by: Cefepime HCl 2 gm/ Sodium (Chloride) 100 mls @ 200 mls/hr IV Q8 [facility] Stop: 12/03/20 06:01 Sodium Chloride () 250 mls @ 15 mls/hr IV .[id number] PRN PRN Reason: Saline Flush Sodium Chloride () 250 mls @ 15 mls/hr IV .[id number] PRN PRN Reason: Additional IVPB Infusion Lorazepam (Lorazepam 0.5 Mg Tablet) 0.5 mg PO Q6H PRN PRN Reason: AGITATION/ANXIETY Memantine (Memantine Hydrochloride 10 Mg Tablet) 10 mg PO BID [facility] Mirtazapine (Mirtazapine 30 Mg Tablet) 30 mg PO QHS [facility] Ondansetron HCl (Ondansetron 4 Mg/2 Ml Vial) 4 mg IV Q8H PRN PRN PRN Reason: NAUSEA/VOMITING Potassium Chloride (Potassium Chloride Oral Tablet 20 Meq) 10 meq PO DAILY [facility] Propranolol HCl (Propranolol 40 Mg Tablet) 40 mg PO BID [facility] Sodium Chloride (0.9% Saline Lock 10 Ml Syringe) 10 - 40 ml IV UD PRN PRN Reason: SALINE FLUSH Sodium Chloride (0.9% Saline Lock 10 Ml Syringe) 10 - 40 ml IV UD PRN PRN Reason: SALINE FLUSH Assessment/Plan Patient with significant history of cardiac arest status post anoxic brain injury who [facility] at a [facility] presenting with coughing shortness of breath and increased tremors after drinking ice tea. Staff at the penitentiary where she lives thought she was having aspiration she was brought to the emergency department. At emergent department urine was found to be abnormal. With a traumatic brain injury she is unable to make her needs known. Her who was at the bedside helped to provide history. Alert and oriented x3 but unable to make her needs fully known Heart sounds S1-S2 present Lung clear to auscultate Abdomen bowel sounds present, soft nontender nondistended Extremities without edema Acute UTI Emergency department labs were reviewed. Urinalysis abnormal. Received ceftriaxone at emergency department. With her symptoms of increased tremors ordered for inpatient. Urine culture was obtained emergency department; follow. Aspiration Keep patient n.p.o. Speech therapy to evaluate and make recommendations DVT prophylaxis Subcutaneous Lovenox. Inpatient E&M: [id number] Init Hosp L3
[2020-11-25 23:45] VITALS: BP 146/105; PULSE 84; RESP 18; TEMP 36.6; O2SAT 95; BMI 19.9
[2020-11-26] VITALS (7 sets, daily range): BP systolic 102–149; BP diastolic 51–90; PULSE 62–72; RESP 16–19; TEMP 36.6; O2SAT 93–98
[2020-11-26] MEDS: 0.9% Normal Saline 1,000 ML 75 ML IV ×2 (00:14→09:42)
[2020-11-26 07:48] LABS: Anion Gap 7 (5-15); BUN 22 mg/dL (7-18); BUN/Creat Ratio 34.4 RATIO (10-20); Calcium,Total 8.7 mg/dL (8.5-10.1); Chloride 112 mmol/L (98-107); Creatinine, Serum 0.64 mg/dL (0.55-1.02); EST Glomerular Filtration Rate 98 mL/min (>60); Est Glom Filt Rate - Afr Amer 119 mL/min (>60); Estimated Creatinine Clearance 42.65 ml/min; Glucose 79 mg/dL (74-106); Potassium 3.4 mmol/L (3.5-5.1); Sodium Level 148 mmol/L (136-145)
[2020-11-26 08:05] LABS: Absolute Neutrophil Count 2.5 X10^3/uL (2.0-7.7); Basophil# 0.02 X10^3/uL; Basophil% 0.5 % (0-1); Eosinophils% 2.6 % (0-5); Hematocrit 34.1 % (37-47); Hemoglobin 10.7 g/dL (12.0-15.0); Lymphocyte % 23.5 % (19-41); Mean Corp Hgb Conc 31.4 g/dL (32-36); Mean Corpuscular Hgb 29.6 pg (27.0-32.0); Mean Corpuscular Volume 94.5 fL (81-99); Mean Platelet Vol. 12.5 fl (6.2-12.0); Monocyte# 0.27 X10^3/uL; NRBC Flagged by Analyzer 0 % (0-5); Neutrophil # 2.53 X10^3/uL (2.7-7.7); Neutrophil % 66.1 % (47-70); Platelet Count 109 K/mm3 (150-450); RBC Distribution Width CV 13.4 % (11.6-14.6); RBC Distribution Width SD 46.5 fl (35.1-43.9); Red Blood Count 3.61 M/mm3 (4.2-5.4); White Blood Count 3.8 K/mm3 (4.4-11.0)
[2020-11-26] MEDS: Dronabinol 2.5 MG Capsule GT ×2 (09:38→15:16)
[2020-11-26] MEDS: Carvedilol 6.25 MG Tablet PO ×2 (09:38→21:02)
[2020-11-26] MEDS: Potassium Chloride Oral Tablet 20 MEQ 10 MEQ PO (09:39)
[2020-11-26] MEDS: Aspirin 81 MG TAB.CHEW PO (09:39)
[2020-11-26] MEDS: Memantine Hydrochloride 10 MG Tablet PO ×2 (09:40→21:02)
[2020-11-26] MEDS: Carbidopa/Levodopa 25/100 Tablet PO ×4 (09:41→21:03)
[2020-11-26] MEDS: Propranolol 40 MG Tablet PO ×2 (09:41→21:03)
[2020-11-26] MEDS: Enoxaparin 40 MG/0.4 ML Syringe SC (09:42)
--- NOTE | 2020-11-26 10:22 | CASEMGMT ---
Social Work Note Pt is listed as being from [facility]. KATHIE placed a call tO Gypsy at [facility]. Pt is [facility] resident and is in their Memory Care Unit. Gypsy states pt is able to return when medically cleared. Gypsy states they have no HCPOA on file for pt, and they have pt's Philip listed as Emergency Contact for pt. KATHIE faxed clincals to [facility]. Gypsy Ruano LAUNDRY ROUTEMAN, SPRING FITTER
--- NOTE | 2020-11-26 11:05 | RAD_ITS ---
STUDY: X-RAY CHEST REASON FOR EXAM: Female, 65 years old. Cough -- portable TECHNIQUE: Single AP portable view of the chest. COMPARISON: 11/25/2020 FINDINGS: There is hyperinflation of the lungs consistent with chronic obstructive lung disease (COPD). There is no demonstrated pleural abnormality. Normal size heart. Normal mediastinum and vivi. Normal visualized pulmonary arteries. Normal visualized aortic arch and descending thoracic aorta. Normal visualized thoracic spine. Normal visualized ribs, clavicles, and shoulders. There is no demonstrated abnormality of the visualized soft tissue structures of the upper abdomen. RAD/Chest 1 View (Portable) IMPRESSION: Emphysema without pneumonia or atelectasis. Electronically Signed: Seth Blandon MD at 11:31 EDT Tel , Service support ,
--- NOTE | 2020-11-26 12:11 | SP.MBSS_ITS ---
Modified Barium Swallow - Patient Information Study Date: 11/26/20 Study Time: 10:45 Direct Billable Minutes: 135 Total Minutes procedure & reportin Diagnosis: dysphagia Referring Physician: Catherine Casey Reason for Referral: Objective assessment of swallow function under fluoroscopy recommended d/t known history of silent aspiration w/ current hospitalization d/t cough and rhonchorous breathing s/p aspiration event (iced tea) at [facility]. Medical History: The patient is a 65 year old female w/ a past medical history of Asthma, Traumatic brain injury, Depression, Anoxic brain injury, Pulmonary sarcoidosis, Essential (primary) hypertension, Cerebrovascular accident, Aphasia, Dysarthria, Dysphagia, Hypothyroidism, History of cardiac ar rest and Takotsubo cardiomyopathy who presented to [facility] on 11/25/2020 from [facility] with complaints of cough. [facility] staff reported that patient choked on ice tea earlier in the day and had continued coughing and rhonchorous lung sounds. Dentition: Natural Teeth, Missing Teeth - missing upper/lower molars Mental Status: Impaired Respiratory Status: Oxygenating on Room Air - Penetration-Aspiration Scale Penetration-Aspiration Scale: OBJECTIVE ASSESSMENT OF SWALLOW FUNCTION (QUANTITATIVE ? PER TRIAL): PENETRATION / ASPIRATION SCALE (MCCARTY): 1 = does not enter airway 2 = enters airway/above vocal folds/ejected 3 = enters airway/above vocal folds/not ejected 4 = enters airway/contacts vocal folds/ejected 5 = enters airway/contacts vocal folds/not ejected 6 = enters airway/below vocal folds/ejected 7 = enters airway/below vocal folds/not ejected despite effort 8 = enters airway/below vocal folds/no effort VIDEOFLOROSCOPIC SCALE SCORE (MCCARTY): Grade I = aspiration of material that has penetrated into the laryngeal vestibule, intact cough reflex Grade II = aspiration < 10 % of the bolus, intact cough reflex Grade III = aspiration of < 10 % of the bolus, reduced cough reflex or aspiration of > 10 % of the bolus, intact cough reflex Grade IV = aspiration of > 10 % of the bolus, reduced cough reflex - Penetration-Aspiration Scale Score Thin Liquid via teaspoon Result: 5= enters airways/contacts vocal folds/not ejected Thin Liquid via teaspoon Trial 2 Result: 5= enters airways/contacts vocal folds/not ejected Thin Liquid via small single sip from cup Result: 1= does not enter airway Thin Liquid via single sip from straw Result: 1= does not enter airway Thin Liquid via single sip from straw Trial 2 Result: 3= enters airways/above vocal folds/not ejected Pudding Result: 1= does not enter airway Thin Liquid via single sip from straw Trial 3 Result: 7= enters airways/below vocal folds/not ejected despite effort Comment: Grade III = aspiration of < 10 % of the bolus, reduced cough reflex [place] Thick Liquid via single sip from straw Result: 1= does not enter airway [place] Thick Liquid via single sip from straw Trial 2 Result: 1= does not enter airway [place] Thick Liquid via small single sip from cup Result: 1= does not enter airway Cookie Result: 1= does not enter airway [place] Thick Liquid via single sip from straw Trial 3 Result: 6= enters airway/below vocal folds/ejected - able to eject w/ cued cough Comment: Grade III = aspiration of < 10 % of the bolus, reduced cough reflex [place] Thick Liquid via single sip from straw Trial 4 Result: 3= enters airways/above vocal folds/not ejected Honey Thick Liquid via single sip from straw Result: 1= does not enter airway Honey Thick Liquid via small single sip from cup Result: 1= does not enter airway - Oral Phase Labial Seal: Interlabial escape, no progression to anterior lip Tongue Control During Bolus Hold: Escape to lateral buccal cavity/floor of mouth Bolus Preparation/Mastication: Disorganized chewing/mashing with solid pieces of bolus unchewed Bolus Transport/Lingual Motion: Repetitive/disorganized tongue motion Oral Residue: Majority of bolus remaining - piecemeal deglutition, minimal oral clearance w/ inital swallow - Pharyngeal Phase Initiation of Pharyngeal Swallow: Bolus head in pyriforms Soft Palate Elevation: No bolus between soft palate and pharyngeal wall Laryngeal Elevation: Partial superior movement thyroid cart/partial apprx aryt- epig petiole Anterior Hyoid Excursion: Partial anterior movement Epiglottic Movement: Partial inversion Laryngeal Vestibule Closure at Height of Swallow: Incomplete; narrow column of air/contrast in laryngeal vestibule Pharyngeal Stripping Wave: Present - diminished Pharyngoesophageal Segment Opening: Complete distension and complete duration; no obstruction of flow Tongue Base Retraction: Trace column of contrast between tongue base & post. pharyngeal wall Pharyngeal Residue: Trace residue within or on pharyngeal structures - Esophageal Phase Esophageal Clearance: Esophageal retention - Diagnosis/Impression Diagnosis: moderate oropharyngeal dysphagia Impression: This patient presents w/ moderate oropharyngeal dysphagia. The oral phase is marked by: * disorganized oral containment w/ multiple bouts of liquid spillage to the floor of mouth while attempting to recollect for oral to pharyngeal transpo rtation * extremely slow mastication of solids * slow lingual motion w/ difficulty initiating A-P bolus transfer w/ pudding and solid textures. * piecemeal deglutition pattern utilized across all trials * premature posterior pharyngeal bolus loss noted 1x which contributed to penetration prior to swallow onset w/ nectar thickened liquid (noted to be larger bolus volume) The pharyngeal phase is marked by: * delayed pharyngeal swallow onset which contributed to penetration/aspiration of thin liquid before and before swallow onset * improved liquid bolus control and swallow onset timing when liquid viscosity increased and bolus volume was reduced * penetration w/ trace aspiration of mildly thick (nectar) liquid evident w/ larger volume bolus * patient able to effectively clear throat and re-swallow to clear scant contrast on vocal folds w/ mildly thick (nectar) liquids * cough strength not sufficient to expel tracheal aspiration of thin liquid which remained visible along the anterior tracheal wall t/o the remainder of the MBS The esophageal phase was marked by esophageal contrast retention below the pharyngoesophageal segment (PES). - Recommendations Diet: Mechanical Soft Textures - Minced and Moist, [place]-thick Liquids - Mildly Thick Comment: 1:1 supervised feed, assist w/ tray set up and intake as needed, small sips by s traw (ok to use cup if able to hold & take small sips), HOB 90 or up in chair for all intake, remain upright for 30-60 minutes after intake, meds w/ purees, CUE to COUGH/CLEAR THROAT & reswallow if wet/gurgly/hoarse vocal quality is noted w/ intake Supervision: Assist as needed - patient may requires assistance to feed; demonstrated UE tremor during study which made it difficult for patient to self- feed and consume liquid via cup, 1:1 Close Supervision Recommend Repeat Modified Barium Swallow: Yes Comment: Recommend repeat MBS prior to advancing beyond mildly thick (nectar) liquids due to the significantly weak, ineffective and inconsistent cough reponse to aspiration. Need for Skilled Speech Therapy Services: Yes Comment: Patient requires intensive skilled speech-language intervention targeting: * continued diet texture management * training and implementation of recommended compensatory strategies * training and implementation of recommended oropharyngeal strengthening exercises to facilitate improved lingual control for oral bolus clearance, swallow onset timing, and laryngeal vestibule closure/pressure * training, implementation, and Patient education regarding implementation of the FFWP Would consider quality of life if the Patient and Patient?s family request advancement to less restrictive diet ONLY if all parties comprehend the severity of the Patient?s swallow deficits and concomitant medical complications associated with aspiration. Otherwise, a follow up Modified Barium Swallow study is indicated prior to advancement to thin liquids. Education Completed: 1. Described result of evaluation., 2. Pt understands ev aluation & agrees with goals and treatment plan., 7. Pt requires further education on strategies & risks. - due to cognitive limitations Comment: Images were reviewed w/ the patient and results/recommendations discussed immediately following MBS conclusion. Patient verbalized understanding and agreement w/ education provided, but will require reinforcement d/t cognitive l imitations s/p anoxic brain injury/CVA. Agreeable to diet texture/liquid consistency modifications and initiation of dysphagia intervention w/ speech therapy. Patient's son Thai was updated re: results and recommendations via message. - Status Active ST Patient: Active - Contact Information [facility] Speech [facility]:: Jada Coates M.A., CCC-[employer] BEAN CLEANER [place] [id number] [place] [address] [email or web address]
[2020-11-26] MEDS: 0.9% Saline Lock 10 ML Syringe IV ×2 (12:26→12:39)
[2020-11-26] MEDS: Dextrose 5%/0.9% NaCl 1,000 ML 75 ML IV (12:38)
--- NOTE | 2020-11-26 13:53 | CASEMGMT ---
Pt is here from [facility]. 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 SW called pt's , message left. There is Durable POA form on the chart naming as durable POA. SW faxed updates to [facility], SW will continue to follow. MIGUEL Reece
--- NOTE | 2020-11-26 14:54 | CASEMGMT ---
Durable POA form on file, Mike is listed as durable POA. Form also states that would be pt's choice for guardian if guardianship ever needed. MIGUEL Reece
--- NOTE | 2020-11-26 15:00 | CHAPLAIN ---
Type of Pastoral Visit _x__ Initial Visit ___ Follow-up Visit ___ On-call Visit ___ General Patient Visit ___ Spiritual Assessment ___ Family Conference ___ Bereavement ___ Rapid Response ___ Code Blue ___ Other (describe below) Pastoral Care Referral From ___ Patient _x__ Family ___ Nurse ___ Physician ___ Peer Counselor ___ Hr Consultant ___ Other (describe below) Sacrament/Intervention ___ Active listening ___ Anointing ___ Caodaism ___ Bereavement ___ Communion ___ Asuncion exploration ___ ___ Life review ___ Prayer ___ Reconciliation ___ Sacrament of Sick ___ Supportive presence ___ Wedding _x__ Other (describe below) Pastoral Comments patient is sleeping and does not awaken during conversation with spouse; spouse is at bedside and gives description of recent years of health decline; spouse was caregiver until one year ago when pt was admitted to [facility] memory care; spouse is offered support and presence to talk; prayer is welcomed
--- NOTE | 2020-11-26 15:12 | CASEMGMT ---
SW spoke w/pt's . He would like to move pt from [facility] to [facility]. explained pt has been admitted multiple times from [facility] to the [facility] over the last year. He states he spoke alex/Liliana at [facility], and she had indicated that they had beds available. SW explained will call and fax referral, and they will need to review it before they accept pt, SW explained will let know whether or not [facility] can take pt, SW explained that it will likely be tomorrow before SW hears back. states understanding. SW then called [facility], spoke Kuldeep, faxed referral. She is to let this SW know whether or not they can take pt. If they can take pt, they will need to get a precert. SW will continue to follow. MIGUEL Reece
[2020-11-26] MEDS: Potassium Chloride Oral Tablet 20 MEQ 40 MEQ PO (15:16)
[2020-11-26] MEDS: Ipratropium/Albuterol Sulfate 3 ML AMPUL.NEB INHALATION ×5 (16:07→23:21)
--- NOTE | 2020-11-26 17:19 | PCM.PN.HOSP ---
Subjective Subjective: Patient was seen and examined. No acute events overnight. She denied any new complaints. Objective Data Objective Data General: Alert, Cooperative, alert oriented to self and place HEENT: Atraumatic, PERRLA, EOMI, Normocephalic Neck: Supple, No JVD, Negative Carotid Bruits Lungs: Normal air movement, Diminished Cardiovascular: Regular rate, Regular Rhythm, Normal S1, Normal S2, No murmurs Abdomen: Bowel Sounds Present, Soft, Non Tender Extremities: No bilateral leg edema Neurological: Cranial nerves II-XII grossly intact, - - Patient has chronic tremors, abnormal movements to all 4 extremities noted Psych/Mental Status: Normal Affect, Appropriate Vital Signs: Vital Signs Temp Pulse Resp BP Pulse Ox 97.8 F 72 19 H 102/51 L 97 11/26/20 15:00 11/26/20 16:26 11/26/20 16:26 11/26/20 15:00 11/26/20 15:00 Oxygen Flow Rate (L/min) 2 Oxygen Delivery Method Room Air Weight: 49.487 kg Body Mass Index (BMI) 19.9 Intake & Output: Intake and Output for Last 24 Hours 11/24/20 11/25/20 11/26/20 23:59 23:59 23:59 Intake Total 550 / 550 1472.5 / 1472.5 Balance 550 / 550 1472.5 / 1472.5 Lab / Micro Data Result Diagrams: 11/26/20 05:20 11/26/20 05:20 Labs: Laboratory Results - last 24 hr 11/25/20 11/25/20 11/25/20 21:20 21:20 21:20 WBC 5.8 RBC 4.34 Hgb 12.6 Hct 40.0 MCV 92.2 MCH 29.0 MCHC 31.5 L RDW Std Deviation 44.7 H RDW Coeff of Phylicia 13.2 Plt Count 139 L MPV 12.1 H Immature Gran % (Auto) 0.300 Neut % (Auto) 80.8 H Lymph % (Auto) 11.1 L Ascension % (Auto) 5.7 Eos % (Auto) 1.6 Baso % (Auto) 0.5 Absolute Neuts (auto) 4.7 Absolute Lymphs (auto) 0.64 L Nucleated RBC % 0 Sodium 148 H Potassium 3.7 Chloride 109 H Carbon Dioxide 33.0 H Anion Gap 6 BUN 25 H Creatinine 0.93 Estim Creat Clear Calc 42.90 Est GFR (MDRD) Af Amer 77 Est GFR (MDRD) Non-Af 64 BUN/Creatinine Ratio 26.8 H Glucose 109 H Lactic Acid Cancelled Calcium 9.5 Total Bilirubin 0.90 AST 15 ALT 9 L Alkaline Phosphatase 82 Troponin I < 0.015 Total Protein 7.4 Albumin 3.8 Globulin 3.6 Albumin/Globulin Ratio 1.1 Lipase 102 Urine Color Urine Clarity Urine pH Ur Specific [place] Urine Protein Urine Glucose (UA) Urine Ketones Urine Occult Blood Urine Nitrite Urine Bilirubin Urine Urobilinogen Ur Leukocyte Esterase Urine RBC Urine WBC Ur Squamous Epith Cells Urine Bacteria Urine Mucus 11/25/20 11/25/20 11/26/20 21:40 21:50 05:20 WBC 3.8 L RBC 3.61 L Hgb 10.7 L Hct 34.1 L MCV 94.5 MCH 29.6 MCHC 31.4 L RDW Std Deviation 46.5 H RDW Coeff of Phylicia 13.4 Plt Count 109 L MPV 12.5 H Immature Gran % (Auto) 0.300 Neut % (Auto) 66.1 Lymph % (Auto) 23.5 Ascension % (Auto) 7.0 Eos % (Auto) 2.6 Baso % (Auto) 0.5 Absolute Neuts (auto) 2.5 Absolute Lymphs (auto) 0.90 Nucleated RBC % 0 Sodium Potassium Chloride Carbon Dioxide Anion Gap BUN Creatinine Estim Creat Clear Calc Est GFR (MDRD) Af Amer Est GFR (MDRD) Non-Af BUN/Creatinine Ratio Glucose Lactic Acid 1.6 Calcium Total Bilirubin AST ALT Alkaline Phosphatase Troponin I Total Protein Albumin Globulin Albumin/Globulin Ratio Lipase Urine Color Yellow Urine Clarity Cloudy Urine pH 5.0 Ur Specific [place] 1.025 Urine Protein 15 H Urine Glucose (UA) Normal Urine Ketones 15 H Urine Occult Blood 50 H Urine Nitrite Negative Urine Bilirubin 1 H Urine Urobilinogen 1 H Ur Leukocyte Esterase 500 H Urine RBC 0 SEEN Urine WBC 0-5 SEEN Ur Squamous Epith Cells 0 SEEN Urine Bacteria 4+ Urine Mucus 0 SEEN 11/26/20 05:20 WBC RBC Hgb Hct MCV MCH MCHC RDW Std Deviation RDW Coeff of Phylicia Plt Count MPV Immature Gran % (Auto) Neut % (Auto) Lymph % (Auto) Ascension % (Auto) Eos % (Auto) Baso % (Auto) Absolute Neuts (auto) Absolute Lymphs (auto) Nucleated RBC % Sodium 148 H Potassium 3.4 L Chloride 112 H Carbon Dioxide 29.0 Anion Gap 7 BUN 22 H Creatinine 0.64 Estim Creat Clear Calc 42.65 Est GFR (MDRD) Af Amer 119 Est GFR (MDRD) Non-Af 98 BUN/Creatinine Ratio 34.4 H Glucose 79 Lactic Acid Calcium 8.7 Total Bilirubin AST ALT Alkaline Phosphatase Troponin I Total Protein Albumin Globulin Albumin/Globulin Ratio Lipase Urine Color Urine Clarity Urine pH Ur Specific [place] Urine Protein Urine Glucose (UA) Urine Ketones Urine Occult Blood Urine Nitrite Urine Bilirubin Urine Urobilinogen Ur Leukocyte Esterase Urine RBC Urine WBC Ur Squamous Epith Cells Urine Bacteria Urine Mucus Micro: Microbiology 11/25/20 21:20 Mucosa - Nose SARS-CoV-2 Antigen (Rapid) - Final Radiography Diagnostic Testing: Radiology Impression Chest X-Ray 11/25/20 21:26 IMPRESSION: No acute abnormalities. Electronically Signed: Naldo Delgado MD at 22:04 EDT Tel , Service support , Chest X-Ray 11/26/20 11:05 IMPRESSION: Emphysema without pneumonia or atelectasis. Electronically Signed: Seth Blandon MD at 11:31 EDT Tel , Service support , Rhythm Strip Rhythm Strip: Sinus Rhythm Rate: 80 Ectopy: None Assessment & Plan Assessment/Plan (1) Urinary tract infection: Status: Acute Code(s): N39.0 - Urinary tract infection, site not specified Qualifiers: Urinary tract infection type: site unspecified Hematuria presence: without hematuria Qualified Code(s): N39.0 - Urinary tract infection, site not specified (2) Hypokalemia: Status: Acute Code(s): E87.6 - Hypokalemia (3) Pneumonia: Status: Acute Code(s): J18.9 - Pneumonia, unspecified organism Qualifiers: Pneumonia type: aspiration pneumonia Laterality: unspecified laterality Lung location: unspecified part of lung Aspiration pneumonia type: unspecified Qualified Code(s): J69.0 - Pneumonitis due to inhalation of food and vomit (4) Hypernatremia: Status: Acute Code(s): E87.0 - Hyperosmolality and hypernatremia Plan: Replace potassium Switch IV fluids to D5 water Continue on IV cefepime Follow-up on urine cultures Continue rest of her home medications?reviewed
[2020-11-26] MEDS: Mirtazapine 30 MG Tablet PO (21:03)
[2020-11-27] VITALS (9 sets, daily range): BP systolic 109–143; BP diastolic 49–65; PULSE 56–68; RESP 16–17; TEMP 36.4–36.6; O2SAT 97–99
[2020-11-27] MEDS: Dextrose 5%/0.9% NaCl 1,000 ML 75 ML IV ×2 (01:54→14:46)
[2020-11-27] MEDS: Dronabinol 2.5 MG Capsule GT ×2 (06:37→16:43)
[2020-11-27] MEDS: Ipratropium/Albuterol Sulfate 3 ML AMPUL.NEB INHALATION ×5 (06:41→23:05)
[2020-11-27 08:09] LABS: Absolute Lymphocyte Count 0.81 X10^3/uL (0.83-4.51); Absolute Neutrophil Count 1.5 X10^3/uL (2.0-7.7); Basophil# 0.03 X10^3/uL; Basophil% 1.1 % (0-1); Eosinophil# 0.11 X10^3/uL; Eosinophils% 4.2 % (0-5); Hematocrit 32.7 % (37-47); Hemoglobin 10.3 g/dL (12.0-15.0); Lymphocyte # 0.81 X10^3/ul (0.83-4.51); Lymphocyte % 30.6 % (19-41); Mean Corp Hgb Conc 31.5 g/dL (32-36); Mean Corpuscular Hgb 29.3 pg (27.0-32.0); Mean Corpuscular Volume 93.2 fL (81-99); Mean Platelet Vol. 12.3 fl (6.2-12.0); Monocyte% 7.5 % (0-10); NRBC Flagged by Analyzer 0 % (0-5); Neutrophil # 1.49 X10^3/uL (2.7-7.7); Neutrophil % 56.2 % (47-70); Platelet Count 100 K/mm3 (150-450); RBC Distribution Width CV 13.5 % (11.6-14.6); RBC Distribution Width SD 45.8 fl (35.1-43.9); Red Blood Count 3.51 M/mm3 (4.2-5.4); White Blood Count 2.7 K/mm3 (4.4-11.0)
[2020-11-27 08:31] LABS: ALB/GLOB Ratio 1.1 RATIO (0.9-2.4); AST(SGOT) 10 U/L (15-37); Alanine Aminotransfer ALT/SGPT < 6 U/L (13-56); Albumin, Serum 2.9 g/dL (3.2-5.0); Alkaline Phosphatase 61 U/L (45-117); Anion Gap 3 (5-15); BUN 13 mg/dL (7-18); BUN/Creat Ratio 19.8 RATIO (10-20); Calcium,Total 8.1 mg/dL (8.5-10.1); Chloride 114 mmol/L (98-107); Creatinine, Serum 0.66 mg/dL (0.55-1.02); EST Glomerular Filtration Rate 95 mL/min (>60); Est Glom Filt Rate - Afr Amer 116 mL/min (>60); Estimated Creatinine Clearance 42.65 ml/min; Globulin 2.7 g/dL (2.2-4.2); Glucose 104 mg/dL (74-106); Potassium 3.3 mmol/L (3.5-5.1); Protein, Total 5.6 g/dL (6.4-8.2); Sodium Level 145 mmol/L (136-145)
[2020-11-27] MEDS: Aspirin 81 MG TAB.CHEW PO (08:35)
[2020-11-27] MEDS: Propranolol 40 MG Tablet PO ×2 (08:51→20:56)
[2020-11-27] MEDS: Enoxaparin 40 MG/0.4 ML Syringe SC (08:51)
[2020-11-27] MEDS: Carvedilol 6.25 MG Tablet PO ×2 (08:52→20:55)
[2020-11-27] MEDS: Memantine Hydrochloride 10 MG Tablet PO ×2 (08:52→20:56)
[2020-11-27] MEDS: Carbidopa/Levodopa 25/100 Tablet PO ×4 (08:52→20:55)
--- NOTE | 2020-11-27 11:21 | CASEMGMT ---
Addendum entered by Abi Romero 11/27/20 16:06: SW spoke w/Yajaira at the [facility] [place], she states they cannot take pt right now as they have taken on other new prison patients recently with high acuity. She states can call and put pt on the waiting list. SW spoke w/, let him know the above. SW asked him what he would like to do, he states is going to call Kathya at [facility] [place] to see how long the wait list is, and will let SW know. SW also explained still waiting to hear back from [facility], SW will call and see if they would be able to take pt and let him know. SW called [facility], the table worker packager is out of the building and still needs to review the referral, is to let SW know. SW will continue to follow, waiting now for a call back from both and [facility]. MIGUEL Reece Addendum entered by Abi Romero 11/27/20 14:41: SW called [facility], message left. SW spoke again w/, to ask what he wants to do if [facility] cannot take pt, if he would want to continue with [facility] to see if they would take pt, or have pt return to [facility]. did go see [facility] but is undecided what to do. asked when pt is ready, SW explained pt is medically ready for discharge, but we are still working out where she is going. to let SW know, if [facility] cannot take pt, if he wants to continue to consider [facility] or have pt return to [facility] . MIGUEL Reece Addendum entered by Abi Romero 11/27/20 13:17: SW spoke w/[facility], they are reviewing the referral. SW spoke w/ again, he decided to also follow up w/[facility], he is going to see that facility now, asked SW to fax referral there as well. SW called [facility], faxed referral. MIGUEL Reece Original Note: SW spoke w/Liliana at [facility], they are not going to accept the pt due to history of TBI, and Liliana states they do not think they are equipped to care for someone with a UTI. SW spoke to in regard to this, explained [facility] cannot take pt due to the TBI. SW spoke w/ about other options, provided a list of nursing homes in the area that includes quality and resource data. We discussed sending pt to another facility vs going back to [facility] for now and taking time to look at other facilities and make a change after that. would like a referral sent to [facility], he states if they cannot take her, will have her return to [facility] and he will look into other options from there. SW called [facility], faxed referral. SW will continue to follow. MIGUEL Reece
--- NOTE | 2020-11-27 13:11 | CON.PCM.ID_ITS ---
Assessment & Plan Assessment/Plan (1) Urinary tract infection: Status: Acute Code(s): N39.0 - Urinary tract infection, site not specified Qualifiers: Urinary tract infection type: site unspecified Hematuria presence: without hematuria Qualified Code(s): N39.0 - Urinary tract infection, site not specified Plan: GNR uti, will narrow cefepime to ceftriaxone. Much improved since admit. Pt and her have completed covid series. Plan on short course po abx at discharge. Will follow, thank you HPI Consult Data Date of Consult: 11/27/20 HPI Narrative HPI Narrative: DAVID SCHULTE, is a 65 F with h/o anoxic brain injury who presented from [facility] 11/25 with new onset confusion, cough, shaking, ? aspiration. Taken to ED, cxs done, cxr done, admitted, currently on cefepime, feeling better. at bedside provided additional history. Pt denies abd pain, no n/v/d, no cough or SOB now. Full ROS performed and neg except as noted above. [facility] Medical History (Updated 11/26/20 @ 17:[address] Catherine Casey MD) Anoxic brain damage Aphasia Cerebrovascular accident Dysarthria Dysphagia History of cardiac arrest Hypothyroid Pulmonary sarcoidosis Takotsubo cardiomyopathy Home Medications aspirin 81 mg PO DAILY@0800 01/24/14 [History Last Taken Unknown] acetaminophen 650 mg MS Q4H PRN PRN 09/23/19 [History Last Taken Unknown] albuterol sulfate 2.5 mg IH Q6H PRN PRN 09/23/19 [History Last Taken Unknown] alum-mag hydroxide-simeth 30 ml PO Q4H PRN PRN 09/23/19 [History Last Taken Unknown] bisacodyl 10 mg MS DAILY PRN PRN 09/23/19 [History Last Taken Unknown] budesonide 0.5 mg IH BID PRN PRN 09/23/19 [History Last Taken Unknown] magnesium hydroxide 30 ml PO DAILY PRN PRN 09/23/19 [History Last Taken Unknown] nystatin 1 applic TOPICAL TID 09/23/19 [History Last Taken Unknown] sennosides-docusate sodium 2 ea PO QHS 09/23/19 [History Last Taken Unknown] simethicone 80 mg PO DAILY PRN PRN 09/23/19 [History Last Taken Unknown] sodium phosphates 1 bottle RECTAL DAILY PRN PRN 09/23/19 [History Last Taken Unknown] biotin 1 mg capsule 1 mg PO DAILY 10/06/19 [History Last Taken Unknown] carvedilol 6.25 mg tablet 6.25 mg PO BID 03/15/20 [History Last Taken Unknown] lorazepam 0.5 mg tablet 0.5 mg PO Q6H PRN tab 03/15/20 [History Last Taken Unknown] memantine 28 mg capsule sprinkle,extended release 24hr 1 cap PO DAILY 03/15/20 [History Last Taken Unknown] potassium chloride 20 mEq tablet,extended release(part/cryst) 10 meq PO DAILY tab 03/15/20 [History Last Taken Unknown] propranolol 40 mg tablet 40 mg PO BID tab 03/15/20 [History Last Taken Unknown] carbidopa-levodopa 1 each PO 4X/DAY 11/25/20 [History Last Taken Unknown] dronabinol 2.5 mg GT BIDAC 11/25/20 [History Last Taken Unknown] guaifenesin 10 ml PO Q4H PRN PRN 11/25/20 [History Last Taken Unknown] mirtazapine 30 mg PO QHS 11/25/20 [History Last Taken Unknown] Allergy/AdvReac Type Severity Reaction Status Date / Time Sulfa (Sulfonamide Allergy Severe Hives Verified 10/06/19 14:06 Antibiotics) Family History Mother Hypertension Thyroid disorder Graves disease Surgical History History of History of left heart catheterization (08/08/13) History of lung biopsy Social History (Updated 03/15/20 @ 15:[address] Josue Gregory MD) Smoking Status: Never smoker alcohol intake: never what type of physical activity do you participate in: none Physical Exam Const alert, oriented x3 and no apparent distress General Appearance: cooperative HEENT head/scalp atraumatic Eyes PERRL and EOMs intact bilaterally Neck supple and No nodes Resp normal air movement and clear to auscultation bilaterally Cardio regular rate and regular rhythm GI normal to inspection, nondistended, normoactive bowel sounds Extremity no clubbing, cyanosis or edema Skin no rashes or lesions noted Neuro CN's II-XII intact bilaterally Lab / Micro Data Result Diagrams: 11/27/20 08:00 11/27/20 08:00 Labs: Laboratory Results - last 24 hr 11/27/20 11/27/20 08:00 08:00 WBC 2.7 L RBC 3.51 L Hgb 10.3 L Hct 32.7 L MCV 93.2 MCH 29.3 MCHC 31.5 L RDW Std Deviation 45.8 H RDW Coeff of Phylicia 13.5 Plt Count 100 L MPV 12.3 H Immature Gran % (Auto) 0.400 Neut % (Auto) 56.2 Lymph % (Auto) 30.6 [place] % (Auto) 7.5 Eos % (Auto) 4.2 Baso % (Auto) 1.1 H Absolute Neuts (auto) 1.5 L Absolute Lymphs (auto) 0.81 L Nucleated RBC % 0 Sodium 145 Potassium 3.3 L Chloride 114 H Carbon Dioxide 28.0 Anion Gap 3 L BUN 13 Creatinine 0.66 Estim Creat Clear Calc 42.65 Est GFR (MDRD) Af Amer 116 Est GFR (MDRD) Non-Af 95 BUN/Creatinine Ratio 19.8 Glucose 104 Calcium 8.1 L Total Bilirubin 0.60 AST 10 L ALT < 6 L Alkaline Phosphatase 61 Total Protein 5.6 L Albumin 2.9 L Globulin 2.7 Albumin/Globulin Ratio 1.1 Micro: Microbiology 11/25/20 21:50 Urine Culture - Preliminary Urine, Clean Catch GNR lactose combination machine tool operator Rhythm Strip Rhythm Strip: Sinus Rhythm Rate: 80 Ectopy: None
--- NOTE | 2020-11-27 13:34 | PN.HOSP_ITS ---
Subjective Subjective: Patient was seen and examined. No acute events overnight. Objective Data Objective Data Vital Signs: Vital Signs Temp Pulse Resp BP Pulse Ox 97.6 F L 62 17 128/49 H 99 11/27/20 08:37 11/27/20 11:22 11/27/20 11:22 11/27/20 08:37 11/27/20 08:37 Oxygen Flow Rate (L/min) 2 Oxygen Delivery Method Room Air Weight: 49.487 kg Body Mass Index (BMI) 19.9 Intake & Output: Intake and Output for Last 24 Hours 11/25/20 11/26/20 11/27/20 23:59 23:59 23:59 Intake Total 550 / 550 1572.5 / 1672.5 1260 / 1260 Balance 550 / 550 1572.5 / 1672.5 1260 / 1260 Lab / Micro Data Result Diagrams: 11/27/20 08:00 11/27/20 08:00 Labs: Laboratory Results - last 24 hr 11/27/20 11/27/20 08:00 08:00 WBC 2.7 L RBC 3.51 L Hgb 10.3 L Hct 32.7 L MCV 93.2 MCH 29.3 MCHC 31.5 L RDW Std Deviation 45.8 H RDW Coeff of Phylicia 13.5 Plt Count 100 L MPV 12.3 H Immature Gran % (Auto) 0.400 Neut % (Auto) 56.2 Lymph % (Auto) 30.6 [place] % (Auto) 7.5 Eos % (Auto) 4.2 Baso % (Auto) 1.1 H Absolute Neuts (auto) 1.5 L Absolute Lymphs (auto) 0.81 L Nucleated RBC % 0 Sodium 145 Potassium 3.3 L Chloride 114 H Carbon Dioxide 28.0 Anion Gap 3 L BUN 13 Creatinine 0.66 Estim Creat Clear Calc 42.65 Est GFR (MDRD) Af Amer 116 Est GFR (MDRD) Non-Af 95 BUN/Creatinine Ratio 19.8 Glucose 104 Calcium 8.1 L Total Bilirubin 0.60 AST 10 L ALT < 6 L Alkaline Phosphatase 61 Total Protein 5.6 L Albumin 2.9 L Globulin 2.7 Albumin/Globulin Ratio 1.1 Micro: Microbiology 11/25/20 21:50 Urine, Clean Catch Urine Culture - Preliminary GNR lactose obstetrics gyn 04/26/21 21:20 Mucosa - Nose SARS-CoV-2 Antigen (Rapid) - Final Rhythm Strip Rhythm Strip: Sinus Rhythm Rate: 80 Ectopy: None Physical Exam Narrative General: Alert, Cooperative, alert oriented to self and place HEENT: Atraumatic, PERRLA, EOMI, Normocephalic Neck: Supple, No JVD, Negative Carotid Bruits Lungs: Normal air movement, Diminished Cardiovascular: Regular rate, Regular Rhythm, Normal S1, Normal S2, No murmurs Abdomen: Bowel Sounds Present, Soft, Non Tender Extremities: No bilateral leg edema Neurological: Cranial nerves II-XII grossly intact, - - Patient has chronic tremors, abnormal movements to all 4 extremities noted Psych/Mental Status: Normal Affect, Appropriate Assessment & Plan Assessment/Plan (1) Urinary tract infection: Status: Acute Code(s): N39.0 - Urinary tract infection, site not specified Qualifiers: Urinary tract infection type: site unspecified Hematuria presence: without hematuria Qualified Code(s): N39.0 - Urinary tract infection, site not specified (2) Hypokalemia: Status: Acute Code(s): E87.6 - Hypokalemia (3) Pneumonia: Status: Acute Code(s): J18.9 - Pneumonia, unspecified organism Qualifiers: Pneumonia type: aspiration pneumonia Aspiration pneumonia type: unspecified Laterality: unspecified laterality Lung location: unspecified part of lung Qualified Code(s): J69.0 - Pneumonitis due to inhalation of food and vomit (4) Hypernatremia: Status: Acute Code(s): E87.0 - Hyperosmolality and hypernatremia Plan: Replace potassium Continue on IV cefepime Follow-up on urine cultures Continue rest of her home medications?reviewed PT/OT to evaluate and treat Inpatient E&M: 60502 Subs Hosp L2
[2020-11-27] MEDS: Potassium Chloride Oral Tablet 20 MEQ 60 MEQ PO (14:54)
--- NOTE | 2020-11-27 16:46 | CASEMGMT ---
[facility] can take pt. KATHIE called , he spoke w/his son and they have decided to put pt on the [facility] wait list and have pt return to [facility]. KATHIE let know pt will likely be discharged tomorrow, however someone from the floor will notify him if she is discharged today. KATHIE texted physician to let her know plan will be to return to [facility], she states pt will be discharged tomorrow. MIGUEL Reece
[2020-11-27] MEDS: Ceftriaxone 1 GM/50 ML BAG IV (20:48)
[2020-11-27] MEDS: Mirtazapine 30 MG Tablet PO (20:55)
[2020-11-28] MEDS: Ipratropium/Albuterol Sulfate 3 ML AMPUL.NEB INHALATION ×3 (02:20→11:15)
[2020-11-28 02:21] VITALS: PULSE 67; RESP 18
[2020-11-28 02:35] VITALS: BP 122/64; PULSE 62; RESP 15; TEMP 36.5; O2SAT 96
[2020-11-28] MEDS: Dextrose 5%/0.9% NaCl 1,000 ML 75 ML IV (04:55)
[2020-11-28 07:00] VITALS: PULSE 70; RESP 18; O2SAT 95
[2020-11-28] MEDS: Dronabinol 2.5 MG Capsule GT (07:10)
[2020-11-28] MEDS: Aspirin 81 MG TAB.CHEW PO (07:12)
[2020-11-28 08:29] LABS: Absolute Lymphocyte Count 0.89 X10^3/uL (0.83-4.51); Absolute Neutrophil Count 2.4 X10^3/uL (2.0-7.7); Basophil# 0.03 X10^3/uL; Basophil% 0.8 % (0-1); Eosinophil# 0.19 X10^3/uL; Eosinophils% 4.9 % (0-5); Hematocrit 40.8 % (37-47); Hemoglobin 12.6 g/dL (12.0-15.0); Lymphocyte # 0.89 X10^3/ul (0.83-4.51); Lymphocyte % 23.1 % (19-41); Mean Corp Hgb Conc 30.9 g/dL (32-36); Mean Corpuscular Hgb 29.2 pg (27.0-32.0); Mean Corpuscular Volume 94.7 fL (81-99); Mean Platelet Vol. 12.1 fl (6.2-12.0); Monocyte# 0.28 X10^3/uL; Monocyte% 7.3 % (0-10); NRBC Flagged by Analyzer 0 % (0-5); Neutrophil # 2.44 X10^3/uL (2.7-7.7); Neutrophil % 63.4 % (47-70); Platelet Count 119 K/mm3 (150-450); RBC Distribution Width CV 13.1 % (11.6-14.6); RBC Distribution Width SD 45.5 fl (35.1-43.9); Red Blood Count 4.31 M/mm3 (4.2-5.4); White Blood Count 3.9 K/mm3 (4.4-11.0)
[2020-11-28 08:30] VITALS: BP 113/63; PULSE 64; RESP 16; TEMP 36.4; O2SAT 99
[2020-11-28 09:14] LABS: AST(SGOT) 13 U/L (15-37); Alanine Aminotransfer ALT/SGPT 9 U/L (13-56); Albumin, Serum 3.2 g/dL (3.2-5.0); Alkaline Phosphatase 78 U/L (45-117); Anion Gap 4 (5-15); BUN 6 mg/dL (7-18); Calcium,Total 8.7 mg/dL (8.5-10.1); Chloride 109 mmol/L (98-107); Creatinine, Serum 0.67 mg/dL (0.55-1.02); EST Glomerular Filtration Rate 94 mL/min (>60); Est Glom Filt Rate - Afr Amer 113 mL/min (>60); Estimated Creatinine Clearance 42.65 ml/min; Globulin 3.3 g/dL (2.2-4.2); Glucose 85 mg/dL (74-106); Potassium 3.6 mmol/L (3.5-5.1); Protein, Total 6.5 g/dL (6.4-8.2); Sodium Level 142 mmol/L (136-145)
--- NOTE | 2020-11-28 09:32 | CASEMGMT ---
SW spoke w/, he called SW to check on the discharge. SW explained did speak w/physician and the plan is to discharge pt, but we are not sure yet when. SW explained that this SW or one of the other SW will call him or see him in the room to let him know pt is set up for discharge. MIGUEL Reece
[2020-11-28] MEDS: Acetaminophen 325 MG Tablet 650 MG PO (09:34)
[2020-11-28] MEDS: Propranolol 40 MG Tablet PO (09:35)
[2020-11-28] MEDS: Enoxaparin 40 MG/0.4 ML Syringe SC (09:35)
[2020-11-28] MEDS: Memantine Hydrochloride 10 MG Tablet PO (09:35)
[2020-11-28] MEDS: Carvedilol 6.25 MG Tablet PO (09:35)
[2020-11-28] MEDS: Carbidopa/Levodopa 25/100 Tablet PO ×2 (09:36→14:01)
--- NOTE | 2020-11-28 09:58 | PCM.PN.ID ---
Physical Exam Narrative Feeling fine, no fever, no abd pain, no complaints Const alert and no apparent distress General Appearance: cooperative Resp clear to auscultation bilaterally Cardio regular rate and regular rhythm GI normal to inspection, nondistended, normoactive bowel sounds Extremity no clubbing, cyanosis or edema Skin no rashes or lesions noted ID ID: Route of nutrition/ use of supplements: [] Nutritional Intake: [] IV Site: [] Walls Catheter: [] Assessment & Plan Assessment/Plan (1) Urinary tract infection: Status: Acute Code(s): N39.0 - Urinary tract infection, site not specified Qualifiers: Urinary tract infection type: site unspecified Hematuria presence: without hematuria Qualified Code(s): N39.0 - Urinary tract infection, site not specified Plan: klebs uti, on ceftriaxone. Much improved since admit. Pt and her have completed covid series. Ok for discharge on 3 days of po keflex 500mg tid. Will follow as needed
--- NOTE | 2020-11-28 10:31 | CASEMGMT ---
SW received call that pt's is here but pt has stated does not want pt to visit. asked to speak w/SW. SW called , explained pt had said that she does not want him to visit. He states she sometimes gets like that. SW explained will ask her again if she would like him to visit and let him know. SW spoke w/pt in room, she is now agreeable to have come see her, SW let weigh and charge worker and know. MIGUEL Reece
--- NOTE | 2020-11-28 10:39 | PCM.TXEXTCAR ---
Diet 11/26/20 12:00 Diet: Regular - No Added Salt Food consistency:: Mechanical (Minced/Moist) Liquid Consistency:: [place]/Mildly Thick Type of Dietary Supplement:: 120mL ensure enlive w/B&D Is pt able to select menu?: No Diet Comments: MC@L; 1:1 supervised feed, small sips by straw, HOB 90 during&after intake Routine Orders/Code Status Routine Lab Work: CBC (within 3 days) and BMP (within 3 days) Code Status: Full Code Therapies Weight Bearing: Weight bearing as tolerated Problem/Diagnosis (1) Urinary tract infection: Status: Acute Allergies/Procedures Done in Hospital Allergies Sulfa (Sulfonamide Antibiotics) Allergy (Severe, Verified 10/06/19 14:06) Hives Procedures: None Type of Care/Length of Stay Estimated LOS: Convalescent Care Less Than 30 days Type of Care Needed: Intermediate Rehab Potential: Fair Prognosis: Fair Additional Orders/Day of Discharge H&P will serve as current which was dated: 11/25/20 Day of Discharge: 11/28/20 Dietary and Speech Recommendations Dietitian Recommendations/Changes: continue regular, no added salt diet- consistency per SALES AND SERVICE REPRESENTATIVE; will add 120mL Ensure Enlive w/ breakfast and dinner and magic cup w/ lunches. Discharge Plan Admission Admit Date/Time: 11/25/20 23:27 Attending Provider: Catherine Casey Primary Care Provider: Shruthi Reid Consulting Providers: Rodger Gomez Discharge Orders/Prescriptions Prescriptions: No Action lorazepam [Ativan] 0.5 mg tablet 0.5 mg PO Q6H PRN (Reason: AGITATION/ANXIETY) RF: 0 carvedilol 6.25 mg tablet 6.25 mg PO BID RF: 0 propranolol 40 mg tablet 40 mg PO BID RF: 0 potassium chloride 20 mEq tablet,ER particles/crystals 10 meq PO DAILY RF: 0 memantine 28 mg capsule,sprinkle,ER 24hr 1 cap PO DAILY RF: 0 biotin 1 mg capsule 1 mg PO DAILY RF: 0 aspirin 81 MG tablet,chewable 81 mg PO DAILY@0800 RF: 0 acetaminophen 650 MG suppository 650 mg NM Q4H PRN PRN (Reason: pain/fever) RF: 0 albuterol sulfate 2.5 MG/3 ML solution for nebulization 2.5 mg IH Q6H PRN PRN (Reason: Sob &/Or Wheezing) RF: 0 simethicone 125 MG capsule 80 mg PO DAILY PRN PRN (Reason: Indigestion) RF: 0 magnesium hydroxide 30 ML suspension 30 ml PO DAILY PRN PRN (Reason: Constipation) RF: 0 bisacodyl 10 MG suppository 10 mg NM DAILY PRN PRN (Reason: Constipation) RF: 0 sodium phosphates 1 BOTTLE enema 1 bottle RECTAL DAILY PRN PRN (Reason: Constipation) RF: 0 budesonide 0.5 MG/2 ML suspension for nebulization 0.5 mg IH BID PRN PRN (Reason: Sob &/Or Wheezing) RF: 0 nystatin 1 APPLIC bottle 1 applic topical TID RF: 0 alum-mag hydroxide-simeth 355 ML suspension 30 ml PO Q4H PRN PRN (Reason: Indigestion) RF: 0 sennosides-docusate sodium 1 EACH capsule 2 ea PO QHS RF: 0 guaifenesin 10 ML liquid 10 ml PO Q4H PRN PRN (Reason: Cough) RF: 0 dronabinol 2.5 MG capsule 2.5 mg GT BIDAC RF: 0 carbidopa-levodopa 1 EACH tablet,disintegrating 1 each PO 4X/DAY RF: 0 mirtazapine 7.5 MG tablet 30 mg PO QHS RF: 0 Referrals: Shruthi Reid MD [Primary Care Provider] - Disposition Patient Disposition: Custodial Facility
--- NOTE | 2020-11-28 11:09 | PHA.DC.MR ---
Pharmacy Service has performed discharge medication reconciliation for this patient upon transfer to [facility]. Home Medications aspirin 81 mg PO DAILY@0800 01/24/14 acetaminophen 650 mg MO Q4H PRN PRN 09/23/19 albuterol sulfate 2.5 mg IH Q6H PRN PRN 09/23/19 alum-mag hydroxide-simeth 30 ml PO Q4H PRN PRN 09/23/19 bisacodyl 10 mg MO DAILY PRN PRN 09/23/19 budesonide 0.5 mg IH BID PRN PRN 09/23/19 magnesium hydroxide 30 ml PO DAILY PRN PRN 09/23/19 nystatin 1 applic TOPICAL TID 09/23/19 sennosides-docusate sodium 2 ea PO QHS 09/23/19 simethicone 80 mg PO DAILY PRN PRN 09/23/19 carvedilol 6.25 mg tablet 6.25 mg PO BID 03/15/20 memantine 28 mg capsule sprinkle,extended release 24hr 1 cap PO DAILY 03/15/20 potassium chloride 20 mEq tablet,extended release(part/cryst) 10 meq PO DAILY tab 03/15/20 propranolol 40 mg tablet 40 mg PO BID tab 03/15/20 carbidopa-levodopa 1 each PO 4X/DAY 11/25/20 guaifenesin 10 ml PO Q4H PRN PRN 11/25/20 mirtazapine 30 mg PO QHS 11/25/20 cephalexin 500 mg PO TID #9 capsule 11/28/20 The patient's discharge medication list was reviewed for discrepancies and discrepancies were resolved.
--- NOTE | 2020-11-28 11:24 | CASEMGMT ---
Social Work Note Pt is able to discharge back to [facility] today. KATHIE faxed completed discharge paperwork to [facility] including transfer to extended care facility, signed medication list, any scripts, and COVID screening tool. Original in SNF folder and copy on pt's chart. SW accessed trip assist and arranged transportation via cot for 2:00pm. Transportation form completed and placed on SNF folder and copy on pt's chart. SW updated RN on transportation time. SW in to speak with pt's Mike. SW updated Mike on pt's discharge and transportation time. Mike states understanding. KATHIE placed a call to [facility] at [facility] and left message updating her on discharge and transportation time. SW updated that Palliative Care referral was made for pt. KATHIE placed another call to [facility] at [facility] and updated her that Palliative referral was made. Plan: Return to [facility] with Physician's ambulance transporting pt via cot at 2:00pm [facility] [place], [facility] [place]
--- NOTE | 2020-11-28 12:38 | NURSING ---
SPOKE TIFFANY OLMSTEAD AT [facility] AND GAVE REPORT ON PT
[2020-11-28 14:03] VITALS: BP 120/65; PULSE 63; RESP 16; TEMP 36.6; O2SAT 99
--- NOTE | 2020-11-28 17:10 | PCM.DC.SUM ---
Providers Date of Admission: 11/25/20 Primary Care Physician: Dr. Shruthi Reid MD Consultations 11/25/20 23:51 Physician Consult Routine Consulting Provider: Rodger Gomez Consulted Physician Type:: Infectious Disease Reason for Consult: recurrent UTI Method of Consult:: In-Person MD Notified: Yes Date Notified:: 11/26/20 Time Notified: 13:59 Method of Notification:: Text Reason For Visit: UTI, POSSIBLE ASPIRATION PNEUMONIA Diagnosis Discharge Diagnosis (1) Urinary tract infection: Status: Acute Code(s): N39.0 - Urinary tract infection, site not specified Qualifiers: Urinary tract infection type: site unspecified Hematuria presence: without hematuria Qualified Code(s): N39.0 - Urinary tract infection, site not specified (2) Hypernatremia: Status: Resolved Code(s): E87.0 - Hyperosmolality and hypernatremia (3) Hypokalemia: Status: Resolved Code(s): E87.6 - Hypokalemia (4) Pneumonia: Status: Ruled-out Code(s): J18.9 - Pneumonia, unspecified organism Qualifiers: Pneumonia type: aspiration pneumonia Aspiration pneumonia type: unspecified Laterality: unspecified laterality Lung location: unspecified part of lung Qualified Code(s): J69.0 - Pneumonitis due to inhalation of food and vomit Medications at Discharge Home Medications aspirin 81 mg PO DAILY@0800 01/24/14 acetaminophen 650 mg TN Q4H PRN PRN 09/23/19 albuterol sulfate 2.5 mg IH Q6H PRN PRN 09/23/19 alum-mag hydroxide-simeth 30 ml PO Q4H PRN PRN 09/23/19 bisacodyl 10 mg TN DAILY PRN PRN 09/23/19 budesonide 0.5 mg IH BID PRN PRN 09/23/19 magnesium hydroxide 30 ml PO DAILY PRN PRN 09/23/19 nystatin 1 applic TOPICAL TID 09/23/19 sennosides-docusate sodium 2 ea PO QHS 09/23/19 simethicone 80 mg PO DAILY PRN PRN 09/23/19 carvedilol 6.25 mg tablet 6.25 mg PO BID 03/15/20 memantine 28 mg capsule sprinkle,extended release 24hr 1 cap PO DAILY 03/15/20 potassium chloride 20 mEq tablet,extended release(part/cryst) 10 meq PO DAILY tab 03/15/20 propranolol 40 mg tablet 40 mg PO BID tab 03/15/20 carbidopa-levodopa 1 each PO 4X/DAY 11/25/20 guaifenesin 10 ml PO Q4H PRN PRN 11/25/20 mirtazapine 30 mg PO QHS 11/25/20 cephalexin 500 mg PO TID #9 capsule 11/28/20 Hospital Course Operations None Procedures None Summary of Care Provided Minutes Spent on Discharge: 45 Hospital Course: 65-year-old female with past medical history of traumatic brain injury, resident's [facility] who comes in with complaints of cough. Patient was reported to have tripped on ice tea earlier on in the day. He was also noted to have increased tremors in her extremities. Patient's evaluation in the ED was significant for acute UTI. She was admitted to the [facility] floor and managed as acute UTI with IV antibiotics. She was kept on IV cefepime for suspicion also possible aspiration pneumonia. Acute pneumonia ruled out during this hospital stay. Urine cultures grew Klebsiella. Infectious disease was consulted on this patient. Patient was discharged on Keflex 500 mg p.o. 3 times days. Discussed with the patient's at the bedside. He noted concerns of poor p.o. intake. Patient's Dronabinol was discontinued. Patient will be followed up by dietitian in the detention. Physical Exam Narrative General: Alert, Cooperative, alert oriented to self and place HEENT: Atraumatic, PERRLA, EOMI, Normocephalic Neck: Supple, No JVD, Negative Carotid Bruits Lungs: Normal air movement, Diminished Cardiovascular: Regular rate, Regular Rhythm, Normal S1, Normal S2, No murmurs Abdomen: Bowel Sounds Present, Soft, Non Tender Extremities: No bilateral leg edema Neurological: Cranial nerves II-XII grossly intact, - - Patient has chronic tremors, abnormal movements to all 4 extremities noted Psych/Mental Status: Normal Affect, Appropriate ABG / Lab / Microbiology Data Result Diagrams: 11/28/20 08:20 11/28/20 08:20 Laboratory: Laboratory Results - last 24 hr 11/28/20 11/28/20 08:20 08:20 WBC 3.9 L RBC 4.31 Hgb 12.6 Hct 40.8 MCV 94.7 MCH 29.2 MCHC 30.9 L RDW Std Deviation 45.5 H RDW Coeff of Phylicia 13.1 Plt Count 119 L MPV 12.1 H Immature Gran % (Auto) 0.500 Neut % (Auto) 63.4 Lymph % (Auto) 23.1 [place] % (Auto) 7.3 Eos % (Auto) 4.9 Baso % (Auto) 0.8 Absolute Neuts (auto) 2.4 Absolute Lymphs (auto) 0.89 Nucleated RBC % 0 Sodium 142 Potassium 3.6 Chloride 109 H Carbon Dioxide 29.0 Anion Gap 4 L BUN 6 L Creatinine 0.67 Estim Creat Clear Calc 42.65 Est GFR (MDRD) Af Amer 113 Est GFR (MDRD) Non-Af 94 BUN/Creatinine Ratio 9.0 L Glucose 85 Calcium 8.7 Total Bilirubin 0.50 AST 13 L ALT 9 L Alkaline Phosphatase 78 Total Protein 6.5 Albumin 3.2 Globulin 3.3 Albumin/Globulin Ratio 1.0 Microbiology: Microbiology 11/25/20 21:50 Urine Culture - Final Urine, Clean Catch Klebsiella pneumoniae sp pneum Microbiology 11/25/20 21:50 Urine, Clean Catch Urine Culture - Final Klebsiella pneumoniae sp pneum 11/25/20 21:20 Mucosa - Nose SARS-CoV-2 Antigen (Rapid) - Final Meaningful Use Info Meaningful Use Diagnoses (Choose all that apply): None applicable Discharge Plan Admission Admit Date/Time: 11/25/20 23:27 Primary Reason for Your Visit: Cough, choking Attending Provider: Catherine Casey Primary Care Provider: Shruthi Reid Consulting Providers: Rodger Gomez Discharge Orders/Prescriptions Prescriptions: New cephalexin 500 mg capsule 500 mg PO TID Qty: 9 RF: 0 Continued carvedilol 6.25 mg tablet 6.25 mg PO BID RF: 0 propranolol 40 mg tablet 40 mg PO BID RF: 0 potassium chloride 20 mEq tablet,ER particles/crystals 10 meq PO DAILY RF: 0 memantine 28 mg capsule,sprinkle,ER 24hr 1 cap PO DAILY RF: 0 aspirin 81 MG tablet,chewable 81 mg PO DAILY@0800 RF: 0 acetaminophen 650 MG suppository 650 mg TN Q4H PRN PRN (Reason: pain/fever) RF: 0 albuterol sulfate 2.5 MG/3 ML solution for nebulization 2.5 mg IH Q6H PRN PRN (Reason: Sob &/Or Wheezing) RF: 0 simethicone 125 MG capsule 80 mg PO DAILY PRN PRN (Reason: Indigestion) RF: 0 magnesium hydroxide 30 ML suspension 30 ml PO DAILY PRN PRN (Reason: Constipation) RF: 0 bisacodyl 10 MG suppository 10 mg TN DAILY PRN PRN (Reason: Constipation) RF: 0 budesonide 0.5 MG/2 ML suspension for nebulization 0.5 mg IH BID PRN PRN (Reason: Sob &/Or Wheezing) RF: 0 nystatin 1 APPLIC bottle 1 applic topical TID RF: 0 alum-mag hydroxide-simeth 355 ML suspension 30 ml PO Q4H PRN PRN (Reason: Indigestion) RF: 0 sennosides-docusate sodium 1 EACH capsule 2 ea PO QHS RF: 0 carbidopa-levodopa 1 EACH tablet,disintegrating 1 each PO 4X/DAY RF: 0 mirtazapine 7.5 MG tablet 30 mg PO QHS RF: 0 Discontinued lorazepam [Ativan] 0.5 mg tablet 0.5 mg PO Q6H PRN (Reason: AGITATION/ANXIETY) RF: 0 biotin 1 mg capsule 1 mg PO DAILY RF: 0 sodium phosphates 1 BOTTLE enema 1 bottle RECTAL DAILY PRN PRN (Reason: Constipation) RF: 0 dronabinol 2.5 MG capsule 2.5 mg GT BIDAC RF: 0 No Action guaifenesin 10 ML liquid 10 ml PO Q4H PRN PRN (Reason: Cough) RF: 0 Referrals: Shruthi Reid MD [Primary Care Provider] - Disposition Patient Disposition: Group Home Facility Inpatient E&M: 25259 Disch Hosp
== END 2020-11-28 15:41 | disposition skilled nursing facility (03) | DRG 690 ==
LOC: ED 21:25 → MS3 23:49
PROVIDERS: Nurse Practitioner Family; Admitting Provider Hospitalist; Emergency Provider Emergency Medicine; PCP Internal Medicine; Visit Provider Internal Medicine
DX: N39.0 Urinary tract infection, site not specified (principal); E87.0 Hyperosmolality and hypernatremia; G93.1 Anoxic brain damage, not elsewhere classified; B96.1 Klebsiella pneumoniae [K. pneumoniae] as the cause of diseases classified elsewhere; E87.6 Hypokalemia; I10 Essential (primary) hypertension; F32.9 Major depressive disorder, single episode, unspecified; R25.1 Tremor, unspecified; Z79.82 Long term (current) use of aspirin; Z79.899 Other long term (current) drug therapy; Z87.820 Personal history of traumatic brain injury
CPT/HCPCS: 36415; 71045; 74230; 80048; 80053; 81001; 83605; 83690; 84484; 85025; 87077; 87086; 87088; 87186; 87426; 92526; 92610; 92611; 93005; 94640; 97162; 97167; 97530; 97535; 99285; J7030; J7040; A4216

== ENCOUNTER → 2021-02-09 09:42 | Outpatient (REF) | payer SELFPAY ==
[2020-11-25 23:45] VITALS: BMI 19.9
[2021-02-09 09:43] LABS: Mucous, Urine 0 SEEN /hpf (<or=2+); Red Blood Cells-Urine 0 SEEN /hpf (0-5)
[2021-02-09 09:53] LABS: Color, Urine Yellow (Yellow); Glucose, Dipstick Normal (Normal); Ketone-Dipstick Negative (Negative); Leukocyte Esterase-Dipstick 500 /ul (Negative); Nitrite-Dipstick Negative (Negative); Occult Blood-Urine 10 /ul (Negative); Protein-Dipstick Negative (Negative); Urine Bilirubin Dipstick Negative (Negative); Urine Clarity Sl. Cloudy (Clear); Urine Urobilinogen Normal (Normal)
[2021-02-09 10:23] LABS: Bacteria 2+ /hpf (None Seen); Squamous Epithelial Cells - UA 0-5 SEEN /hpf (5-10); White Blood Cells 5-10 SEEN /hpf (0-5)
== END ==
LOC: OLS.SW400 09:42
PROVIDERS: PCP Internal Medicine; Visit Provider Internal Medicine
DX: R82.91 Other chromoabnormalities of urine (principal)
CPT/HCPCS: 81001; 87077; 87086; 87088; 87186

== ENCOUNTER → 2021-03-26 14:00 | Outpatient (REF) | payer SELFPAY ==
[2021-03-27 08:28] LABS: Color, Urine Yellow (Yellow); Glucose, Dipstick Normal (Normal); Ketone-Dipstick Negative (Negative); Leukocyte Esterase-Dipstick 100 /ul (Negative); Nitrite-Dipstick Negative (Negative); Occult Blood-Urine 10 /ul (Negative); Protein-Dipstick Negative (Negative); Urine Bilirubin Dipstick Negative (Negative); Urine Clarity Sl. Cloudy (Clear); Urine Urobilinogen Normal (Normal); Urine pH 6.5 (5.0 - 8.0)
== END ==
LOC: OLS.SW400 14:00
PROVIDERS: PCP Internal Medicine; Visit Provider Internal Medicine
DX: N39.0 Urinary tract infection, site not specified (principal)
CPT/HCPCS: 81002; 87077; 87086; 87088; 87186